=== PATIENT | male | born 1975 | race Caucasian/White ===

== ENCOUNTER 2023-07-07 13:42 | Inpatient (IN) | payer MEDICARE, SELFPAY ==
[2023-07-07 09:22] VITALS: BP 123/81
[2023-07-07 09:40] LABS: % Basophils 1.1 % (0-2); % Eosinophils 1.8 % (0-6); % Immature Granulocytes 2.3 % (0-0.5); % Lymphocytes 19.1 % (20.5-51.1); % Monocytes 10.9 % (1.7-9.3); % Neutrophils 64.8 % (42.2-75.2); Absolute Basophils 0.1 10^3/uL (0-0.2); Absolute Eosinophils 0.2 10^3/uL (0-0.7); Absolute Immature Granulocytes 0.2 10^3/uL (0-0.05); Absolute Lymphocytes 1.8 10^3/uL (1.2-3.4); Hematocrit 47.2 % (39.0-52.0); Hemoglobin 16.9 g/dL (13.0-18.0); Mean Corp Hgb Conc. 35.8 g/dL (33.0-37.0); Mean Corpuscular Hgb 29.8 pg (27.0-31.0); Mean Corpuscular Volume 83.2 fL (80.0-94.0); Mean Platelet Volume 9.7 fL (7.4-10.4); Nucleated Red Blood Cells % 0 % (-); Platelet Count 415 10^3/uL (130-400); Red Blood Cell Count 5.67 10^6/uL (4.70-6.10); Red Cell Dist. Width 13.9 % (11.5-14.5); White Blood Cell Count 9.3 10^3/uL (4.8-10.8)
[2023-07-07 10:00] LABS: ALT (SGPT) 23 U/L (0-50); AST (SGOT) 26 U/L (17-59); Albumin 4.2 g/dl (3.5-5.0); Alkaline Phosphatase 76 U/L (38-126); Blood Urea Nitrogen 6 mg/dl (9-20); Calcium 9.4 mg/dl (8.4-10.2); Carbon Dioxide 24 mmol/L (22-30); Chloride 87 mmol/L (98-107); Glucose 106 mg/dl (70-99); Potassium 5.2 mmol/L (3.5-5.1); Sodium 119 mmol/L (135-145); Total Bilirubin 0.7 mg/dl (0.2-1.3); Total Protein 6.7 g/dl (6.3-8.2); eGFR > 60.00
--- NOTE | 2023-07-07 10:27 | ED.GENMED ---
History of Present Illness
General
Chief Complaint: Abnormal Lab Value
Time Seen by Provider: 07/07/23 10:05
Travel History
Have you had any contact with someone who has COVID-19?: No
Do you have any symptoms of coronavirus? Fever > 100 degrees, chills, cough, shortness of breath, sore throat, loss of taste or smell, muscle aches, or headache?: No
History of Present Illness
History of Present Illness:
47-year-old male with a history of polycythemia, schizophrenia, hypothyroidism, and alcohol abuse now in remission presents to the emergency department due to abnormal outpatient labs. He denies any complaints, states he saw his primary care
physician for routine checkup and was noted to have a sodium level of 119. He does have prior history of mild hyponatremia that was felt to be most likely due to alcohol abuse. He does take multiple antipsychotics as well as spironolactone. In
regards to fluid intake he states 'I drink 1 L of soda a day and nothing else'. States that he no longer drinks alcohol. Denies any fevers or chills. Denies any dizziness or lightheadedness
Past History
Past History
ED Past Medical History: HTN, Hypercholesterolemia and Psychiatric (schizophrenia, alcohol abuse)
Social History
Tobacco: Smoker
Alcohol: Chronic alcoholic
Personal: Single
Living: other (detention)
Review of Systems
Review of Systems
Allergies reviewed?: Yes
All Other Systems: ROS reviewed and negative except as documented in HPI and ROS
Phy Exam
Physical Exam
Physical Exam:
GEN: Well appearing, NAD, WDWN
HEENT: Oral mucosa moist, no scleral icterus
Cardiac: Regular rate
Lung: No respiratory distress, no tachypnea
MSK: No gross deformity or injuries
Skin: Good color, no pallor or jaundice, no rashes
Neuro: AO x3, moves all extremities freely. Cranial nerves II through XII grossly intact
Psych: Calm, cooperative
Course
Orders/Labs/Results
Orders:
Orders
07/07/23 Breakfast
Cholesterol Lowering
At Your Request: Limited Participation
Does patient need a safe tray?: No
Fluid Restriction: 1200 mL/day (40 oz)
Cholesterol Lowering: Sodium, 2 Gram
07/07/23 09:35
Alcohol Urgent
Complete Blood Count/With Diff Urgent
Comprehensive Metabolic Panel Urgent
Cortisol, Random Urgent
Comment: CORTISOL ADDED ONBY FLOOR 1:30PM 07-07-23
Serum Osmolality Urgent
Comment: ADD ON
TSH Reflex To Free T4 Urgent
Comment: ADD ON
07/07/23 10:10
Add On- LAB Urgent
Tests Added?: serum osmolality, alcohol, TSH w reflex
07/07/23 10:42
Osmolality, Random Urine Urgent
Date Specimen was Collected: 07/07/23
Time Specimen was Collected: 10:34
Urinalysis Reflex To Culture Urgent
Date Specimen was Collected: 07/07/23
Time Specimen was Collected: 10:34
Urine Microscopic Reflex Cult Urgent
Urine Sodium Urgent
Date Specimen was Collected: 07/07/23
Time Specimen was Collected: 10:34
07/07/23 11:51
Nicotine [Nicoderm Transdermal] 14 mg TRANSDERM NOW STA
07/07/23 13:00
3% Sodium Chloride 250 ml [Sodium Chloride 3%] 150 ml IV ONCE
07/07/23 13:18
Admit/Transfer Patient As Directed
Co-Sign Provider:
Level of Care: Inpatient admission
Assign to:: Telemetry
Physician / Group: rohit
Diagnosis: hyponatremia
Reason for Telemetry: Other
Other Reason for Telemetry: hyponatremia
Date to Stop Telemetry: 07/09/23
Time to Stop Telemetry: 11:00
Reason for Hospitalization: hyponatremia
Expected length of stay greater than two midnights?: Yes
ELOS- Estimated Length of Stay in days: 3
I certify the patient meets the requirements for IP care: Yes
07/07/23 13:22
Code Status As Directed
Resuscitation Status: Full Code
07/07/23 13:33
Add On- LAB Urgent
Tests Added?: cortisol
07/07/23 14:37
Acetaminophen [Tylenol] 650 mg PO Q4HPRN PRN
07/07/23 14:37
NEPHROLOGY CONSULT Routine
Consulting Provider: Vishnu Zuluaga
Was physician already notified: Yes
Activity As Directed
Activity Level: As Tolerated
Vital Signs As Directed
Frequency: Per unit guidelines
DX Deep Vein Thrombosis Video Routine
07/07/23 14:58
Cortisol, Random Stat
07/07/23 18:00
Clopidogrel Bisulfate [Plavix] 75 mg PO QPM
Enoxaparin Sodium [Lovenox] 40 mg SC QPM
07/07/23 20:00
Carbamazepine [Tegretol] 200 mg PO BID
Divalproex Delayed Rel. 12 Hr [Depakote (12 Hr Release)] 500 mg PO BID
Lisinopril [Zestril] 20 mg PO BID
Metoprolol Xl [Toprol Xl] 25 mg PO BID
07/07/23 22:00
Atorvastatin [Lipitor] 80 mg PO HS
Risperidone [Risperdal] 3 mg PO HS
07/08/23 06:00
Basic Metabolic Panel IN AM
Complete Blood Count/No Diff IN AM
07/08/23 07:00
Levothyroxine [Synthroid] 25 mcg PO DAILY@0700
07/08/23 08:00
Amlodipine [Norvasc] 10 mg PO Daily
Aspirin Chewable [Low Strength Aspirin] 81 mg PO DAILY
Nicotine [Nicoderm Transdermal] 14 mg TRANSDERM DAILY
07/09/23 06:00
Basic Metabolic Panel IN AM
Complete Blood Count/No Diff IN AM
07/09/23 11:00
DC Protocol for Telemetry ONCE
07/10/23 06:00
Basic Metabolic Panel IN AM
Complete Blood Count/No Diff IN AM
07/11/23 06:00
Basic Metabolic Panel IN AM
Complete Blood Count/No Diff IN AM
07/12/23 06:00
Basic Metabolic Panel IN AM
Complete Blood Count/No Diff IN AM
Abnormal Lab Results
07/07/23 07/07/23
09:35 10:42
Plt Count 415 H 10^3/uL
(130-400)
Abs Immat Gran (auto) 0.2 H 10^3/uL
(0-0.05)
Absolute Monos (auto) 1.0 H 10^3/uL
(0.1-0.6)
Immature Gran % 2.3 H %
(0-0.5)
Lymphocytes % 19.1 L %
(20.5-51.1)
Monocytes % 10.9 H %
(1.7-9.3)
Sodium 119 L* mmol/L
(135-145)
Potassium 5.2 H mmol/L
(3.5-5.1)
Chloride 87 L mmol/L
(98-107)
BUN 6 L mg/dl
(9-20)
Glucose 106 H mg/dl
(70-99)
Serum Osmolality 253 L mOsm/kg
(275-300)
Urine Ketones 1+ A
(Negative)
Urine Urobilinogen 2+ A
(Neg - 1+)
Leukocyte Esterase Rfl Trace A
(Negative)
Urine Bacteria (Reflex) Few A
(Negative)
Urine Sodium 16 L mmol/L
(30-90)
07/07/23 09:35
07/07/23 09:35
Vital Signs
Initial and Last Documented VS:
Initial Vital Signs
Temp Pulse Resp BP Pulse Ox
98.2 F 67 16 123/81 100
07/07/23 09:22 07/07/23 09:22 07/07/23 09:22 07/07/23 09:22 07/07/23 09:22
Last Documented Vital Signs
Temp Pulse Resp BP Pulse Ox
98 F 62 18 159/86 100
07/07/23 14:51 07/07/23 14:51 07/07/23 14:51 07/07/23 14:51 07/07/23 14:51
MDM/Problems Addressed
MDM/Problems Addressed:
Hyponatremia was confirmed in the emergency department today. The labs were discussed with nephrology on-call who requested we start hypertonic saline at a rate of 20 cc/h for a total of 150 mL. Patient be admitted to the hospitalist service.
Hyponatremia is likely multifactorial in the setting of carbamazepine use/SIADH coupled with spironolactone
*Critical Care Note
Total Time (30-74mins, 75-104mins- exclusive of procedures): 30 minutes
comment:
Critical care time: 30 minutes
Critical care time was exclusive of: Separately billable procedures, treating other patients, and teaching time
Critical care was necessary to treat or prevent imminent or life-threatening deterioration of the following conditions: hyponatremia
Critical care time spent personally by me on the following activities:
[x] Review of old charts
[x] Obtaining history from patient or surrogate
[x] Ordering and review of the laboratory studiesx
[ ] Ordering and review of radiographic studies
[x] Ordering and performing treatments and interventions
[x] Patient patient's response to treatment
[x] Development of treatment plan with patient or surrogate
ED Attending Note
-
Portions of this chart may have been created with voice recognition software.� Occasional wrong word or��sound alike� substitutions may have occurred due to the inherent limitations of voice recognition software.
Discharge Plan
Departure
Patient Disposition: Admit
Date of Disposition: 07/07/23
Time of Disposition: 11:54
Presentation/result/management discussed w/ accepting MD/DO: Hospitalist
Discharge Problem:
Hyponatremia
Interventions
Interventions:
*Risk Screen - Suicide Last Done: 07/07/23 13:52
*General Assessment Last Done: 07/07/23 13:52
*Neglect/Abuse Screening Last Done: 07/07/23 13:52
ED- Fall Risk Assessment Last Done: 07/07/23 14:13
*ED COVID-19 Vaccine History Last Done: 07/07/23 13:52
*Nursing Disposition Last Done: 07/07/23 14:13
Discharge Date and Time
Discharge Date/Time: 07/07/23 14:30
[2023-07-07 10:35] LABS: Alcohol None Detected
[2023-07-07 11:01] LABS: Osmolality Serum 253 mOsm/kg (275-300)
[2023-07-07 11:02] LABS: TSH Reflex To Free T4 1.64 uIU/ml (0.47-4.68)
[2023-07-07 11:13] LABS: Urine Sodium 16 mmol/L (30-90)
[2023-07-07 11:20] LABS: Osmolality Urine 338 mOsm/kg (300-900)
[2023-07-07 11:32] LABS: Urine Albumin Trace (Neg - Trace); Urine Bilirubin Negative (Negative); Urine Character Clear (Clear); Urine Color Yellow; Urine Glucose Negative (Negative); Urine Ketone 1+ (Negative); Urine Leukocyte Trace (Negative); Urine Nitrite Negative (Negative); Urine Occult Blood Negative (Negative); Urine Urobilinogen 2+ (Neg - 1+)
[2023-07-07 11:52] LABS: Urine Bacteria Few (Negative); Urine Red Blood Cell 0-2 /HPF (0-2); Urine Squamous Cell 0-2 /LPF (Few); Urine White Cell 0-2 /HPF (0-5)
[2023-07-07] MEDS: NICODERM TRANSDERMAL 14 MG TRANSDERM (12:02)
--- NOTE | 2023-07-07 12:49 | HPS.HSE ---
Family Physician
-
Family Physician: Reinaldo Beyer
Chief Complaint
-
low sodium
History of Present Illness
47 year old with past medical history for polycythemia vera, schizophrenia, hypothyroidism, alcohol abuse, coronary artery disease status post 1 stent presented with low sodium. Patient had and had blood work done yesterday. He was asked to come
to the ER by nurse practitioner for low sodium. Patient drinks 1 L soda every day. Patient denies any headache, dizziness, syncopal episode. Patient denies any blurry vision, numbness, tingling. Patient denies any chest pain, short of breath.
Patient denies any abdominal pain, nausea, vomiting, diarrhea. Patient denies dysuria hematuria. Patient had a cardiac stent placed last week at [facility].
Sodium of 119. patient started on 3% saline. Admitting for further management
Medical History
Past Medical History
Past Medical History: Reports Other
Additional Past Medical History:
Hypothyroidism
Schizophrenia
Hyperlipidemia
Tobacco abuse
peripheral vascular disease
Alcohol abuse
Past Surgical History: Reports Other
Additional Past Surgical History:
Coronary artery disease
Social History
Tobacco: Smoker (1 pack a day)
Alcohol: Former
Drug: None
Personal: Single
Living: Assisted Living
Family History
Family History: Not pertinent
Allergies / Home Medications
Allergies reflects when Allergies were last updated in [facility].
Home Medications with original date entered in [facility]
Allergy/Medication List:
Allergies
Allergy/AdvReac Type Severity Reaction Status Date / Time
codeine Allergy stiff Verified 08/22/20 10:37
muscles
Home Medications
carbamazepine 200 mg tablet 200 mg PO BID Mental Health/Anxiety 08/22/20
levothyroxine 25 mcg tablet 25 mcg PO DAILY@0700 Thyroid 08/22/20
risperidone 3 mg tablet (Risperdal) 3 mg PO HS Mental Health/Anxiety 08/22/20
amlodipine 10 mg tablet (Norvasc) 10 mg PO Daily Blood Pressure 07/07/23
aspirin 81 mg chewable tablet 81 mg PO DAILY 07/07/23
atorvastatin 80 mg tablet 80 mg PO HS 07/07/23
clopidogrel 75 mg tablet 75 mg PO QPM 07/07/23
divalproex 500 mg tablet,delayed release 500 mg PO BID seizure and psych 07/07/23
lisinopril 20 mg tablet 20 mg PO BID 07/07/23
metoprolol succinate 25 mg tablet,extended release 24 hr 25 mg PO BID 07/07/23
spironolactone 25 mg tablet 25 mg PO DAILY 07/07/23
Review of Systems
-
Constitutional: Reports No Symptoms
EENT: Reports No Symptoms
Respiratory: Reports No Symptoms
Cardiac: Reports No Symptoms
Abdomen/GI: Reports No Symptoms
: Reports No Symptoms
Musculoskeletal: Reports No Symptoms
Skin: Reports No Symptoms
Neurological: Reports No Symptoms
Endocrine: Reports No Symptoms
Hematologic/Lymphatic: Reports No Symptoms
Psych: Reports No Symptoms
Physical Exam
Vital Signs
Vital Signs
Temp Pulse Resp BP Pulse Ox
98.2 F 67 16 123/81 100
07/07/23 09:22 07/07/23 09:22 07/07/23 09:22 07/07/23 09:22 07/07/23 09:22
Physical Exam
General: Well Developed, Well Nourished and No Apparent Distress
HEENT: NormoCephalic, Moist mucous membranes and Atraumatic
Respiratory: Clear
Cardiac: S1/S2 and Regular Rhythm; No Murmur or Rub
GI: Soft, Non Tender, Non Distended and Normal Bowel Sounds; No Organomegaly
Rectal: Deferred by Provider
Musculoskeletal: No Clubbing, No Cyanosis and No Edema
Skin: No Rash
Neuro: AO x 3 and Nonfocal/grossly intact
Psych: Calm
Laboratory Results
-
07/07/23 09:35
07/07/23 09:35
Laboratory Results
Total Bilirubin 0.7 mg/dl (0.2-1.3) 07/07/23 09:35
AST 26 U/L (17-59) 07/07/23 09:35
ALT 23 U/L (0-50) 07/07/23 09:35
Alkaline Phosphatase 76 U/L (38-126) 07/07/23 09:35
Data Reviewed
-
Lab Data: Labs Reviewed by me
Impression/Plan
-
asymptomatic hyponatremia/hyperkalemia likely from polydipsia/psych medication
-na 119, k 5.2,serum osm 253
3% normal saline continued
-BMP in am
-fluid restriction
-nephro following
# Essential hypertension
-Blood pressure stable in the ER
-Norvasc continued
-Lisinopril continued
-Metoprolol continued
-Hold spironolactone
# Coronary artery disease
-Status post cardiac stent
-Aspirin continued
-Plavix continued
# History of schizophrenia
-Carbamazepine continued
-Depakote continue
-Risperidone continued
# Hypothyroidism
-Levothyroxine continued
# DVT prophylaxis
-Lovenox subcu
CODE STATUS
- Full code
[2023-07-07 12:54] VITALS: BP 154/90
[2023-07-07] MEDS: SODIUM CHLORIDE 3% 150 IV (12:57)
--- NOTE | 2023-07-07 13:40 | W.CON.NEPH ---
Consultation
-
Date/Time Consultation Requested: July 07, 2023 11:00am
Date/Time Consultation Performed: July 07, 2023 1:00 pm
Requesting Provider: Shaista
Performing Provider: Jefferson
Reason for Consultation: Hyponatremia
Medical History
-
Chief Complaint: Hyponatremia
History of Present Illness:
The patient is a 47-year-old male with a past medical history of hyponatremia whom we had actually seen when he presented in 2020 for symptomatic hyponatremia and a serum sodium level of 101. Following that visit he was discharged on a fluid
restriction and Lasix. The patient tells me he has not been on Lasix or fluid restrict. The patient does have a significant history of schizophrenia and is currently maintained on carbamazepine and divalproex as he has had prior seizure activity
from alcohol withdrawal. He does have a history of alcohol abuse but states he has not had a drink in over 3 years. He does have a history of hypertension which has been controlled on the combination of his amlodipine metoprolol lisinopril and
Aldactone. He is chronically maintained on levothyroxine for his hyponatremia. The patient had been seen by our nephrology office on [address] Boudreaux for consultation for sodium of 128 which had been noted from June 23, 2023. He was to be
placed on a fluid restriction although he states he is not on fluid. Last evening I received a call from [place] with a serum sodium of 119 and I contacted the patient and told him to present to the emergency room where his euvolemic
hyponatremia and elevated risk of seizure. On presentation to the emergency room, he denies specific complaints and states that he feels at his baseline.
Past Medical History
Seizure disorder likely from alcohol withdrawal
Chronic tobacco
Former alcohol abuse
Hypertension
Schizophrenia
Anxiety
Hypothyroidism
Dyslipidemia
Polycythemia
Social History
Ex alcoholic
Continues to smoke
Lives in a [facility]
Family History
No chronic kidney disease
Allergies / Home Medications
Allergy/AdvReac Type Severity Reaction Status Date / Time
codeine Allergy stiff Verified 08/22/20 10:37
muscles
�Medication �Instructions �Recorded �Confirmed �Type
carbamazepine 200 mg tablet 200 mg PO BID Neurological 08/22/20 07/07/23 History
Condition
levothyroxine 25 mcg tablet 25 mcg PO DAILY@0700 Thyroid 08/22/20 07/07/23 History
risperidone 3 mg tablet (Risperdal) 3 mg PO HS Neurological Condition 08/22/20 07/07/23 History
amlodipine 10 mg tablet (Norvasc) 10 mg PO Daily Blood Pressure 07/07/23 07/07/23 History
aspirin 81 mg chewable tablet 81 mg PO DAILY Blood Clot 07/07/23 07/07/23 History
Prevention/Tx
atorvastatin 80 mg tablet 80 mg PO HS High Cholesterol 07/07/23 07/07/23 History
clopidogrel 75 mg tablet 75 mg PO QPM Blood Clot 07/07/23 07/07/23 History
Prevention/Tx
divalproex 500 mg tablet,delayed 500 mg PO BID seizure and psych 07/07/23 07/07/23 History
release
lisinopril 20 mg tablet 20 mg PO BID Blood Pressure 07/07/23 07/07/23 History
metoprolol succinate 25 mg 25 mg PO BID Heart Condition 07/07/23 07/07/23 History
tablet,extended release 24 hr
spironolactone 25 mg tablet 25 mg PO DAILY Heart Condition 07/07/23 07/07/23 History
Review of Systems
-
History Source: Patient
All other systems: Negative unless noted
Constitutional: Other (Decreased appetite)
EENT: No Symptoms
Respiratory: No Symptoms
Cardiac: No Symptoms
Abdomen/GI: No Symptoms and Anorexia
: No Symptoms
Musculoskeletal: No Symptoms
Skin: No Symptoms
Neurological: No Symptoms and Other
Endocrine: No Symptoms
Hematologic/Lymphatic: No Symptoms
Physical Exam
Vital Signs
Vital Signs
Temp Pulse Resp BP Pulse Ox
98.2 F 67 16 123/81 100
07/07/23 09:22 07/07/23 09:22 07/07/23 09:22 07/07/23 09:22 07/07/23 09:22
Lab Results
07/07/23 09:35
07/07/23 09:35
WBC 9.3 10^3/uL (4.8-10.8) 07/07/23 09:35
RBC 5.67 10^6/uL (4.70-6.10) 07/07/23 09:35
Hgb 16.9 g/dL (13.0-18.0) 07/07/23 09:35
Hct 47.2 % (39.0-52.0) 07/07/23 09:35
Plt Count 415 10^3/uL (130-400) H 07/07/23 09:35
Sodium 119 mmol/L (135-145) L* 07/07/23 09:35
Potassium 5.2 mmol/L (3.5-5.1) H 07/07/23 09:35
Chloride 87 mmol/L (98-107) L 07/07/23 09:35
Carbon Dioxide 24 mmol/L (22-30) 07/07/23 09:35
BUN 6 mg/dl (9-20) L 07/07/23 09:35
Creatinine 0.7 mg/dL (0.7-1.3) 07/07/23 09:35
eGFR > 60.00 07/07/23 09:35
Glucose 106 mg/dl (70-99) H 07/07/23 09:35
Calcium 9.4 mg/dl (8.4-10.2) 07/07/23 09:35
Albumin 4.2 g/dl (3.5-5.0) 07/07/23 09:35
Physical Exam
General: AOx3, No Distress and Nontoxic
HEENT: PERRL, EOMI, Anicteric, Conjunctivae Clear, Ear/Nose Intact, Hearing Normal, Oropharynx Clear/Moist, Dentition Intact, Neck Supple, Trachea Midline, No JVD and No Thyromegaly
Respiratory: Clear
Cardiac: S1/S2 and Regular Rate/Rhythm
Breast: Deferred by me
Abdomen: Soft, Nontender, Nondistended, Normal Bowel Sounds and No Hepatosplenomegaly
Rectal: Deferred by Provider
Genito-urinary: No Costovertebral Tender
Musculoskeletal: No Clubbing, No Cyanosis and No Edema
Skin: No Rash
Neuro: Nonfocal/Grossly Intact and Strength (5 out of 5 in both upper and lower extremities, no clonic activity)
Hematologic/Lymphatic: No Cervical Lymphadenopathy, No Submandibular Lymphadenopathy and No Supraclavicular Lymphadenopathy
Psych: Appropriate and Other (Profoundly flat affect)
Assessment/Plan
-
Impression:
Euvolemic hyponatremia acute on chronic (119)
History of schizophrenia
History of anxiety
History of alcohol abuse
Hypertension
Dyslipidemia
Hypothyroidism
History of withdrawal seizures
Plan:
Euvolemic Hyponatremia:
-Urine osmolality of 328 consistent with some component of excess ADH
-I suspect his hyponatremia is driven by the presence of his carbamazepine with underlying SIADH mechanism
-Patient will be placed on 1200 cc/day fluid restrict
-Patient is status post 250 cc 3% saline initiated this morning
-Recheck lytes this afternoon
-Thyroid function test except
-Patient will likely need fluid restriction and salt tablets administered at discharge
-Ideally carbamazepine could be titrated back
-Will also obtain chest x-ray given smoking history and history of hyponatremia
-Patient is at high clinical risk for seizure given profound hyponatremia and due to the fact that the patient has a seizure history
Data Reviewed
-
Radiology: Image Personally Visualized and interpreted (Chest x-ray to be obtained and personally reviewed)
Labs: Labs Reviewed by me (Reviewed urine osmolality and BMP)
Old Records: Reviewed
Critical Care Time (in minutes): Reviewed former hyponatremia consult from September 2020,06/23/23: Na 128
[2023-07-07 14:00] VITALS: BP 154/87
--- NOTE | 2023-07-07 14:00 | W.PN.UPDATE ---
Update Note
Progress Note Update
This is an addendum in reference to the history and physical obtained by Megan Wu on July 07, 2023.
Patient seen and examined independently--agree with plan as set forth
GENERAL: well developed, well nourished, male in no apparent distress
HEENT: NC/AT
HEART: regular rate and rhythm, +S1, +S2
LUNGS : clear to auscultation bilaterally
ABDOM: soft, nontender, nondistended, + bowel sounds
EXT: no cyanosis, clubbing, or edema
NEUROLOGIC: grossly intact
asymptomatic hyponatremia/hyperkalemia likely from polydipsia/psych medication--ADMIT to TELE--consult/apprec renal input--3% hypertonic saline--1200ml fluid restriction--hold aldactone--for completeness, check random cortisol, if low, will need
formal stim test
Essential hypertension-- cont Norvasc, lisinopril, metoprolol
Coronary artery disease--Status post cardiac stent--Aspirin continued--Plavix continued
History of schizophrenia--Carbamazepine continued--Depakote continue--Risperidone continued--may need psych eval for meds.....
Hypothyroidism--Levothyroxine continued--TSH WNL
DVT prophylaxis--Lovenox subcu
CODE STATUS- Full code
[2023-07-07 14:46] LABS: Cortisol, Random 24.8 ug/dl
[2023-07-07 14:51] VITALS: BP 159/86
[2023-07-07 15:16] LABS: Carbon Dioxide 25 mmol/L (22-30); Chloride 85 mmol/L (98-107); Potassium 5.1 mmol/L (3.5-5.1); Sodium 121 mmol/L (135-145)
[2023-07-07] MEDS: PLAVIX 75 MG PO (17:38)
[2023-07-07] MEDS: LOVENOX SC (17:38)
[2023-07-07 18:17] LABS: Cortisol, Random 17.4 ug/dl
[2023-07-07 19:00] VITALS: BP 158/80
[2023-07-07] MEDS: TEGRETOL 200 MG PO (21:15)
[2023-07-07] MEDS: TOPROL XL 25 MG PO (21:16)
[2023-07-07] MEDS: DEPAKOTE (12 HR RELEASE) 500 MG PO (21:16)
[2023-07-07] MEDS: ZESTRIL 20 MG PO (21:16)
[2023-07-07] MEDS: LIPITOR 80 MG PO (21:26)
[2023-07-07] MEDS: RISPERDAL 3 MG PO (21:27)
[2023-07-07 23:00] VITALS: BP 140/86
[2023-07-08 03:00] VITALS: BP 137/83
[2023-07-08] MEDS: SYNTHROID 25 MCG PO (06:11)
[2023-07-08 07:21] LABS: Hemoglobin 16.5 g/dL (13.0-18.0); Mean Corp Hgb Conc. 35.1 g/dL (33.0-37.0); Mean Corpuscular Hgb 29.4 pg (27.0-31.0); Mean Corpuscular Volume 83.8 fL (80.0-94.0); Mean Platelet Volume 9.6 fL (7.4-10.4); Platelet Count 412 10^3/uL (130-400); Red Blood Cell Count 5.61 10^6/uL (4.70-6.10); Red Cell Dist. Width 14.3 % (11.5-14.5)
[2023-07-08 07:34] VITALS: BP 140/74
[2023-07-08 07:49] LABS: Blood Urea Nitrogen 13 mg/dl (9-20); Calcium 9.1 mg/dl (8.4-10.2); Carbon Dioxide 23 mmol/L (22-30); Chloride 94 mmol/L (98-107); Estimated Creatinine Clearance 107 ml/min; Glucose 80 mg/dl (70-99); Potassium 5.3 mmol/L (3.5-5.1); Sodium 125 mmol/L (135-145); eGFR > 60.00
[2023-07-08] MEDS: NICODERM TRANSDERMAL 14 MG TRANSDERM (08:51)
[2023-07-08] MEDS: TOPROL XL 25 MG PO ×2 (08:52→20:05)
[2023-07-08] MEDS: DEPAKOTE (12 HR RELEASE) 500 MG PO ×2 (08:52→20:01)
[2023-07-08] MEDS: LOW STRENGTH ASPIRIN 81 MG PO (08:52)
[2023-07-08] MEDS: TEGRETOL 200 MG PO ×2 (08:52→20:03)
[2023-07-08] MEDS: NORVASC 10 MG PO (08:52)
[2023-07-08] MEDS: ZESTRIL 20 MG PO ×2 (08:53→20:05)
[2023-07-08 11:52] VITALS: BP 127/77
--- NOTE | 2023-07-08 12:46 | W.PN.NEPH.PH ---
Today's Communication / Plan
-
salt
Assessment/Plan
-
Impression:
Euvolemic hyponatremia acute on chronic (119)
History of schizophrenia
History of anxiety
History of alcohol abuse
Hypertension
Dyslipidemia
Hypothyroidism
History of withdrawal seizures
Plan:
-follow BMP
-add NaCl 1 gm BID
-continue FR for now
-
-
Date of Service: July 08, 2023
CC / HPI / ROS
-
Chief Complaint:
hyponatremia
History of Present Illness:
Na up to 125 with 3%
BP stable
says he does not drink more than 32 oz/day
Review of Systems:
no CP/SOB
Labs
-
Labs:
WBC 10.0 10^3/uL (4.8-10.8) 07/08/23 06:33
RBC 5.61 10^6/uL (4.70-6.10) 07/08/23 06:33
Hgb 16.5 g/dL (13.0-18.0) 07/08/23 06:33
Hct 47.0 % (39.0-52.0) 07/08/23 06:33
Plt Count 412 10^3/uL (130-400) H 07/08/23 06:33
Sodium 125 mmol/L (135-145) L 07/08/23 06:33
Potassium 5.3 mmol/L (3.5-5.1) H 07/08/23 06:33
Chloride 94 mmol/L (98-107) L 07/08/23 06:33
Carbon Dioxide 23 mmol/L (22-30) 07/08/23 06:33
BUN 13 mg/dl (9-20) 07/08/23 06:33
Creatinine 0.7 mg/dL (0.7-1.3) 07/08/23 06:33
eGFR > 60.00 07/08/23 06:33
Glucose 80 mg/dl (70-99) 07/08/23 06:33
Calcium 9.1 mg/dl (8.4-10.2) 07/08/23 06:33
Albumin 4.2 g/dl (3.5-5.0) 07/07/23 09:35
Physical Exam
-
Vital Signs:
Vital Signs
Temp Pulse Resp BP Pulse Ox
98 F 71 18 127/77 96
07/08/23 11:52 07/08/23 11:52 07/08/23 11:52 07/08/23 11:52 07/08/23 11:52
Cardiovascular:: Regular rate and rhythm
Respiratory:: Bilateral: Coarse
Lung Excursion:: Normal
Abdomen:: Nontender and Soft
Bowel Sounds:: Normal
Extremity Edema:: None: Bilateral:
[2023-07-08] MEDS: SODIUM CHLORIDE 1 GRAM PO ×2 (13:06→20:01)
--- NOTE | 2023-07-08 13:07 | W.PN.HOSP.TC ---
Today's Communication/Plan
-
hopeful d/c tomorrow
Assessment / Plan
Assessment / Plan
pt is a 47 year old male
asymptomatic hyponatremia/hyperkalemia likely from polydipsia/psych medication---apprec renal input--3% hypertonic saline--1200ml fluid restriction--hold aldactone--for completeness, random cortisol appropriate--salt tabs started by renal
Essential hypertension-- cont Norvasc, lisinopril, metoprolol
Coronary artery disease--Status post cardiac stent--Aspirin continued--Plavix continued
History of schizophrenia--Carbamazepine continued--Depakote continue--Risperidone continued--may need psych eval for meds.....
Hypothyroidism--Levothyroxine continued--TSH WNL
DVT prophylaxis--Lovenox subcu
CODE STATUS- Full code
Anticipated Discharge: Within 24 hours
Subjective/Interval History
-
Date of Service: July 08, 2023
pt without c/o
Objective Data
-
Labs:
Laboratory Results
07/08/23
06:33
WBC 10.0
Hgb 16.5
Hct 47.0
Plt Count 412 H
Sodium 125 L
Potassium 5.3 H
Chloride 94 L
Carbon Dioxide 23
BUN 13
Creatinine 0.7
Glucose 80
Calcium 9.1
Vital Signs:
max temp for 24 hours
07/07/23
14:51
Temp 98 F
Vital Signs
Temp Pulse Resp BP Pulse Ox
98 F 71 18 127/77 96
07/08/23 11:52 07/08/23 11:52 07/08/23 11:52 07/08/23 11:52 07/08/23 11:52
I&O
07/07/23 07/08/2324
06:59 06:59 06:59
Intake Total 420 / 420
Balance 420 / 420
Review of Systems
-
All other systems: Reviewed and negative
Physical Exam
-
General: Well Developed, Well Nourished and No Apparent Distress
HEENT: Normocephalic and Atraumatic
Respiratory: Clear to Auscultation; Negative Wheezes or Rhonchi
Cardiac: Regular Rhythm and S1/S2; Negative Murmur
GI: Soft, Nontender, Nondistended and Normal Bowel Sounds
Musculoskeletal: No Clubbing, No Cyanosis and No Edema
Neuro: Awake and Alert
Psych: Calm
--- NOTE | 2023-07-08 15:11 | CM ---
Met with patient at bedside; initial assessment completed
Chart reviewed: patient had cardiac stent procedure @ [facility] last week and has a Psych history
Pharmacy: [facility] @ [facility], [address] [place] [address], [facility]
Patient reported that he lives in a [facility]; has a room and shares bath and kitchen
PLOF: patient reported that he is independent with ambulation, steps, and ADLs; drives
Transport: plans to call [facility] for ride home
SNF/Rehab/Home Care utilization history: none reported
Plan: discharge to [facility] when medically stable
[2023-07-08 15:26] VITALS: BP 134/77
[2023-07-08] MEDS: LOVENOX 40 MG SC (17:22)
[2023-07-08] MEDS: PLAVIX 75 MG PO (17:23)
[2023-07-08 19:58] VITALS: BP 135/74
[2023-07-08] MEDS: RISPERDAL 3 MG PO (21:27)
[2023-07-08] MEDS: LIPITOR 80 MG PO (21:27)
[2023-07-08 23:10] VITALS: BP 146/74
[2023-07-09 03:26] VITALS: BP 120/69
[2023-07-09] MEDS: SYNTHROID 25 MCG PO (06:02)
[2023-07-09 07:20] VITALS: BP 134/80
[2023-07-09] MEDS: TEGRETOL 200 MG PO ×2 (07:58→19:56)
[2023-07-09] MEDS: TOPROL XL 25 MG PO ×2 (07:58→19:56)
[2023-07-09] MEDS: NORVASC 10 MG PO (07:58)
[2023-07-09] MEDS: LOW STRENGTH ASPIRIN 81 MG PO (07:58)
[2023-07-09] MEDS: DEPAKOTE (12 HR RELEASE) 500 MG PO ×2 (07:59→19:56)
[2023-07-09] MEDS: NICODERM TRANSDERMAL 14 MG TRANSDERM (07:59)
[2023-07-09] MEDS: ZESTRIL 20 MG PO (08:00)
[2023-07-09 08:21] LABS: Hematocrit 49.1 % (39.0-52.0); Hemoglobin 16.6 g/dL (13.0-18.0); Mean Corp Hgb Conc. 33.8 g/dL (33.0-37.0); Mean Corpuscular Hgb 29.4 pg (27.0-31.0); Mean Corpuscular Volume 86.9 fL (80.0-94.0); Platelet Count 437 10^3/uL (130-400); Red Blood Cell Count 5.65 10^6/uL (4.70-6.10); Red Cell Dist. Width 14.6 % (11.5-14.5); White Blood Cell Count 8.9 10^3/uL (4.8-10.8)
[2023-07-09 08:30] LABS: Blood Urea Nitrogen 18 mg/dl (9-20); Calcium 9.6 mg/dl (8.4-10.2); Carbon Dioxide 25 mmol/L (22-30); Chloride 93 mmol/L (98-107); Estimated Creatinine Clearance 83 ml/min; Glucose 75 mg/dl (70-99); Potassium 5.6 mmol/L (3.5-5.1); Sodium 129 mmol/L (135-145); eGFR > 60.00
[2023-07-09] MEDS: SODIUM CHLORIDE 1 GRAM PO ×2 (10:12→19:56)
--- NOTE | 2023-07-09 10:26 | W.PN.HOSP.TC ---
Addendum entered and electronically signed by Razia Noonan MD 07/09/23 11:24:
not cleared for d/c today
Original Note:
Today's Communication/Plan
-
renal to treat K
d/c if cleared by renal
Assessment / Plan
Assessment / Plan
pt is a 47 year old male
asymptomatic hyponatremia/hyperkalemia likely from polydipsia/psych medication---apprec renal input--s/p 3% hypertonic saline--1200ml fluid restriction--holding aldactone--random cortisol appropriate--salt tabs started by renal
Essential hypertension-- cont Norvasc, lisinopril, metoprolol
Coronary artery disease--Status post cardiac stent--Aspirin continued--Plavix continued
History of schizophrenia--Carbamazepine continued--Depakote continue--Risperidone continued--may need psych eval for meds.....
Hypothyroidism--Levothyroxine continued--TSH WNL
DVT prophylaxis--Lovenox subcu
CODE STATUS- Full code
Anticipated Discharge: Today
Subjective/Interval History
-
Date of Service: July 09, 2023
pt without c/o
Objective Data
-
Labs:
Laboratory Results
07/09/23
06:31
WBC 8.9
Hgb 16.6
Hct 49.1
Plt Count 437 H
Sodium 129 L
Potassium 5.6 H
Chloride 93 L
Carbon Dioxide 25
BUN 18
Creatinine 0.9
Glucose 75
Calcium 9.6
Vital Signs:
max temp for 24 hours
07/08/23
19:58
Temp 98.5 F
Vital Signs
Temp Pulse Resp BP Pulse Ox
97.9 F 62 16 134/80 96
07/09/23 07:20 07/09/23 07:58 07/09/23 07:20 07/09/23 07:58 07/09/23 07:20
I&O
07/08/23 07/09/23 07/10/23
06:59 06:59 06:59
Intake Total 420 / 420 1140 / 1140
Balance 420 / 420 1140 / 1140
Review of Systems
-
All other systems: Reviewed and negative
Physical Exam
-
General: Well Developed, Well Nourished and No Apparent Distress
HEENT: Normocephalic and Atraumatic
Respiratory: Clear to Auscultation; Negative Wheezes or Rhonchi
Cardiac: Regular Rhythm and S1/S2; Negative Murmur
GI: Soft, Nontender, Nondistended and Normal Bowel Sounds
Musculoskeletal: No Clubbing, No Cyanosis and No Edema
Neuro: Awake
--- NOTE | 2023-07-09 11:21 | W.PN.NEPH.PH ---
Today's Communication / Plan
-
treat K
Assessment/Plan
-
Impression:
Euvolemic hyponatremia acute on chronic (119)
History of schizophrenia
History of anxiety
History of alcohol abuse
Hypertension
Dyslipidemia
Hypothyroidism
History of withdrawal seizures
Plan:
-follow BMP
-NaCl 1 gm BID
-continue FR for now
-treat K medically
-stop lisinopril, use hydralazine
-
-
Date of Service: July 09, 2023
CC / HPI / ROS
-
Chief Complaint:
hyponatremia
History of Present Illness:
Na up to 129
BP stable
K up to 5.6
says he does not drink more than 32 oz/day
Review of Systems:
no CP/SOB
Labs
-
Labs:
WBC 8.9 10^3/uL (4.8-10.8) 07/09/23 06:31
RBC 5.65 10^6/uL (4.70-6.10) 07/09/23 06:31
Hgb 16.6 g/dL (13.0-18.0) 07/09/23 06:31
Hct 49.1 % (39.0-52.0) 07/09/23 06:31
Plt Count 437 10^3/uL (130-400) H 07/09/23 06:31
Sodium 129 mmol/L (135-145) L 07/09/23 06:31
Potassium 5.6 mmol/L (3.5-5.1) H 07/09/23 06:31
Chloride 93 mmol/L (98-107) L 07/09/23 06:31
Carbon Dioxide 25 mmol/L (22-30) 07/09/23 06:31
BUN 18 mg/dl (9-20) 07/09/23 06:31
Creatinine 0.9 mg/dL (0.7-1.3) 07/09/23 06:31
eGFR > 60.00 07/09/23 06:31
Glucose 75 mg/dl (70-99) 07/09/23 06:31
Calcium 9.6 mg/dl (8.4-10.2) 07/09/23 06:31
Albumin 4.2 g/dl (3.5-5.0) 07/07/23 09:35
Physical Exam
-
Vital Signs:
Vital Signs
Temp Pulse Resp BP Pulse Ox
97.9 F 62 16 134/80 96
07/09/23 07:20 07/09/23 07:58 07/09/23 07:20 07/09/23 07:58 07/09/23 07:20
Cardiovascular:: Regular rate and rhythm
Respiratory:: Bilateral: Coarse
Lung Excursion:: Normal
Abdomen:: Nontender and Soft
Bowel Sounds:: Normal
Extremity Edema:: None: Bilateral:
--- NOTE | 2023-07-09 11:24 | CM ---
Addendum entered by Kimberly Barba 07/09/23 11:28:
Per Irrigation Engineer, lab results abnormal; discharge cancelled
CM met with patient to let him know that he cannot return to [facility] today.
Original Note:
Plan: discharge to [facility] today via [facility] service; no DC needs; signed IMM from 07/06 on the chart
[2023-07-09 11:30] VITALS: BP 153/81
[2023-07-09] MEDS: LOKELMA 10 GRAM PO (12:51)
[2023-07-09 15:40] VITALS: BP 128/78
[2023-07-09] MEDS: PLAVIX 75 MG PO (18:10)
[2023-07-09] MEDS: LOVENOX 40 MG SC (18:10)
[2023-07-09 19:50] VITALS: BP 143/83
[2023-07-09] MEDS: RISPERDAL 3 MG PO (19:56)
[2023-07-09] MEDS: APRESOLINE 25 MG PO (19:56)
[2023-07-09] MEDS: LIPITOR 80 MG PO (19:56)
[2023-07-09 23:29] VITALS: BP 119/73
[2023-07-10] MEDS: SYNTHROID 25 MCG PO (06:07)
[2023-07-10 07:33] VITALS: BP 145/82
[2023-07-10 07:55] LABS: Hematocrit 47.6 % (39.0-52.0); Hemoglobin 16.1 g/dL (13.0-18.0); Mean Corp Hgb Conc. 33.8 g/dL (33.0-37.0); Mean Corpuscular Hgb 29.2 pg (27.0-31.0); Mean Corpuscular Volume 86.2 fL (80.0-94.0); Mean Platelet Volume 9.7 fL (7.4-10.4); Platelet Count 402 10^3/uL (130-400); Red Blood Cell Count 5.52 10^6/uL (4.70-6.10); Red Cell Dist. Width 14.4 % (11.5-14.5); White Blood Cell Count 9.2 10^3/uL (4.8-10.8)
[2023-07-10 08:27] LABS: Blood Urea Nitrogen 19 mg/dl (9-20); Calcium 9.2 mg/dl (8.4-10.2); Carbon Dioxide 22 mmol/L (22-30); Chloride 93 mmol/L (98-107); Estimated Creatinine Clearance 107 ml/min; Glucose 84 mg/dl (70-99); Potassium 5.6 mmol/L (3.5-5.1); Sodium 128 mmol/L (135-145); eGFR > 60.00
[2023-07-10] MEDS: SODIUM CHLORIDE 1 GRAM PO ×2 (08:45→20:12)
[2023-07-10] MEDS: LOW STRENGTH ASPIRIN 81 MG PO (08:45)
[2023-07-10] MEDS: APRESOLINE 25 MG PO ×2 (08:45→20:12)
[2023-07-10] MEDS: NORVASC 10 MG PO (08:45)
[2023-07-10] MEDS: NICODERM TRANSDERMAL 14 MG TRANSDERM (08:45)
[2023-07-10] MEDS: TEGRETOL 200 MG PO ×2 (08:45→20:12)
[2023-07-10] MEDS: DEPAKOTE (12 HR RELEASE) 500 MG PO ×2 (08:45→20:11)
[2023-07-10] MEDS: TOPROL XL 25 MG PO ×2 (08:45→20:11)
--- NOTE | 2023-07-10 10:28 | W.PN.HOSP.TC ---
Today's Communication/Plan
-
.
Assessment / Plan
Assessment / Plan
Physical Exam
General: AOx3, No Distress and Nontoxic
HEENT: PERRL, EOMI, Anicteric, Conjunctivae Clear,
Respiratory: Clear
Cardiac: S1/S2
Abdomen: Soft, Nontender, Nondistended,
Rectal: No rectal bleeding
Genito-urinary: No Costovertebral Tender
Musculoskeletal: No Clubbing, No Cyanosis and No Edema
Skin: No Rash
Neuro: Nonfocal/Grossly Intact and Strength, AAOX3.
Psych: Calm, no agitation.
pt is a 47 year old male
asymptomatic hyponatremia/ acute on chronic
likely from polydipsia/psych medication--
Na at 128, going up slowly
No confusion noted
s/p 3% hypertonic saline--1200ml fluid restriction--holding Aldactone--random cortisol appropriate--salt tabs
Appreciate nephrology help
# Hyperkalemia
Stopped Aldactone and Lisinopril
will give Lokelma
# Essential hypertension-- cont Norvasc, metoprolol
Add Hydralazine while holding Lisinopril and Aldactone
#Coronary artery disease--Status post cardiac stent--Aspirin continued--Plavix continued
#History of schizophrenia
History of anxiety
History of alcohol abuse
Carbamazepine continued--Depakote continue--Risperidone continued-
WIll have to c/w psych med to continue control his psych illness.
#Hypothyroidism--Levothyroxine continued--TSH WNL
#DVT prophylaxis--Lovenox subcu
# CODE STATUS- Full code
Total time spent to see the patient, examine the patient on the floor, review data and lab results, discuss treatment plan with patient, nursing staff around 55 minutes.
Anticipated Discharge: 24 - 48 hours
Subjective/Interval History
-
Date of Service: July 10, 2023
No chest pain
No sob
No abd pain
Objective Data
-
Labs:
Laboratory Results
07/10/23
07:20
WBC 9.2
Hgb 16.1
Hct 47.6
Plt Count 402 H
Sodium 128 L
Potassium 5.6 H
Chloride 93 L
Carbon Dioxide 22
BUN 19
Creatinine 0.7
Glucose 84
Calcium 9.2
Vital Signs:
Vital Signs
Temp Pulse Resp BP Pulse Ox
97.7 F 57 20 145/82 95
07/10/23 07:33 07/10/23 07:33 07/10/23 07:33 07/10/23 07:33 07/10/23 07:33
I&O
07/09/23 07/10/23 07/11/23
06:59 06:59 06:59
Intake Total 1140 / 1140 960 / 960
Balance 1140 / 1140 960 / 960
[2023-07-10] MEDS: LOKELMA 10 GRAM PO (10:43)
--- NOTE | 2023-07-10 14:53 | CM ---
CM reviewed chart and ADC 1-2 days
Call with [facility] residential plumber Ann Pierson [phone]
Pt resides in a [place] residential living home at [facility]- not long-term, staff do provide daily medications
Rx will need to be faxed to [place]- nurse to nurse report needed on dc
Sister is pt's POA if assistance is needed with planning
Discharge Disposition- return to [facility] at [facility], likely no needs
[2023-07-10 15:55] VITALS: BP 143/83
--- NOTE | 2023-07-10 16:26 | W.PN.NEPH.PH ---
Today's Communication / Plan
-
lasix 20mg IV x1
Assessment/Plan
-
Impression:
Euvolemic hyponatremia acute on chronic (119)
History of schizophrenia
History of anxiety
History of alcohol abuse
Hypertension
Dyslipidemia
Hypothyroidism
History of withdrawal seizures
Plan:
sodium relatively stable 128
hyperkalemia persists, ACEI onur, s/p Kiera
will give dose of lasix today
cont NaCl 1 gm BID
maintain FR
monitor BP on hydralzine
hold Aldactone at d/c too
-
-
Date of Service: July 10, 2023
CC / HPI / ROS
-
Chief Complaint:
hyponatremia
History of Present Illness:
Na down 128
BP stable
K up to 5.6, no change
says he does not drink more than 32 oz/day
Review of Systems:
no CP/SOB
Labs
-
Labs:
WBC 9.2 10^3/uL (4.8-10.8) 07/10/23 07:20
RBC 5.52 10^6/uL (4.70-6.10) 07/10/23 07:20
Hgb 16.1 g/dL (13.0-18.0) 07/10/23 07:20
Hct 47.6 % (39.0-52.0) 07/10/23 07:20
Plt Count 402 10^3/uL (130-400) H 07/10/23 07:20
Sodium 128 mmol/L (135-145) L 07/10/23 07:20
Potassium 5.6 mmol/L (3.5-5.1) H 07/10/23 07:20
Chloride 93 mmol/L (98-107) L 07/10/23 07:20
Carbon Dioxide 22 mmol/L (22-30) 07/10/23 07:20
BUN 19 mg/dl (9-20) 07/10/23 07:20
Creatinine 0.7 mg/dL (0.7-1.3) 07/10/23 07:20
eGFR > 60.00 07/10/23 07:20
Glucose 84 mg/dl (70-99) 07/10/23 07:20
Calcium 9.2 mg/dl (8.4-10.2) 07/10/23 07:20
Albumin 4.2 g/dl (3.5-5.0) 07/07/23 09:35
Physical Exam
-
Vital Signs:
Vital Signs
Temp Pulse Resp BP Pulse Ox
97.7 F 57 20 145/82 98
07/10/23 07:33 07/10/23 07:33 07/10/23 07:33 07/10/23 07:33 07/10/23 08:10
Cardiovascular:: Regular rate and rhythm
Respiratory:: Bilateral: CTA
Lung Excursion:: Normal
Abdomen:: Nontender and Soft
Extremity Edema:: None: Bilateral:
Hutchinson Catheter: No
[2023-07-10] MEDS: LASIX 20 MG IV (16:58)
[2023-07-10] MEDS: LOVENOX 40 MG SC (16:59)
[2023-07-10] MEDS: PLAVIX 75 MG PO (16:59)
[2023-07-10] MEDS: RISPERDAL 3 MG PO (20:14)
[2023-07-10] MEDS: LIPITOR 80 MG PO (20:14)
[2023-07-10 23:48] VITALS: BP 132/82
[2023-07-11] MEDS: SYNTHROID 25 MCG PO (06:05)
[2023-07-11 06:36] LABS: Blood Urea Nitrogen 22 mg/dl (9-20); Carbon Dioxide 22 mmol/L (22-30); Chloride 96 mmol/L (98-107); Estimated Creatinine Clearance 94 ml/min; Glucose 77 mg/dl (70-99); Potassium 4.9 mmol/L (3.5-5.1); Sodium 128 mmol/L (135-145); eGFR > 60.00
[2023-07-11 08:11] VITALS: BP 146/87
[2023-07-11] MEDS: TEGRETOL 200 MG PO (08:25)
[2023-07-11] MEDS: LOW STRENGTH ASPIRIN 81 MG PO (08:25)
[2023-07-11] MEDS: TOPROL XL 25 MG PO (08:25)
[2023-07-11] MEDS: SODIUM CHLORIDE 1 GRAM PO (08:25)
[2023-07-11] MEDS: APRESOLINE 25 MG PO (08:25)
[2023-07-11] MEDS: NICODERM TRANSDERMAL 14 MG TRANSDERM (08:26)
[2023-07-11] MEDS: NORVASC 10 MG PO (08:26)
[2023-07-11] MEDS: DEPAKOTE (12 HR RELEASE) 500 MG PO (08:26)
--- NOTE | 2023-07-11 10:25 | W.PN.HOSP.TC ---
Addendum entered and electronically signed by Hector Juárez MD 07/11/23 13:59:
Addendum
Patient wanted to go home.
Discussed with ironworker wire fence erector, okay to go home and to do blood work in 2 to 3 days
Charge instructions discussed with patient and his mother at the bedside
Discussed with counter caser
Total discharge time spent to see the patient, examine the patient on the floor, review data and lab results, discuss discharge plan with patient, nursing staff around 65 minutes.
Original Note:
Today's Communication/Plan
-
possible dc today or tomorrow
Assessment / Plan
Assessment / Plan
Physical Exam
General: AOx3, No Distress and Nontoxic
HEENT: PERRL, EOMI, Anicteric, Conjunctivae Clear,
Respiratory: Clear
Cardiac: S1/S2
Abdomen: Soft, Nontender, Nondistended,
Rectal: No rectal bleeding
Genito-urinary: No Costovertebral Tender
Musculoskeletal: No Clubbing, No Cyanosis and No Edema
Skin: No Rash
Neuro: Nonfocal/Grossly Intact and Strength, AAOX3.
Psych: Calm, no agitation.
pt is a 47 year old male
# asymptomatic hyponatremia/ acute on chronic
He seems back to baseline
likely from polydipsia/psych medication--
Na at 128, stable. I think we will have to take some degree of hyponatremia when it is not critically low.
No confusion noted
s/p 3% hypertonic saline--1200ml fluid restriction--holding Aldactone--random cortisol appropriate--salt tabs
Appreciate nephrology help
# Hyperkalemia, resolved.
Stopped the combination of Aldactone and Lisinopril. He might benefit from going back on lisinopril at one point with monitoring of basic metabolic panel including potassium level.
Given Lokelma
# Essential hypertension-- cont Norvasc, metoprolol
Substitute with hydralazine.
We stopped Lisinopril and Aldactone
#Coronary artery disease--Status post cardiac stent--Aspirin continued--Plavix continued
#History of schizophrenia
History of anxiety
History of alcohol abuse
Carbamazepine continued--Depakote continue--Risperidone continued-
WIll have to c/w psych med to continue control his psych illness.
#Hypothyroidism--Levothyroxine continued--TSH WNL
#DVT prophylaxis--Lovenox subcu
# CODE STATUS- Full code
Total time spent to see the patient, examine the patient on the floor, review data and lab results, discuss treatment plan with patient, sister, nursing staff around 57 minutes.
Anticipated Discharge: Within 24 hours
Subjective/Interval History
-
Date of Service: July 11, 2023
No chest pain
No sob
No headache
Objective Data
-
Labs:
Laboratory Results
07/11/23
05:21
Sodium 128 L
Potassium 4.9
Chloride 96 L
Carbon Dioxide 22
BUN 22 H
Creatinine 0.8
Glucose 77
Calcium 9.0
Vital Signs:
Vital Signs
Temp Pulse Resp BP Pulse Ox
97.8 F 60 18 146/87 98
07/11/23 08:11 07/11/23 08:25 07/11/23 08:11 07/11/23 08:25 07/11/23 08:11
I&O
07/10/23 07/11/23 07/12/23
06:59 06:59 06:59
Intake Total 960 / 960 1020 / 1020
Balance 960 / 960 1020 / 1020
[2023-07-11 10:56] VITALS: BP 132/73; O2SAT 96
[2023-07-11 10:59] VITALS: BP 132/73; PULSE 62; O2SAT 96
--- NOTE | 2023-07-11 13:42 | CM ---
Addendum entered by Sharmaine Victor 07/11/23 15:20:
Per [facility], pt with no skilled need
Pt and attending made aware by [facility] liaison
Call with Ann/CHEMO coordinator
Requested pt be assessed for case management and higher level services at per mother's request
Discharge Disposition-home, no needs
Original Note:
CM reviewed pt with Dr Juárez- ready for dc today
Pt will need [facility] per attending
Bedside meeting with pt and his mother
In agreement with plan for [facility]
Provider choices discussed and referral made to [facility] per their request
IMM verbally reviewed- copy provided
Transport resources provided to pt per attending request
Call with Ann/[facility] residential appliance repair technician with update
Requested LV also assist with setting up transport to outpt appts as needed
Discharge Disposition- home with [facility]- mother transport
--- NOTE | 2023-07-11 13:48 | W.DCSUMMARY ---
Discharge Summary
Discharge Data
Date of Admission: 07/07/23
Date of Discharge: 07/11/23
-
Pending Results: No
Hospital Course
47 years old male presented with abnormal blood work. Patient had an outpatient blood work that showed low sodium and was sent to the hospital. In the emergency room, he had sodium around 119. Nephrology was consulted. Urine osmolality of 328
consistent with some component of excess antidiuretic hormone. He was diagnosed with euvolemic hyponatremia which was driven by the presence of his antipsychotic/antiseizure medication with underlying syndrome of inappropriate antidiuretic hormone
mediated by his medications. Patient was placed on fluid restriction, he was given hypertonic saline. Chest radiography did not show abnormality. He was also found to have hyperkalemia. Patient was started recently on combination of Aldactone
and lisinopril. He was given Lokelma and furosemide. Potassium came down slowly to normal level. He was given hydralazine to control his blood pressure. His sodium started to go up slowly. His sodium stabilized around 128-129 which was his
baseline. He was maintained on sodium chloride tablet with the fluid restriction. Random cortisol level and thyroid-stimulating hormone level were normal. Patient remained hemodynamically stable. His mentation was back to normal and he did not
have confusion. Patient was evaluated by physical therapy and did not have skilled needs. Patient was discharged in a stable condition. Patient will follow-up with nephrology in the office and was given a prescription to do blood work in a few
days after discharge. Instructions were discussed with the patient and his mother at bedside. beef cattle farm manager was involved in discharge planning.
Discharge Plan
-
Patient Disposition: Home (Routine Discharge)
Discharge Diagnosis/Procedures: Asymptomatic hyponatremia/hyperkalemia, essential hypertension, coronary artery disease, history of schizophrenia, hypothyroidism
Condition: Good
Diet: As tolerated, Regular and Restrict fluids to 48 oz
Activity: As tolerated
Driving Restrictions: As prior to admission
Bathing Restrictions: None
Blood Work: mag [facility] Wednesday 07/12-, results to Dr. Zuluaga, nephrology
Referrals:
Reinaldo Beyer MD [Family Provider] - in less than 1 week
Vishnu Zuluaga MD [Active] - in two to three weeks
Prescriptions:
New
hydralazine 25 mg Tablet
25 mg PO BID Qty: 60 0RF
sodium chloride 1,000 mg Tablet,Soluble
1,000 mg PO BID Qty: 60 0RF
acetaminophen 325 mg Tablet
650 mg PO Q4HPRN PRN (Reason: mild pain/DONALD/temp> 100.4F) Qty: 0 0RF
Continued
risperidone [Risperdal] 3 MG tablet
3 mg PO HS
levothyroxine 25 MCG tablet
25 mcg PO DAILY@0700
carbamazepine 200 MG tablet
200 mg PO BID
atorvastatin 80 mg tablet
80 mg PO HS
clopidogrel 75 mg tablet
75 mg PO QPM
divalproex 500 mg tablet,delayed release (DR/EC)
500 mg PO BID
aspirin 81 mg Tablet,Chewable
81 mg PO DAILY
metoprolol succinate 25 mg tablet extended release 24 hr
25 mg PO BID
amlodipine [Norvasc] 10 MG tablet
10 mg PO Daily
Discontinued
lisinopril 20 mg tablet
20 mg PO BID
spironolactone 25 mg tablet
25 mg PO DAILY
Discharge Orders:
Discharge Patient (As Directed); Ordered 07/11/23
Ordered By: Hector Juárez
Discharge Date and Time
Print Language: UKRAINIAN
--- NOTE | 2023-07-11 14:04 | W.PN.NEPH.PH ---
Today's Communication / Plan
-
ok to d/c
Assessment/Plan
-
Impression:
Euvolemic hyponatremia acute on chronic (119)
History of schizophrenia
History of anxiety
History of alcohol abuse
Hypertension
Dyslipidemia
Hypothyroidism
History of withdrawal seizures
Plan:
sodium relatively stable 128
hyperkalemia improved post LOkelma and lasix
cont to hold ACEI and Aldactone
cont NaCl 1 gm BID
maintain FR
monitor BP on hydralzine
BMP Monday
f/u Dr Bermudez
d/w pt and mother at bedside
-
-
Date of Service: July 11, 2023
CC / HPI / ROS
-
Chief Complaint:
hyponatremia
History of Present Illness:
Na stable 128
BP stable
K normal at 4.9
says he does not drink more than 32 oz/day
Review of Systems:
no CP/SOB
Labs
-
Labs:
WBC 9.2 10^3/uL (4.8-10.8) 07/10/23 07:20
RBC 5.52 10^6/uL (4.70-6.10) 07/10/23 07:20
Hgb 16.1 g/dL (13.0-18.0) 07/10/23 07:20
Hct 47.6 % (39.0-52.0) 07/10/23 07:20
Plt Count 402 10^3/uL (130-400) H 07/10/23 07:20
Sodium 128 mmol/L (135-145) L 07/11/23 05:21
Potassium 4.9 mmol/L (3.5-5.1) 07/11/23 05:21
Chloride 96 mmol/L (98-107) L 07/11/23 05:21
Carbon Dioxide 22 mmol/L (22-30) 07/11/23 05:21
BUN 22 mg/dl (9-20) H 07/11/23 05:21
Creatinine 0.8 mg/dL (0.7-1.3) 07/11/23 05:21
eGFR > 60.00 07/11/23 05:21
Glucose 77 mg/dl (70-99) 07/11/23 05:21
Calcium 9.0 mg/dl (8.4-10.2) 07/11/23 05:21
Albumin 4.2 g/dl (3.5-5.0) 07/07/23 09:35
Physical Exam
-
Vital Signs:
Vital Signs
Temp Pulse Resp BP Pulse Ox
97.8 F 60 18 146/87 98
07/11/23 08:11 07/11/23 08:25 07/11/23 08:11 07/11/23 08:25 07/11/23 08:11
Cardiovascular:: Regular rate and rhythm
Respiratory:: Bilateral: CTA
Lung Excursion:: Normal
Abdomen:: Nontender and Soft
Extremity Edema:: None: Bilateral:
Hutchinson Catheter: No
--- NOTE | 2023-07-11 15:20 | VNURNOTE ---
Home Health Liaison met with patient and mother at 1500 to discuss [facility] further.
Patient does not have a skilled need for [facility]. E
Liaison explained this to patient and his mother who are in agreement to follow up with PCP including labwork needed.
CM updated.
faculty support coordinator Ann from [facility] was updated with above.
Dr Juárez updated with plan.
--- NOTE | 2023-07-13 09:41 | CM ---
TC from [facility], patient was current with them.
[facility] sent referral in error.
[facility] referral cancelled, Liaison updated.
Referral sent via [facility] to [facility] and d/c packet faxed.
Accepted by [facility].
== END 2023-07-11 15:28 | disposition home or self-care (01) | DRG 641 ==
LOC: 4 EAST ACU 13:42
PROVIDERS: Emergency Medicine; Physician Assistant; Registered Nurse; ADMITTING PHYSICIAN Internal Medicine; ATTENDING PHYSICIAN Internal Medicine; EMERGENCY PHYSICIAN Emergency Medicine; FAMILY PHYSICIAN Family Medicine; OTHER PHYSICIAN Specialist
DX: E87.1 Hypo-osmolality and hyponatremia (principal); E22.2 Syndrome of inappropriate secretion of antidiuretic hormone; F17.210 Nicotine dependence, cigarettes, uncomplicated; E87.5 Hyperkalemia; I10 Essential (primary) hypertension; I25.10 Atherosclerotic heart disease of native coronary artery without angina pectoris; E03.9 Hypothyroidism, unspecified; Z79.82 Long term (current) use of aspirin; F20.9 Schizophrenia, unspecified
CPT/HCPCS: 71046; 80048; 80051; 80053; 81003; 81015; 82077; 82533; 83930; 83935; 84300; 84443; 85025; 85027; 96360; 97161; 97165; 99291; 99406

== ENCOUNTER 2023-07-21 18:41 | Inpatient (IN) | payer MEDICARE, SELFPAY ==
[2023-07-21] VITALS (7 sets, daily range): BP systolic 149–167; BP diastolic 81–107; BMI 26.1; BMI 22.6
[2023-07-21 16:53] LABS: % Basophils 1.4 % (0-2); % Eosinophils 2.6 % (0-6); % Immature Granulocytes 1.5 % (0-0.5); % Lymphocytes 19.2 % (20.5-51.1); % Monocytes 11.5 % (1.7-9.3); % Neutrophils 63.8 % (42.2-75.2); Absolute Basophils 0.2 10^3/uL (0-0.2); Absolute Eosinophils 0.3 10^3/uL (0-0.7); Absolute Immature Granulocytes 0.2 10^3/uL (0-0.05); Absolute Lymphocytes 2.1 10^3/uL (1.2-3.4); Absolute Monocytes 1.2 10^3/uL (0.1-0.6); Absolute Neutrophils 6.8 10^3/uL (1.4-6.5); Hematocrit 42.6 % (39.0-52.0); Hemoglobin 15.3 g/dL (13.0-18.0); Mean Corp Hgb Conc. 35.9 g/dL (33.0-37.0); Mean Corpuscular Hgb 29.4 pg (27.0-31.0); Mean Corpuscular Volume 81.8 fL (80.0-94.0); Mean Platelet Volume 9.1 fL (7.4-10.4); Nucleated Red Blood Cells % 0 % (-); Platelet Count 401 10^3/uL (130-400); Red Blood Cell Count 5.21 10^6/uL (4.70-6.10); Red Cell Dist. Width 14.1 % (11.5-14.5); White Blood Cell Count 10.7 10^3/uL (4.8-10.8)
[2023-07-21 17:12] LABS: ALT (SGPT) 26 U/L (0-50); AST (SGOT) 25 U/L (17-59); Albumin 4.5 g/dl (3.5-5.0); Alkaline Phosphatase 70 U/L (38-126); Blood Urea Nitrogen < 2 mg/dl (9-20); Calcium 9.2 mg/dl (8.4-10.2); Carbon Dioxide 22 mmol/L (22-30); Chloride 83 mmol/L (98-107); Glucose 99 mg/dl (70-99); Potassium 4.8 mmol/L (3.5-5.1); Sodium 119 mmol/L (135-145); Total Bilirubin 0.4 mg/dl (0.2-1.3); Total Protein 6.8 g/dl (6.3-8.2); eGFR > 60.00
--- NOTE | 2023-07-21 17:52 | ED.GENMED ---
History of Present Illness
General
Chief Complaint: Abnormal Lab Value
Source: patient
Exam Limitations: none
Time Seen by Provider: 07/21/23 17:38
Travel History
Have you had any contact with someone who has COVID-19?: No
Do you have any symptoms of coronavirus? Fever > 100 degrees, chills, cough, shortness of breath, sore throat, loss of taste or smell, muscle aches, or headache?: No
History of Present Illness
History of Present Illness:
47-year-old male with a history of hyponatremia and schizophrenia that presents again with hyponatremia. Patient had repeat blood work yesterday. The patient was recently here and hospitalized for hyponatremia. The patient states this is the
third time it has happened to him. He is on antipsychotics. He denies any symptoms. He specifically denies palpitations or motor weakness. No numbness or tingling.
Past History
Past History
ED Past Medical History: HTN, Hypercholesterolemia, Psychiatric (schizophrenia, alcohol abuse) and Other (Hyponatremia)
Social History
Tobacco: Smoker
Alcohol: Chronic alcoholic
Personal: Single
Living: other (long-term)
Phy Exam
Physical Exam
Physical Exam:
CONSTITUTIONAL Patient alert and oriented to person, place and time. Well-appearing. Vital signs reviewed.
HEAD atraumatic, normocephalic.
EYES eyelids normal to inspection, Pupils equally round and reactive to light, Extraocular muscles intact, Conjunctiva normal, Sclera normal.
NECK normal range of motion, Trachea midline, no jugular venous distention.
RESPIRATORY CHEST No respiratory distress noted, Chest expansion equal, Bilateral breath sounds clear.
CARDIOVASCULAR regular rate and rhythm, Heart sounds normal.
ABDOMEN abdomen nontender, Bowel sounds normal. No distention.
BACK normal inspection, no obvious deformities
UPPER EXTREMITY range of motion normal, Motor strength normal, no cyanosis, no edema.
LOWER EXTREMITY range of motion normal, Motor strength normal, no cyanosis, no edema.
NEURO Speech normal, No focal motor deficits, Dariusz coma scale 15, Memory normal, Cranial Nerves intact to screening exam.
SKIN skin warm, dry, and normal in color.
Course
Orders/Labs/Results
Orders:
Orders
07/21/23 16:48
CMP [Comprehensive Metabolic Panel] Urgent
Complete Blood Count/With Diff Urgent
07/21/23 17:43
Urine Sodium Urgent
07/21/23 17:45
Urinalysis Reflex To Culture Urgent
07/21/23 17:46
Electrocardiogram (*1) Urgent
Reason for Study: QTc Monitoring
EKG- Treatment ONCE
07/21/23 18:29
Admit/Transfer Patient As Directed
Co-Sign Provider:
Level of Care: Inpatient admission
Assign to:: IMU- Intermediate Care
Physician / Group: Hospitalist
Diagnosis: Hyponatremia
Reason for Hospitalization: Hyponatremia
Expected length of stay greater than two midnights?: Yes
ELOS- Estimated Length of Stay in days: 3
I certify the patient meets the requirements for IP care: Yes
07/21/23 18:32
Code Status As Directed
Resuscitation Status: Full Code
07/22/23 06:00
Tegretol (Carbamazepine) IN AM
Abnormal Lab Results
07/21/23
16:48
Plt Count 401 H 10^3/uL
(130-400)
Abs Immat Gran (auto) 0.2 H 10^3/uL
(0-0.05)
Absolute Neuts (auto) 6.8 H 10^3/uL
(1.4-6.5)
Absolute Monos (auto) 1.2 H 10^3/uL
(0.1-0.6)
Immature Gran % 1.5 H %
(0-0.5)
Lymphocytes % 19.2 L %
(20.5-51.1)
Monocytes % 11.5 H %
(1.7-9.3)
Sodium 119 L* mmol/L
(135-145)
Chloride 83 L mmol/L
(98-107)
BUN < 2 L mg/dl
(9-20)
Creatinine 0.5 L mg/dL
(0.7-1.3)
07/21/23 16:48
07/21/23 16:48
Vital Signs
Initial and Last Documented VS:
Initial Vital Signs
Temp Pulse Resp BP Pulse Ox
97.8 F 67 18 160/85 99
07/21/23 16:41 07/21/23 16:41 07/21/23 16:41 07/21/23 16:41 07/21/23 16:41
Last Documented Vital Signs
Temp Pulse Resp BP Pulse Ox
97.8 F 67 18 160/85 99
07/21/23 16:41 07/21/23 16:41 07/21/23 16:41 07/21/23 16:41 07/21/23 16:41
MDM/Problems Addressed
MDM/Problems Addressed:
Hyponatremia
*Pulse Oximetry
Patient hypoxic: no
*EKG
Interpreted by ED Provider?: Yes
Interpretation: abnormal
Rate: normal
Rhythm: sinus
[place]: normal axis
QRS Pattern: poor R-wave progression
Ischemia: T-wave inversion
*Banana Expert Interpretation
Rate: normal
Interpretation: normal
Rhythm: sinus
*Critical Care Note
Total Time (30-74mins, 75-104mins- exclusive of procedures): 45 minutes
Data Reviewed
Review of Other/Old Records Reveals: Discharge Summary (July 2023 discharge summary reviewed)
Source: patient
Prescriptions/Medications Considered But Not Given:
Considered IV fluids but he has been diagnosed with euvolemic hyponatremia in the past. Treat with 3% saline
Patient Management
Discussion with other providers: Hospitalist
Escalation/DeEscalation of care consider admission/obs:
Treat with 3% saline. Admit
ED Attending Note
-
Portions of this chart may have been created with voice recognition software.� Occasional wrong word or��sound alike� substitutions may have occurred due to the inherent limitations of voice recognition software.
Discharge Plan
Departure
Patient Disposition: Admit
Date of Disposition: 07/21/23
Time of Disposition: 17:53
Admit to: IMU
Presentation/result/management discussed w/ accepting MD/DO: Hospitalist
Discharge Problem:
Severe hyponatremia
Interventions
Interventions:
*Risk Screen - Suicide Last Done: 07/21/23 18:07
*General Assessment Last Done: 07/21/23 18:07
*Neglect/Abuse Screening Last Done: 07/21/23 18:07
ED- Fall Risk Assessment Last Done: 07/21/23 18:10
*ED COVID-19 Vaccine History Last Done: 07/21/23 18:07
--- NOTE | 2023-07-21 18:00 | HPS.HSE ---
Family Physician
-
Family Physician:
Chief Complaint
-
Abnormal labs
History of Present Illness
47-year-old male with schizophrenia and hyponatremia had repeat lab work yesterday. He was hospitalized for hyponatremia. He was sent for abnormal labs. Patient does not have any symptoms. It is not clear whether he follows restriction.
Medical History
Past Medical History
Past Medical History: Reports Other
Additional Past Medical History:
Hypertension, hyperlipidemia, schizophrenia, history of alcohol abuse, polycythemia
Past Surgical History: Reports Other
Additional Past Surgical History:
History of bone marrow biopsy
Social History
Tobacco: Smoker
Alcohol: None
Drug: None
Living: Other (Lives in a senior living)
Family History
Family History: Not pertinent
Allergies / Home Medications
Allergies reflects when Allergies were last updated in [facility].
Home Medications with original date entered in [facility]
Allergy/Medication List:
Allergies
Allergy/AdvReac Type Severity Reaction Status Date / Time
codeine Allergy stiff Verified 08/22/20 10:37
muscles
Home Medications
carbamazepine 200 mg tablet 200 mg PO BID Neurological Condition 08/22/20
levothyroxine 25 mcg tablet 25 mcg PO DAILY@0700 Thyroid 08/22/20
risperidone 3 mg tablet (Risperdal) 3 mg PO HS Neurological Condition 08/22/20
amlodipine 10 mg tablet (Norvasc) 10 mg PO DAILY Blood Pressure 07/07/23
aspirin 81 mg chewable tablet 81 mg PO DAILY Blood Clot Prevention/Tx 07/07/23
atorvastatin 80 mg tablet 80 mg PO HS High Cholesterol 07/07/23
clopidogrel 75 mg tablet 75 mg PO QPM Blood Clot Prevention/Tx 07/07/23
divalproex 500 mg tablet,delayed release 500 mg PO BID seizure and psych 07/07/23
metoprolol succinate 25 mg tablet,extended release 24 hr 25 mg PO BID Heart Condition 07/07/23
acetaminophen 325 mg tablet 650 mg (2 x 325 mg) PO Q4HPRN PRN mild pain/DONALD/temp> 100.4F #0 tabs 07/09/23
hydralazine 25 mg tablet 25 mg PO BID #60 tabs 07/09/23
sodium chloride 1,000 mg soluble tablet 1,000 mg PO BID #60 tabs 07/09/23
lisinopril 20 mg tablet 20 mg PO BID 07/21/23
spironolactone 25 mg tablet 25 mg PO DAILY 07/21/23
Review of Systems
-
A 12 point ROS was completed and negative except as noted: Yes
Constitutional: Denies Weight Loss or Fatigue
Cardiac: Denies Chest Pain
Abdomen/GI: Denies Abdominal Pain
Physical Exam
Vital Signs
Vital Signs
Temp Pulse Resp BP Pulse Ox
97.8 F 67 18 160/85 99
07/21/23 16:41 07/21/23 16:41 07/21/23 16:41 07/21/23 16:41 07/21/23 16:41
Physical Exam
General: Comfortable and Conversant
Respiratory: Clear
Cardiac: S1/S2 and Regular Rhythm
GI: Soft and Normal Bowel Sounds
Neuro: AO x 3 and Nonfocal/grossly intact
Laboratory Results
-
07/21/23 16:48
07/21/23 16:48
Laboratory Results
Total Bilirubin 0.4 mg/dl (0.2-1.3) 07/21/23 16:48
AST 25 U/L (17-59) 07/21/23 16:48
ALT 26 U/L (0-50) 07/21/23 16:48
Alkaline Phosphatase 70 U/L (38-126) 07/21/23 16:48
Data Reviewed
-
Medical Tests (Nuc Med, Echo, EKG etc): Image Personally Visualized and interpreted (EKG-sinus rhythm ST-T changes in the anterolateral and inferior leads)
Impression/Plan
-
IMPRESSION/PLAN:
# Hyponatremia admit to stepdown
Recent admission here for same
3% saline
Follow serial BMPs
Patient is not symptomatic at present
Slow correction of sodium
Nephrology evaluation
Fluid restriction
Suspect patient is noncompliant with fluid restriction
Check serum and urine osmolality serum sodium
CXR and MRI brain in am
Psychiatric medicines may be contributing
Patient was on salt tablets as outpatient-continue that
Consider placing patient on Lasix at discharge
# History of coronary disease with history of stent-continue aspirin and Plavix, metoprolol, lisinopril along with statin
ST changes in the EKG
Check troponin
# Pbxgghtvrbcl-afsrgxifk-kfgngwojk
continue metoprolol, lisinopril, hydralazine, Norvasc, spironolactone
# Hyperlipidemia-continue statin
# Hypothyroidism-continue Synthroid recent TSH was normal
# Schizophrenia history of anxiety
Continue Depakote, risperidone, carbamazepine
# Polycythemia-patient had bone marrow biopsy-details unclear
# Thrombocytosis
# History of alcohol abuse-lives in a senior living now does not use any alcohol
# Active smoker-cessation counseling
# DVT prophylaxis-Lovenox
# Full code
Discussed with ER attending and staff
[2023-07-21] MEDS: SODIUM CHLORIDE 3% 250 IV (19:42)
[2023-07-21 19:55] LABS: Urine Albumin Negative (Neg - Trace); Urine Bilirubin Negative (Negative); Urine Character Clear (Clear); Urine Color Straw; Urine Glucose Negative (Negative); Urine Ketone Negative (Negative); Urine Leukocyte Negative (Negative); Urine Nitrite Negative (Negative); Urine Occult Blood Negative (Negative); Urine Specific Gravity 1.005 (<1.030); Urine Urobilinogen Negative (Neg - 1+)
[2023-07-21 20:06] LABS: Urine Sodium 23 mmol/L (30-90)
[2023-07-21 21:27] LABS: Blood Urea Nitrogen < 2 mg/dl (9-20); Calcium 9.1 mg/dl (8.4-10.2); Carbon Dioxide 24 mmol/L (22-30); Chloride 86 mmol/L (98-107); Estimated Creatinine Clearance 125 ml/min; Glucose 103 mg/dl (70-99); Potassium 4.2 mmol/L (3.5-5.1); Sodium 120 mmol/L (135-145); eGFR > 60.00
[2023-07-21 21:33] LABS: Troponin I 0.038 ng/ml
[2023-07-21] MEDS: APRESOLINE 25 MG PO (21:42)
[2023-07-21] MEDS: SODIUM CHLORIDE 1 GRAM PO (21:43)
[2023-07-21] MEDS: DEPAKOTE (12 HR RELEASE) 500 MG PO (21:43)
[2023-07-21] MEDS: TEGRETOL 200 MG PO (21:44)
[2023-07-21] MEDS: LIPITOR 80 MG PO (21:44)
[2023-07-21] MEDS: TOPROL XL 25 MG PO (21:44)
[2023-07-21] MEDS: RISPERDAL 3 MG PO (21:45)
[2023-07-21] MEDS: ZESTRIL 20 MG PO (21:47)
--- NOTE | 2023-07-21 21:54 | TRANSFER ---
Pt received from the ER at 1999. He walked fron the stretcher to the bed without difficulty. He arrived without complaints with 3% NSS infusing via L arm IV. Gave pt a boxed lunch, had good appetite. Monitor is sinus rhythm 60's. Call reyes in
reach.
[2023-07-21] MEDS: NICODERM TRANSDERMAL 14 MG TRANSDERM (22:41)
[2023-07-22] VITALS (14 sets, daily range): BP systolic 105–140; BP diastolic 59–92; BMI 22.9
[2023-07-22 02:54] LABS: Blood Urea Nitrogen 5 mg/dl (9-20); Calcium 8.4 mg/dl (8.4-10.2); Carbon Dioxide 19 mmol/L (22-30); Chloride 96 mmol/L (98-107); Estimated Creatinine Clearance 125 ml/min; Glucose 105 mg/dl (70-99); Potassium 4.6 mmol/L (3.5-5.1); Sodium 119 mmol/L (135-145); eGFR > 60.00
[2023-07-22 03:12] LABS: Troponin I 0.039 ng/ml
--- NOTE | 2023-07-22 04:09 | PTCARENOTE ---
Sodium level from 0208 reported as 119. Reported to IRON GUARDRAIL INSTALLER. Pt sleeping 3% sodium IV completed.
[2023-07-22 05:28] LABS: Hematocrit 42.3 % (39.0-52.0); Hemoglobin 14.8 g/dL (13.0-18.0); Mean Corpuscular Hgb 29.4 pg (27.0-31.0); Mean Corpuscular Volume 84.1 fL (80.0-94.0); Mean Platelet Volume 9.6 fL (7.4-10.4); Platelet Count 328 10^3/uL (130-400); Red Blood Cell Count 5.03 10^6/uL (4.70-6.10); Red Cell Dist. Width 14.1 % (11.5-14.5); White Blood Cell Count 11.1 10^3/uL (4.8-10.8)
[2023-07-22 05:51] LABS: Magnesium 2.1 mg/dl (1.6-2.3)
[2023-07-22 05:53] LABS: Blood Urea Nitrogen 5 mg/dl (9-20); Calcium 8.7 mg/dl (8.4-10.2); Carbon Dioxide 21 mmol/L (22-30); Chloride 92 mmol/L (98-107); Estimated Creatinine Clearance 125 ml/min; Glucose 74 mg/dl (70-99); Potassium 4.7 mmol/L (3.5-5.1); Sodium 122 mmol/L (135-145); Tegretol (Carbamazepine) 10.2 ug/ml (4-12); eGFR > 60.00
[2023-07-22] MEDS: SYNTHROID 25 MCG PO (06:19)
--- NOTE | 2023-07-22 07:46 | PTCARENOTE ---
At times through the night pt noted to have periods of apnea. O2 sat did not drop with apnea. Encouraged pt to lay on his side to help with his breathing and he did but it did not change these episodes. O2 sat has been 96-99% on room air. He has
sinus bradycardia to 45 beats per minute at times. BP stable.
[2023-07-22] MEDS: LOW STRENGTH ASPIRIN 81 MG PO (08:56)
[2023-07-22] MEDS: ZESTRIL 20 MG PO ×2 (08:56→19:41)
[2023-07-22] MEDS: ALDACTONE 25 MG PO (08:57)
[2023-07-22] MEDS: TOPROL XL 25 MG PO (08:57)
[2023-07-22] MEDS: SODIUM CHLORIDE 1 GRAM PO ×2 (08:57→19:42)
[2023-07-22] MEDS: APRESOLINE 25 MG PO ×2 (08:57→19:41)
[2023-07-22] MEDS: DEPAKOTE (12 HR RELEASE) 500 MG PO ×2 (08:58→19:42)
[2023-07-22] MEDS: TEGRETOL 200 MG PO ×2 (08:58→19:42)
[2023-07-22] MEDS: NORVASC 10 MG PO (08:58)
[2023-07-22] MEDS: NICODERM TRANSDERMAL 14 MG TRANSDERM (08:58)
[2023-07-22 09:07] LABS: Troponin I 0.031 ng/ml
--- NOTE | 2023-07-22 10:51 | W.PN.HOSP.TC ---
Today's Communication/Plan
-
see bold
Assessment / Plan
Assessment / Plan
Gen: NAD, Awake and alert
Eyes: EOMI, PERRLA, no scleral icterus.
Neck: supple.
CV: RRR, +S1/S2, no m/r/g.
Resp: CTAB, no rales, wheezes, or rhonchi.
Abd: +BS, soft, NT, ND
Skin: No rashes.
Neuro: CN 2-12 intact, non-focal.
Psych: slightly flat affect.
Hyponatremia:
-c/s renal
-suspect pt noncompliant with FR, cont FR 1200cc/day
-may need to stop aldactone
-s/p 3% NS without change in Na
-Psychiatric medicines may be contributing
-cont SUPERINTENDENT SANITATION NaCl tabs
CAD with h/o stent:
-ECG (read by me): NSR @ 60, nl axis/intervals, TWi V2-V4, I, aVL
-Trops noted, cont to trend
-recheck ECG now and in AM
-check echo 4/24AM
-cont ASA/Plavix/BB/statin
Other problems:
Essential Hypertension: continue metoprolol/lisinopril/hydralazine/Norvasc/spironolactone
Hyperlipidemia: continue statin
Hypothyroidism: continue Synthroid
Schizophrenia: with anxiety, cont Depakote/risperidone/carbamazepine
h/o Polycythemia with h/o bone marrow biopsy (details unclear)
h/o alcohol abuse
Tobacco abuse disorder: Encourage smoking cessation
FULL/Lovenox
Total time spent on today's encounter was 50 minutes which included time spent in counseling the patient/family regarding diagnosis and treatment plan as listed above, goals of care, and symptom management. Case was discussed with nursing staff,
specialists, and care coordinators/case management. All labs and imaging personally reviewed by me. Remainder the time spent in detailed review of previous records, lab data, imaging, and other medical provider documentation.
Anticipated Discharge: > 48 hours
Subjective/Interval History
-
Date of Service: July 22, 2023
Patient denies chest pain, shortness of breath. No acute complaints.
Objective Data
-
Labs:
Laboratory Results
07/22/23 07/22/23 07/22/23
02:08 04:57 08:27
WBC 11.1 H
Hgb 14.8
Hct 42.3
Plt Count 328
Sodium 119 L* 122 L Pending
Potassium 4.6 4.7 Pending
Chloride 96 L 92 L Pending
Carbon Dioxide 19 L 21 L Pending
BUN 5 L 5 L Pending
Creatinine 0.5 L 0.5 L Pending
Glucose 105 H 74 Pending
Calcium 8.4 8.7 Pending
Vital Signs:
Vital Signs
Temp Pulse Resp BP Pulse Ox
97.7 F 62 19 128/89 96
07/22/23 07:30 07/22/23 10:00 07/22/23 10:00 07/22/23 10:00 07/22/23 10:00
I&O
07/21/23 07/22/23 07/23/23
06:59 06:59 06:59
Intake Total 240 / 240
Balance 240 / 240
[2023-07-22 10:52] LABS: Blood Urea Nitrogen 5 mg/dl (9-20); Calcium 8.8 mg/dl (8.4-10.2); Carbon Dioxide 22 mmol/L (22-30); Chloride 91 mmol/L (98-107); Estimated Creatinine Clearance 125 ml/min; Glucose 78 mg/dl (70-99); Potassium 5.4 mmol/L (3.5-5.1); Sodium 122 mmol/L (135-145); eGFR > 60.00
[2023-07-22 11:05] LABS: Osmolality Urine 274 mOsm/kg (300-900)
--- NOTE | 2023-07-22 15:09 | W.CON.NEPH ---
Consultation
-
Date/Time Consultation Requested: 07/22/2023 10:56AM
Date/Time Consultation Performed: 07/22/2023 3:10PM
Requesting Provider: Jordi Holcomb
Performing Provider: Joleen Bermudez
Reason for Consultation: hyponatremia
Medical History
-
Chief Complaint: hyponatremia
History of Present Illness:
Mr. Mathew is a 47YOM with PMH of HTN, DLD, CAD (s/p stent), hypothyroidism, schizophrenia, polycythemia, h/o alcohol abuse, smoker who presents to the hospital after outpatient labs showed a Na of 119.
Patient has a long history of hyponatremia with frequent admissions over the past few months. I obtained outpatient labs to check Na after hospitalization at [facility] and it returned at 119 when I instructed patient to present to the ED. Patient
has been managed with NaCl tabs without improvement. Unfortunately, the patient has a tough time managing his fluid restriction. He loves to drink soda. The patient is also on a multitude of psychiatric medications which he does not want changed at
this time because htey are working well for him
Past Medical History
HTN, DLD, CAD (s/p stent), hypothyroidism, schizophrenia, polycythemia, h/o alcohol abuse, smoker
Past Surgical History: Other (bone marrow biopsy)
Social History
Tobacco: Smoker
Alcohol: Former
Drug: None
Living: Other (nursing home)
Family History
Family History: Not Pertinent
Allergies / Home Medications
Allergy/AdvReac Type Severity Reaction Status Date / Time
codeine Allergy stiff Verified 08/22/20 10:37
muscles
�Medication �Instructions �Recorded �Confirmed �Type
carbamazepine 200 mg tablet 200 mg PO BID Neurological 08/22/20 07/21/23 History
Condition
levothyroxine 25 mcg tablet 25 mcg PO DAILY@0700 Thyroid 08/22/20 07/21/23 History
risperidone 3 mg tablet (Risperdal) 3 mg PO HS Neurological Condition 08/22/20 07/21/23 History
amlodipine 10 mg tablet (Norvasc) 10 mg PO DAILY Blood Pressure 07/07/23 07/21/23 History
aspirin 81 mg chewable tablet 81 mg PO DAILY Blood Clot 07/07/23 07/21/23 History
Prevention/Tx
atorvastatin 80 mg tablet 80 mg PO HS High Cholesterol 07/07/23 07/21/23 History
clopidogrel 75 mg tablet 75 mg PO QPM Blood Clot 07/07/23 07/21/23 History
Prevention/Tx
divalproex 500 mg tablet,delayed 500 mg PO BID seizure and psych 07/07/23 07/21/23 History
release
metoprolol succinate 25 mg 25 mg PO BID Heart Condition 07/07/23 07/21/23 History
tablet,extended release 24 hr
acetaminophen 325 mg tablet 650 mg (2 x 325 mg) PO Q4HPRN PRN 07/09/23 07/21/23 Rx
mild pain/DONALD/temp> 100.4F #0 tabs
hydralazine 25 mg tablet 25 mg PO BID #60 tabs 07/09/23 07/21/23 Rx
sodium chloride 1,000 mg soluble 1,000 mg PO BID #60 tabs 07/09/23 07/21/23 Rx
tablet
lisinopril 20 mg tablet 20 mg PO BID Heart 07/21/23 07/21/23 History
Disease/Condition
spironolactone 25 mg tablet 25 mg PO DAILY 07/21/23 07/21/23 History
Review of Systems
-
History Source: Patient
All other systems: Negative unless noted
Physical Exam
Vital Signs
Vital Signs
Temp Pulse Resp BP Pulse Ox
98.2 F 62 19 128/89 96
07/22/23 11:20 07/22/23 10:00 07/22/23 10:00 07/22/23 10:00 07/22/23 10:00
Lab Results
WBC 11.1 10^3/uL (4.8-10.8) H 07/22/23 04:57
RBC 5.03 10^6/uL (4.70-6.10) 07/22/23 04:57
Hgb 14.8 g/dL (13.0-18.0) 07/22/23 04:57
Hct 42.3 % (39.0-52.0) 07/22/23 04:57
Plt Count 328 10^3/uL (130-400) 07/22/23 04:57
Sodium 122 mmol/L (135-145) L 07/22/23 08:27
Potassium 5.4 mmol/L (3.5-5.1) H 07/22/23 08:27
Chloride 91 mmol/L (98-107) L 07/22/23 08:27
Carbon Dioxide 22 mmol/L (22-30) 07/22/23 08:27
BUN 5 mg/dl (9-20) L 07/22/23 08:27
Creatinine 0.6 mg/dL (0.7-1.3) L 07/22/23 08:27
eGFR > 60.00 07/22/23 08:27
Glucose 78 mg/dl (70-99) 07/22/23 08:27
Calcium 8.8 mg/dl (8.4-10.2) 07/22/23 08:27
Albumin 4.5 g/dl (3.5-5.0) 07/21/23 16:48
Physical Exam
General: AOx3
HEENT: PERRL, EOMI, Anicteric, Conjunctivae Clear, Ear/Nose Intact and Hearing Normal
Respiratory: Clear
Cardiac: S1/S2, Regular Rate/Rhythm and No Edema
Breast: N/A
Abdomen: Soft, Nontender, Nondistended, Normal Bowel Sounds and No Hepatosplenomegaly
Rectal: Deferred by Provider
Genito-urinary: Clear Urine
Musculoskeletal: No Clubbing, No Cyanosis and No Edema
Skin: No Rash
Neuro: Nonfocal/Grossly Intact
Hematologic/Lymphatic: No Cervical Lymphadenopathy
Psych: Mood/afflect pleasant and Appropriate
Assessment/Plan
-
Assessment:
Hyponatremia to 119
CAD s/p stent
HTN (on metop, lisinopril, hydralazine, norvasc, spironolactone)
DLD
Hypothyroidism (last TSH wnl)
Schizophrenia
alcohol abuse (no longer using)
active smoker
Plan:
- Na from 119 --> 122 with 3% saline
- repeat BMP now.
- If Na 123 or less. reinitiate 3% saline at 30cc/hr
- If Na 124 or higher, let the patientn autocorrect
- BMP q6h, Uosm tomorrow AM
- urine studies consistent with ?low flow state vs. pre-renal but hard to discern as patient did recieve 3% prior to results
- if Na >125 by tomorrow AM, plan for lasix + salt tabs + FR
- consider echocardiogram
Data Reviewed
-
Radiology: Image Personally Visualized and interpreted (wnl)
Labs: Labs Reviewed by me, Discussed with Physician and Discussed with Patient
Old Records: Reviewed
[2023-07-22 15:57] LABS: Blood Urea Nitrogen 9 mg/dl (9-20); Calcium 8.7 mg/dl (8.4-10.2); Carbon Dioxide 21 mmol/L (22-30); Chloride 95 mmol/L (98-107); Estimated Creatinine Clearance 125 ml/min; Glucose 99 mg/dl (70-99); Potassium 4.6 mmol/L (3.5-5.1); Sodium 123 mmol/L (135-145); eGFR > 60.00
[2023-07-22] MEDS: PLAVIX 75 MG PO (17:53)
[2023-07-22] MEDS: LOVENOX 40 MG SC (17:53)
[2023-07-22] MEDS: TOPROL XL PO (19:41)
[2023-07-22] MEDS: RISPERDAL 3 MG PO (19:42)
[2023-07-22] MEDS: LIPITOR 80 MG PO (19:42)
[2023-07-22 21:03] LABS: Blood Urea Nitrogen 14 mg/dl (9-20); Calcium 8.8 mg/dl (8.4-10.2); Carbon Dioxide 21 mmol/L (22-30); Chloride 95 mmol/L (98-107); Estimated Creatinine Clearance 125 ml/min; Glucose 95 mg/dl (70-99); Potassium 5.1 mmol/L (3.5-5.1); Sodium 122 mmol/L (135-145); eGFR > 60.00
--- NOTE | 2023-07-22 22:36 | W.PN.UPDATE ---
Update Note
Progress Note Update
Patient's Na down to 122, 3% NaCl ordered per nephrology recommendation.
--- NOTE | 2023-07-22 22:37 | PTCARENOTE ---
Patients current na 122. Per nephrology note patient is to receive 3% if 123 or lower. on call provider made aware and placed order.
[2023-07-22] MEDS: SODIUM CHLORIDE 3% 250 IV (22:50)
[2023-07-23] VITALS (12 sets, daily range): BP systolic 83–148; BP diastolic 55–86
[2023-07-23 03:51] LABS: Hematocrit 41.6 % (39.0-52.0); Hemoglobin 14.5 g/dL (13.0-18.0); Mean Corp Hgb Conc. 34.9 g/dL (33.0-37.0); Mean Corpuscular Hgb 29.1 pg (27.0-31.0); Mean Corpuscular Volume 83.4 fL (80.0-94.0); Mean Platelet Volume 9.4 fL (7.4-10.4); Platelet Count 337 10^3/uL (130-400); Red Blood Cell Count 4.99 10^6/uL (4.70-6.10); Red Cell Dist. Width 14.7 % (11.5-14.5); White Blood Cell Count 9.5 10^3/uL (4.8-10.8)
[2023-07-23 04:15] LABS: Blood Urea Nitrogen 12 mg/dl (9-20); Calcium 8.8 mg/dl (8.4-10.2); Carbon Dioxide 20 mmol/L (22-30); Chloride 99 mmol/L (98-107); Estimated Creatinine Clearance 125 ml/min; Glucose 81 mg/dl (70-99); Potassium 5.2 mmol/L (3.5-5.1); Sodium 126 mmol/L (135-145); eGFR > 60.00
[2023-07-23 04:17] LABS: Troponin I 0.031 ng/ml
[2023-07-23] MEDS: SYNTHROID 25 MCG PO (05:00)
[2023-07-23 06:18] LABS: Osmolality Urine 546 mOsm/kg (300-900)
--- NOTE | 2023-07-23 06:27 | PTCARENOTE ---
Patient with no urine output overnight. Bladder scanned for 400 and encouraged to use urinal without success. Straight cathed for 400 straw colored urine.
[2023-07-23] MEDS: TOPROL XL 25 MG PO ×2 (07:35→20:51)
[2023-07-23] MEDS: APRESOLINE 25 MG PO ×2 (07:35→20:50)
[2023-07-23] MEDS: DEPAKOTE (12 HR RELEASE) 500 MG PO ×2 (07:36→20:51)
[2023-07-23] MEDS: LOW STRENGTH ASPIRIN 81 MG PO (07:36)
[2023-07-23] MEDS: NORVASC 10 MG PO (07:36)
[2023-07-23] MEDS: ALDACTONE 25 MG PO (07:36)
[2023-07-23] MEDS: TEGRETOL 200 MG PO ×2 (07:36→20:52)
[2023-07-23] MEDS: ZESTRIL 20 MG PO ×2 (07:36→20:51)
[2023-07-23] MEDS: SODIUM CHLORIDE 1 GRAM PO ×2 (07:36→20:50)
[2023-07-23] MEDS: NICODERM TRANSDERMAL 14 MG TRANSDERM (07:36)
--- NOTE | 2023-07-23 10:05 | W.PN.HOSP.TC ---
Today's Communication/Plan
-
Transfer to telemetry
Blood pressures was running slightly on the low side. Will defer to nephrology whether one of the antihypertensives needs to be cut back with addition of Lasix now.
Assessment / Plan
Assessment / Plan
CVS: S1-S2 normal
Chest: CTA B/L
Abdomen: Soft, NT / Bowel sounds present
Extremities: No edema, normal pulses
WAIT STAFF: Non focal exam
#Hyponatremia:
-SIADH related
-suspect pt noncompliant with FR, cont FR 1200cc/day
-Psychiatric medicines may be contributing
-cont BACK SHOE CUTTER NaCl tabs and lasix
#CAD with h/o stent:
-Trops noted, Non PR trop elevation
-check echo 07/24/23AM
-cont ASA/Plavix/BB/statin
#Essential Hypertension: Multidrug resistant metoprolol/lisinopril/hydralazine/Norvasc/spironolactone
Blood pressure is slightly on the low side
May need to cut back on one of the medicines with addition of Lasix now.
#Hyperlipidemia: continue statin
#Hypothyroidism: continue Synthroid
#Schizophrenia: with anxiety, cont Depakote/risperidone/carbamazepine
#h/o Polycythemia with h/o bone marrow biopsy (details unclear)
#h/o alcohol abuse
#Tobacco abuse disorder: Encourage smoking cessation
#FULL
#Lovenox
Anticipated Discharge: Within 24 hours
Subjective/Interval History
-
Date of Service: July 23, 2023
Objective Data
-
Labs:
Laboratory Results
07/23/23
03:28
WBC 9.5
Hgb 14.5
Hct 41.6
Plt Count 337
Sodium 126 L
Potassium 5.2 H
Chloride 99
Carbon Dioxide 20 L
BUN 12
Creatinine 0.6 L
Glucose 81
Calcium 8.8
Vital Signs:
Vital Signs
Temp Pulse Resp BP Pulse Ox
97.8 F 49 14 146/77 95
07/23/23 07:30 07/23/23 06:00 07/23/23 06:00 07/23/23 06:00 07/23/23 04:04
I&O
07/22/23 07/23/23 07/24/23
06:59 06:59 06:59
Intake Total 240 / 240 360 / 360
Output Total 1300 / 1300
Balance 240 / 240 -940 / -940
[2023-07-23] MEDS: LASIX 40 MG PO (10:07)
--- NOTE | 2023-07-23 13:45 | W.PN.NEPH.PH ---
Today's Communication / Plan
-
- lasix
Assessment/Plan
-
Assessment:
Hyponatremia to 119
CAD s/p stent
HTN (on metop, lisinopril, hydralazine, norvasc, spironolactone)
DLD
Hypothyroidism (last TSH wnl)
Schizophrenia
alcohol abuse (no longer using)
active smoker
Plan:
- Na from 119 --> 122 --> 126
- initiated on salt tabs + lasix 40mg daily + FR
- UOsm consistent with SIADH
- continue to trend BMPs
- consider echocardiogram
-
-
Date of Service: July 23, 2023
CC / HPI / ROS
-
Chief Complaint:
hyponatremia
History of Present Illness:
Na improved from 119 --> 126
encouraged fluid restrcition
Review of Systems:
patient feeling okay this AM
Labs
-
Labs:
WBC 9.5 10^3/uL (4.8-10.8) 07/23/23 03:28
RBC 4.99 10^6/uL (4.70-6.10) 07/23/23 03:28
Hgb 14.5 g/dL (13.0-18.0) 07/23/23 03:28
Hct 41.6 % (39.0-52.0) 07/23/23 03:28
Plt Count 337 10^3/uL (130-400) 07/23/23 03:28
Sodium 126 mmol/L (135-145) L 07/23/23 03:28
Potassium 5.2 mmol/L (3.5-5.1) H 07/23/23 03:28
Chloride 99 mmol/L (98-107) 07/23/23 03:28
Carbon Dioxide 20 mmol/L (22-30) L 07/23/23 03:28
BUN 12 mg/dl (9-20) 07/23/23 03:28
Creatinine 0.6 mg/dL (0.7-1.3) L 07/23/23 03:28
eGFR > 60.00 07/23/23 03:28
Glucose 81 mg/dl (70-99) 07/23/23 03:28
Calcium 8.8 mg/dl (8.4-10.2) 07/23/23 03:28
Albumin 4.5 g/dl (3.5-5.0) 07/21/23 16:48
Physical Exam
-
Vital Signs:
Vital Signs
Temp Pulse Resp BP Pulse Ox
97.8 F 59 18 127/71 94
07/23/23 07:30 07/23/23 12:00 07/23/23 12:00 07/23/23 12:00 07/23/23 12:00
Cardiovascular:: Regular rate and rhythm
Respiratory:: Bilateral: CTA
Lung Excursion:: Normal
Abdomen:: Nontender and Soft
Bowel Sounds:: Normal
Extremity Edema:: None: Bilateral:
Hutchinson Catheter: No
--- NOTE | 2023-07-23 15:30 | PTCARENOTE ---
Received patient as transfer from IMU into room 2136. Patient AAOx3, VSS, x1 assist in room. Report from IMU nurse Velia given to this RN, patient transferred via wheelchair with belongings. Patient oriented to room and call amy, states no
concerns at this time.
[2023-07-23] MEDS: PLAVIX 75 MG PO (17:12)
[2023-07-23] MEDS: LOVENOX 40 MG SC (17:12)
[2023-07-23] MEDS: LIPITOR 80 MG PO (21:57)
[2023-07-23] MEDS: RISPERDAL 3 MG PO (21:58)
[2023-07-24 03:32] VITALS: BP 110/68
[2023-07-24 05:38] LABS: Blood Urea Nitrogen 16 mg/dl (9-20); Calcium 8.9 mg/dl (8.4-10.2); Carbon Dioxide 20 mmol/L (22-30); Chloride 98 mmol/L (98-107); Estimated Creatinine Clearance 125 ml/min; Glucose 84 mg/dl (70-99); Potassium 4.7 mmol/L (3.5-5.1); Sodium 126 mmol/L (135-145); eGFR > 60.00
[2023-07-24] MEDS: SYNTHROID 25 MCG PO (05:58)
[2023-07-24 07:00] VITALS: BP 121/79
--- NOTE | 2023-07-24 07:50 | W.PN.HOSP.TC ---
Today's Communication/Plan
-
see bold
Assessment / Plan
Assessment / Plan
Gen: NAD, Awake and alert
Eyes: EOMI, PERRLA, no scleral icterus.
Neck: supple.
CV: RRR, +S1/S2, no m/r/g.
Resp: CTAB, no rales, wheezes, or rhonchi.
Abd: +BS, soft, NT, ND
Skin: No rashes.
Neuro: CN 2-12 intact, non-focal.
Psych: slightly flat affect.
Hyponatremia:
-suspect pt had been noncompliant with FR, cont FR 1200cc/day
-renal following
-s/p 3% NS x 2, Na improving
-Psychiatric medicines may be contributing
-cont FEEDER TENDER NaCl tabs
CAD with h/o stent:
-ECG (read by me): NSR @ 60, nl axis/intervals, TWi V2-V4, I, aVL. Repeat ECG without significant change.
-Trops noted, improved on trend
-check echo 24AM
-cont ASA/Plavix/BB/statin
-appreciate cards. Case discussed with Dr. Odell. Will obtain records from OSH.
Other problems:
Essential Hypertension: continue metoprolol/lisinopril/hydralazine/Norvasc/spironolactone
Hyperlipidemia: continue statin
Hypothyroidism: continue Synthroid
Schizophrenia: with anxiety, cont Depakote/risperidone/carbamazepine
h/o Polycythemia with h/o bone marrow biopsy (details unclear)
h/o alcohol abuse
Tobacco abuse disorder: Encourage smoking cessation
FULL/Lovenox
Anticipated Discharge: 24 - 48 hours
Subjective/Interval History
-
Date of Service: July 24, 2023
Denies CP/SOB.
Objective Data
-
Labs:
Laboratory Results
07/24/23
04:19
Sodium 126 L
Potassium 4.7
Chloride 98
Carbon Dioxide 20 L
BUN 16
Creatinine 0.6 L
Glucose 84
Calcium 8.9
Vital Signs:
Vital Signs
Temp Pulse Resp BP Pulse Ox
97.7 F 50 18 110/68 95
07/24/23 03:32 07/24/23 03:32 07/24/23 03:32 07/24/23 03:32 07/24/23 03:32
I&O
07/23/23 07/24/23 07/25/23
06:59 06:59 06:59
Intake Total 360 / 360 840 / 840
Output Total 1300 / 1300
Balance -940 / -940 840 / 840
[2023-07-24] MEDS: SODIUM CHLORIDE 1 GRAM PO ×2 (08:36→21:22)
[2023-07-24] MEDS: TEGRETOL 200 MG PO ×2 (08:36→21:15)
[2023-07-24] MEDS: LOW STRENGTH ASPIRIN 81 MG PO (08:36)
[2023-07-24] MEDS: LASIX 40 MG PO (08:37)
[2023-07-24] MEDS: ALDACTONE 25 MG PO (08:37)
[2023-07-24] MEDS: NORVASC 10 MG PO (08:37)
[2023-07-24] MEDS: TOPROL XL 25 MG PO ×2 (08:37→21:16)
[2023-07-24] MEDS: APRESOLINE 25 MG PO ×2 (08:37→21:15)
[2023-07-24] MEDS: NICODERM TRANSDERMAL 14 MG TRANSDERM (08:37)
[2023-07-24] MEDS: ZESTRIL 20 MG PO ×2 (08:37→21:17)
[2023-07-24] MEDS: DEPAKOTE (12 HR RELEASE) 500 MG PO ×2 (08:39→21:15)
--- NOTE | 2023-07-24 08:41 | CON.CAR ---
Addendum entered and electronically signed by Garcia Odell MD 07/24/23 09:57:
I saw and examined the patient.
The DIRECTOR EXPORT's note was reviewed and I agree with the note.
47-year-old male with a history of coronary artery disease, coronary artery stenting approximately 1 month ago, hyponatremia, schizophrenia, smoking and hypothyroidism who was admitted with severe hyponatremia sodium as low as 119. Patient was
noted to have an abnormal ECG which showed evidence of prior anterior CO of unclear duration with Q waves anteriorly and biphasic T waves in the precordium. ECG was significantly different than prior ECG at [place] in 2020. However in further
discussion with the patient he had been hospitalized about a month ago at [facility] and reportedly was told that he had had a heart attack he underwent cardiac catheterization and coronary stenting. Further details unclear. In further discussion
with him he does not recall having chest discomfort or feeling sick or thinking he had heartburn or GI issues. Exact timing of CO not clear. Patient currently without chest discomfort. He has been able to go up a flight of stairs at home without
a problem but has not been doing any more vigorous activity. Currently chest pain-free in the hospital.Mild to moderate aortic regurgitation.
-Continue treatment of hypotension natremia as directed by primary team and nephrology. Sodium now up to 126
-Continue dual antiplatelet therapy in this patient who had recent coronary stenting.
-Will obtain previous records from [facility] including prior ECG and prior catheterization. If ECG and records are consistent with the above history and patient remains asymptomatic then I would recommend just continuing current medical therapy and
having the patient follow-up with his primary lapel baster at [facility] after discharge.
-Await records
Original Note:
Consultation
Consultation Request
Date/Time Consultation Requested: 07/24/23 1238
Date/Time Consultation Performed: 07/24/23 8958
Requesting Provider: Dr. Holcomb
Performing Provider: Maisha MENG for Dr. Odell
Reason for Consultation: abnormal EKG
Medical History
-
Chief Complaint: hyponatremia
History of Present Illness:
47 y/o male with hyponatremia, hypertension, dyslipidemia, CAD with stenting, schizophrenia, hypothyroidism, current smoker, and former ETOH who was recently hospitalized here with hyponatremia is here for recurrent significant hyponatremia (119).
We are consulted since he is noted to have an abnormal EKG. Troponin was up to 0.039. Patient reports he was recently in [facility] (last month) for hyponatremia and was told he had an CO and had cath and stenting- details unknown and records
requested. He denies any CP or SOB and appears calm and comfortable at the time of my assessment.
Past Medical History
Past Medical History: CAD, HTN, Hypercholesterolemia, Hypothyroidism, Psychiatric (schizophrenia) and Other (hyponatremia)
Social History
Tobacco: Smoker (1 PPD)
Alcohol: Former (1/2 bottle liquor, but quit month ago per patient)
Family History
Family History: Reviewed & Not Pertinent (no early CAD per patient)
Allergies / Home Medications
Allergy/AdvReac Type Severity Reaction Status Date / Time
codeine Allergy stiff Verified 08/22/20 10:37
muscles
�Medication �Instructions �Recorded �Confirmed �Type
carbamazepine 200 mg tablet 200 mg PO BID Neurological 08/22/20 07/21/23 History
Condition
levothyroxine 25 mcg tablet 25 mcg PO DAILY@0700 Thyroid 08/22/20 07/21/23 History
risperidone 3 mg tablet (Risperdal) 3 mg PO HS Neurological Condition 08/22/20 07/21/23 History
amlodipine 10 mg tablet (Norvasc) 10 mg PO DAILY Blood Pressure 07/07/23 07/21/23 History
aspirin 81 mg chewable tablet 81 mg PO DAILY Blood Clot 07/07/23 07/21/23 History
Prevention/Tx
atorvastatin 80 mg tablet 80 mg PO HS High Cholesterol 07/07/23 07/21/23 History
clopidogrel 75 mg tablet 75 mg PO QPM Blood Clot 07/07/23 07/21/23 History
Prevention/Tx
divalproex 500 mg tablet,delayed 500 mg PO BID seizure and psych 07/07/23 07/21/23 History
release
metoprolol succinate 25 mg 25 mg PO BID Heart Condition 07/07/23 07/21/23 History
tablet,extended release 24 hr
acetaminophen 325 mg tablet 650 mg (2 x 325 mg) PO Q4HPRN PRN 07/09/23 07/21/23 Rx
mild pain/DONALD/temp> 100.4F #0 tabs
hydralazine 25 mg tablet 25 mg PO BID #60 tabs 07/09/23 07/21/23 Rx
sodium chloride 1,000 mg soluble 1,000 mg PO BID #60 tabs 07/09/23 07/21/23 Rx
tablet
lisinopril 20 mg tablet 20 mg PO BID Heart 07/21/23 07/21/23 History
Disease/Condition
spironolactone 25 mg tablet 25 mg PO DAILY 07/21/23 07/21/23 History
Review of Systems
-
History Source: Patient
All other systems: Negative unless noted (patient denies any symptoms and is feeling fine)
Physical Exam
Vital Signs
Temp Pulse Resp BP Pulse Ox
98 F 59 15 121/79 97
07/24/23 07:00 07/24/23 07:00 07/24/23 07:00 07/24/23 07:00 07/24/23 07:00
Lab Results
07/23/23 03:28
07/24/23 04:19
Troponin I 0.031 ng/ml 07/23/23 03:28
Physical Exam
General: Well Developed, Well Nourished and No Apparent Distress
HEENT: Normocephalic and Anicteric
Respiratory: Clear and Non Labored Respirations
Cardiac: Regular Rhythm
Skin: Warm and Dry
Neuro: Awake and Alert
Psych: Calm
Impression / Plan
-
Hyponatremia: severe
-improving overall
-management per internal medicine/nephrology
Abnormal EKG:
-in setting of recent CO and stenting ([place] last month per patient- records requested)
-no CP or SOB
-trops mildly elevated up to 0.038 (in setting of recent CO as noted)
-check echo this AM - pending
CAD with history of recent stenting:
-on ASA, plavix, statin, and BB- continue
-records requested
Schizophrenia:
-on medical therapy
Smoker:
-recommend cessation
HTN:
-multidrug HTN
-monitor
Data Reviewed
-
EKG: Tracing Personally Visualized and interpreted (SB at 49 BPM with anterior and lateral t wave inversions)
Radiology: Report Reviewed by me (CXR: Hypoaerated lungs without consolidation.)
Medical Tests (Nuc Med, Echo etc): Other (pending this AM)
Labs: Labs Reviewed by me
Old Records: Requested
[2023-07-24 11:00] VITALS: BP 130/76
--- NOTE | 2023-07-24 11:08 | W.PN.NEPH.PH ---
Today's Communication / Plan
-
Tolvaptan
Assessment/Plan
-
Assessment:
Hyponatremia to 119
CAD s/p stent
HTN (on metop, lisinopril, hydralazine, norvasc, spironolactone)
DLD
Hypothyroidism (last TSH wnl)
Schizophrenia
alcohol abuse (no longer using)
active smoker
Plan:
- Na from 119 --> 122 --> 126
- initiated on salt tabs + lasix 40mg daily + FR
- UOsm consistent with SIADH
- continue to trend BMPs
-Will order 7.5 mg of tolvaptan for SIADH
-
-
Date of Service: July 24, 2023
CC / HPI / ROS
-
Chief Complaint:
hyponatremia
History of Present Illness:
Na improved from 119 --> 126
encouraged fluid restrcition
Review of Systems:
patient feeling okay this AM
Labs
-
Labs:
WBC 9.5 10^3/uL (4.8-10.8) 07/23/23 03:28
RBC 4.99 10^6/uL (4.70-6.10) 07/23/23 03:28
Hgb 14.5 g/dL (13.0-18.0) 07/23/23 03:28
Hct 41.6 % (39.0-52.0) 07/23/23 03:28
Plt Count 337 10^3/uL (130-400) 07/23/23 03:28
Sodium 126 mmol/L (135-145) L 07/24/23 04:19
Potassium 4.7 mmol/L (3.5-5.1) 07/24/23 04:19
Chloride 98 mmol/L (98-107) 07/24/23 04:19
Carbon Dioxide 20 mmol/L (22-30) L 07/24/23 04:19
BUN 16 mg/dl (9-20) 07/24/23 04:19
Creatinine 0.6 mg/dL (0.7-1.3) L 07/24/23 04:19
eGFR > 60.00 07/24/23 04:19
Glucose 84 mg/dl (70-99) 07/24/23 04:19
Calcium 8.9 mg/dl (8.4-10.2) 07/24/23 04:19
Albumin 4.5 g/dl (3.5-5.0) 07/21/23 16:48
Physical Exam
-
Vital Signs:
Vital Signs
Temp Pulse Resp BP Pulse Ox
98 F 59 15 121/79 97
07/24/23 07:00 07/24/23 08:37 07/24/23 07:00 07/24/23 08:37 07/24/23 07:00
Cardiovascular:: Regular rate and rhythm
Respiratory:: Bilateral: CTA
Lung Excursion:: Normal
Abdomen:: Nontender and Soft
Bowel Sounds:: Normal
Extremity Edema:: None: Bilateral:
Hutchinson Catheter: No
[2023-07-24] MEDS: SAMSCA 7.5 MG PO (11:33)
--- NOTE | 2023-07-24 12:19 | CM ---
Addendum entered by Chitra Fisher RN 07/24/23 13:10:
IMM signed and placed on the chart.
Addendum entered by Chitra Fisher RN 07/24/23 12:43:
Discussed further with the patient and liaison Lisbet with [facility]. PT was recently extended for the the patient. Patient agreeable to [facility].
Fax report to: [phone]
Per patient, he will take a Lyft home at discharge.
Original Note:
Reviewed the chart notes and spoke with the patient at the bedside. The patient resides in a [facility] longterm with others. The patient has a private bedroom, but shares the bathroom and kitchen. The patient reports no DME or SNF, but
has recently had [facility] and does not feel he needs to continue with VN services at discharge. CM continues to be available to patient/family and is monitoring medical plan for needs at discharge.
Plan: Discharge to home when medically stable. No additional needs identified at this time.
[2023-07-24 15:00] VITALS: BP 126/63
[2023-07-24] MEDS: LOVENOX 40 MG SC (16:54)
[2023-07-24] MEDS: PLAVIX 75 MG PO (16:55)
[2023-07-24 19:34] VITALS: BP 134/72
[2023-07-24] MEDS: RISPERDAL 3 MG PO (21:16)
[2023-07-24] MEDS: LIPITOR 80 MG PO (21:21)
[2023-07-24 23:38] VITALS: BP 113/70
[2023-07-25 03:35] VITALS: BP 107/69
[2023-07-25] MEDS: SYNTHROID 25 MCG PO (04:10)
[2023-07-25 06:49] LABS: Carbon Dioxide 24 mmol/L (22-30); Chloride 95 mmol/L (98-107); Potassium 5.2 mmol/L (3.5-5.1); Sodium 129 mmol/L (135-145)
[2023-07-25 07:00] VITALS: BP 111/69
[2023-07-25] MEDS: SODIUM CHLORIDE 1 GRAM PO ×2 (08:32→21:10)
[2023-07-25] MEDS: TEGRETOL 200 MG PO ×2 (08:33→21:11)
[2023-07-25] MEDS: APRESOLINE 25 MG PO ×2 (08:33→21:10)
[2023-07-25] MEDS: LASIX 40 MG PO (08:33)
[2023-07-25] MEDS: ZESTRIL 20 MG PO ×2 (08:33→21:12)
[2023-07-25] MEDS: LOW STRENGTH ASPIRIN 81 MG PO (08:33)
[2023-07-25] MEDS: NICODERM TRANSDERMAL 14 MG TRANSDERM (08:33)
[2023-07-25] MEDS: ALDACTONE 25 MG PO (08:33)
[2023-07-25] MEDS: DEPAKOTE (12 HR RELEASE) 500 MG PO ×2 (08:33→21:10)
[2023-07-25] MEDS: NORVASC 10 MG PO (08:33)
[2023-07-25] MEDS: TOPROL XL PO ×2 (08:34→21:12)
[2023-07-25] MEDS: TOPROL XL 25 MG PO (09:06)
--- NOTE | 2023-07-25 09:08 | W.PN.CD ---
Today's Communication / Plan
-
Cardiology will sign off
He should continue DAPT for 1 yr from stent/NC and then likely go to single agent. But if he continues to smoke could and given young age could consider nursing home DAPT
Continue meds for combination HTN and LV dysfunction (HERIBERTO-I, BB, Aldactone)
He should see his credit portfolio advisor at [facility] Cardiology and enroll in cardiac rehab
Impression / Plan
-
Abnormal EKG
- Combination of recent anterior NC and perhaps LVH
- Consistent with evolutionary changes from his NC/LAD stent 06/2023 at [place] => prior EKGs reviewed
CAD/ recent NC and recent LAD stent => he denies current or prior CP/chest sx!!
- Records from [facility] reviewed => Some EKGs there most c/w anterior STEMI, acute LVEF 35-40%
- Cath with 100 mLAD and 100 dLAD, signif diag disease, mild CAD in other vessels (not more than 40%). Had PCI with stent to mLAD (mid Jun 2023 at [place]/)H
- Continue DAPT
- Continue HERIBERTO-I/BB/Aldactone
- Echo here with improvement in LVEF to 50-55%, valves OK
Hyponatremia
Schizophrenia
Smoker, I told him to quit
HTN
Mixed hyperlipidemia, on high intensity statin
Physical Exam
Vital Signs/Labs
Vital Signs
Temp Pulse Resp BP Pulse Ox
98 F 51 15 111/69 95
07/25/23 07:00 07/25/23 08:33 07/25/23 07:00 07/25/23 08:33 07/25/23 07:00
07/23/23 03:28
07/25/23 05:35
Magnesium 2.1 mg/dl (1.6-2.3) 07/22/23 04:57
LAB Results
07/22/23 07/22/23 07/23/23
13:22 19:15 03:28
Troponin I 0.030 Cancelled 0.031
Physical Exam
Constitutional: No acute distress
EENT: Anicteric
Cardiovascular: Rhythm & rate is regular and Pedal edema is absent
Respiratory: Respiratory effort normal and Lungs clear to auscul.
GI: Soft and Distention absent
Neuro/Psych: Alert
Data Reviewed
-
Date of Service: July 25, 2023
Total Time Spent with Patient (in minutes): 55 min spent with extensive record review, seeing pt, writing note
[2023-07-25 11:01] VITALS: BP 104/64
--- NOTE | 2023-07-25 12:01 | W.PN.NEPH.PH ---
Today's Communication / Plan
-
Tolvaptan 7.5 mg
Assessment/Plan
-
Assessment:
Hyponatremia to 119
CAD s/p stent
HTN (on metop, lisinopril, hydralazine, norvasc, spironolactone)
DLD
Hypothyroidism (last TSH wnl)
Schizophrenia
alcohol abuse (no longer using)
active smoker
Plan:
- Na from 119 --> 122 --> 126_>129 after tolvaptan on 07/23
-Repeat 7.5 mg tolvaptan today
-Maintain on salt tabs + lasix 40mg daily + FR
- UOsm consistent with SIADH (likely aggravated by carbamazepine)
-Patient could possibly be discharged today as we have maximized outpatient hyponatremia manage
-He would need repeat BMP later this week and will follow-up with Dr. Boudreaux of our practice
-
-
Date of Service: July 25, 2023
CC / HPI / ROS
-
Chief Complaint:
hyponatremia
History of Present Illness:
Na improved from 119 --> 126 to 129 after tolvaptan
encouraged fluid restriction
Review of Systems:
patient feeling okay this AM
Labs
-
Labs:
WBC 9.5 10^3/uL (4.8-10.8) 07/23/23 03:28
RBC 4.99 10^6/uL (4.70-6.10) 07/23/23 03:28
Hgb 14.5 g/dL (13.0-18.0) 07/23/23 03:28
Hct 41.6 % (39.0-52.0) 07/23/23 03:28
Plt Count 337 10^3/uL (130-400) 07/23/23 03:28
Sodium 129 mmol/L (135-145) L 07/25/23 05:35
Potassium 5.2 mmol/L (3.5-5.1) H 07/25/23 05:35
Chloride 95 mmol/L (98-107) L 07/25/23 05:35
Carbon Dioxide 24 mmol/L (22-30) 07/25/23 05:35
BUN 16 mg/dl (9-20) 07/24/23 04:19
Creatinine 0.6 mg/dL (0.7-1.3) L 07/24/23 04:19
eGFR > 60.00 07/24/23 04:19
Glucose 84 mg/dl (70-99) 07/24/23 04:19
Calcium 8.9 mg/dl (8.4-10.2) 07/24/23 04:19
Albumin 4.5 g/dl (3.5-5.0) 07/21/23 16:48
Physical Exam
-
Vital Signs:
Vital Signs
Temp Pulse Resp BP Pulse Ox
98.2 F 63 18 104/64 95
07/25/23 11:01 07/25/23 11:01 07/25/23 11:01 07/25/23 11:01 07/25/23 11:01
Cardiovascular:: Regular rate and rhythm
Respiratory:: Bilateral: CTA
Lung Excursion:: Normal
Abdomen:: Nontender and Soft
Bowel Sounds:: Normal
Extremity Edema:: None: Bilateral:
Hutchinson Catheter: No
[2023-07-25] MEDS: SAMSCA 7.5 MG PO (12:23)
--- NOTE | 2023-07-25 13:18 | W.PN.HOSP.TC ---
Today's Communication/Plan
-
follow AM Na
Assessment / Plan
Assessment / Plan
Gen: NAD, Awake and alert
Eyes: EOMI, PERRLA, no scleral icterus.
Neck: supple.
CV: remains RRR, +S1/S2, no m/r/g.
Resp: remains CTAB, no rales, wheezes, or rhonchi.
Abd: remains +BS, soft, NT, ND
Skin: No rashes.
Neuro: CN 2-12 intact, non-focal.
Psych: slightly flat affect.
Echo: Estimated ejection fraction 50 to 55%. Mild anterior hypokinesis suspected. No significant valve abnormalities. No prior study available for comparison.
Hyponatremia:
-suspect pt had been noncompliant with FR, cont FR 1200cc/day
-renal following
-s/p 3% NS x 2, Na improving
-cont Lasix
-Samsca 7.5mg today
-Psychiatric medicines may be contributing
-cont BUSINESS INFORMATION MANAGER NaCl tabs
CAD with h/o stent:
-ECG (read by me): NSR @ 60, nl axis/intervals, TWi V2-V4, I, aVL. Repeat ECG without significant change.
-Trops noted, improved on trend
-echo above
-cont ASA/Plavix/BB/statin
-cards saw in c/s, recommended follow up at [facility]
Other problems:
Essential Hypertension: continue metoprolol/lisinopril/hydralazine/Norvasc/spironolactone
Hyperlipidemia: continue statin
Hypothyroidism: continue Synthroid
Schizophrenia: with anxiety, cont Depakote/risperidone/carbamazepine
h/o Polycythemia with h/o bone marrow biopsy (details unclear)
h/o alcohol abuse
Tobacco abuse disorder: Encourage smoking cessation
Pt's mother updated at bedside.
FULL/Lovenox
Anticipated Discharge: Within 24 hours
Subjective/Interval History
-
Date of Service: July 25, 2023
No new complaints.
Objective Data
-
Labs:
Laboratory Results
07/25/23
05:35
Sodium 129 L
Potassium 5.2 H
Chloride 95 L
Carbon Dioxide 24
Vital Signs:
Vital Signs
Temp Pulse Resp BP Pulse Ox
98.2 F 63 18 104/64 95
07/25/23 11:01 07/25/23 11:01 07/25/23 11:01 07/25/23 11:01 07/25/23 11:01
I&O
07/24/23 07/25/23 07/26/23
06:59 06:59 06:59
Intake Total 840 / 840 1100 / 1100
Output Total 490 / 490
Balance 840 / 840 1100 / 1100 -490 / -490
--- NOTE | 2023-07-25 14:07 | CM ---
Reviewed the chart notes and spoke with the patient while he was ambulating in the hallway. Patient expects to discharge to home with [facility]. Per patient, he will take a Lyft home at discharge. CM continues to be available to patient/family
and is monitoring medical plan for needs at discharge.
[facility] fax: [phone]
[2023-07-25] MEDS: LOKELMA 10 GRAM PO (14:23)
[2023-07-25 15:00] VITALS: BP 102/47
[2023-07-25] MEDS: PLAVIX 75 MG PO (16:59)
[2023-07-25] MEDS: LOVENOX 40 MG SC (16:59)
[2023-07-25 19:05] VITALS: BP 131/73
[2023-07-25] MEDS: LIPITOR 80 MG PO (21:08)
[2023-07-25] MEDS: RISPERDAL 3 MG PO (21:10)
[2023-07-25 22:34] VITALS: BP 113/64
[2023-07-26 03:05] VITALS: BP 107/64
--- NOTE | 2023-07-26 04:50 | DOWNTIME ---
There was a [employer] Client Health Information Manager Downtime on 07/26/2023 from 0100 to 07/26/2023 at 0439. Downtime documentation of patient's care, including medication administrations, has been reconciled in the electronic record per guidelines. Refer to the
patient's paper chart under the miscellaneous tab to see printed paper medication records and downtime forms.
[2023-07-26] MEDS: SYNTHROID 25 MCG PO (05:59)
--- NOTE | 2023-07-26 06:52 | W.PN.HOSP.TC ---
Addendum entered and electronically signed by Jodri Holcomb MD 07/26/23 11:21:
Total time spent on d/c = 31 min. This included today's physical exam, progress note, review of laboratory and diagnostic data, preparation of discharge documents and prescriptions, and discussions about the pt's hospital course and discharge plan
with the patient and other medical aides teacher involved in the patient's care.
Original Note:
Today's Communication/Plan
-
discharge depends on today's Na
Assessment / Plan
Assessment / Plan
Gen: NAD, Awake and alert
Eyes: EOMI, PERRLA, no scleral icterus.
Neck: supple.
CV: remains RRR, +S1/S2, no m/r/g.
Resp: remains CTAB, no rales, wheezes, or rhonchi.
Abd: remains +BS, soft, NT, ND
Skin: No rashes.
Neuro: CN 2-12 intact, non-focal.
Psych: slightly flat affect.
Echo: Estimated ejection fraction 50 to 55%. Mild anterior hypokinesis suspected. No significant valve abnormalities. No prior study available for comparison.
Hyponatremia:
-suspect pt had been noncompliant with FR, cont FR 1200cc/day
-Psychiatric medicines may be contributing
-renal following
-s/p 3% NS x 2 and Samsca
-cont Lasix
-cont SYSTEMATIC THEOLOGY PROFESSOR NaCl tabs
CAD with h/o stent:
-ECG (read by me): NSR @ 60, nl axis/intervals, TWi V2-V4, I, aVL. Repeat ECG without significant change.
-Trops noted, improved on trend
-echo above
-cont ASA/Plavix/BB/statin
-cards saw in c/s, recommended follow up at [facility]
Other problems:
Essential Hypertension: continue metoprolol/lisinopril/hydralazine/Norvasc/spironolactone
Hyperlipidemia: continue statin
Hypothyroidism: continue Synthroid
Schizophrenia: with anxiety, cont Depakote/risperidone/carbamazepine
h/o Polycythemia with h/o bone marrow biopsy (details unclear)
h/o alcohol abuse
Tobacco abuse disorder: Encourage smoking cessation
FULL/Lovenox
Anticipated Discharge: Today
Subjective/Interval History
-
Date of Service: July 26, 2023
Objective Data
-
Labs:
Laboratory Results
07/26/23
06:00
Sodium Pending
Potassium Pending
Chloride Pending
Carbon Dioxide Pending
BUN Pending
Creatinine Pending
Glucose Pending
Calcium Pending
Vital Signs:
Vital Signs
Temp Pulse Resp BP Pulse Ox
97.9 F 49 14 107/64 95
07/26/23 03:05 07/26/23 03:05 07/26/23 03:05 07/26/23 03:05 07/26/23 03:05
I&O
07/24/23 07/25/23 07/26/23
06:59 06:59 06:59
Intake Total 840 / 840 1100 / 1100 1140 / 1140
Output Total 1530 / 1530
Balance 840 / 840 1100 / 1100 -390 / -390
[2023-07-26 07:35] VITALS: BP 126/73
[2023-07-26] MEDS: SODIUM CHLORIDE 1 GRAM PO (08:40)
[2023-07-26] MEDS: LASIX 40 MG PO (08:40)
[2023-07-26] MEDS: NICODERM TRANSDERMAL 14 MG TRANSDERM (08:40)
[2023-07-26] MEDS: NORVASC 10 MG PO (08:41)
[2023-07-26] MEDS: DEPAKOTE (12 HR RELEASE) 500 MG PO (08:41)
[2023-07-26] MEDS: APRESOLINE 25 MG PO (08:41)
[2023-07-26] MEDS: ZESTRIL 20 MG PO (08:41)
[2023-07-26] MEDS: TEGRETOL 200 MG PO (08:41)
[2023-07-26] MEDS: LOW STRENGTH ASPIRIN 81 MG PO (08:41)
[2023-07-26] MEDS: ALDACTONE 25 MG PO (08:41)
[2023-07-26] MEDS: TOPROL XL 25 MG PO (08:42)
[2023-07-26 09:18] LABS: Blood Urea Nitrogen 24 mg/dl (9-20); Calcium 9.4 mg/dl (8.4-10.2); Carbon Dioxide 23 mmol/L (22-30); Chloride 96 mmol/L (98-107); Estimated Creatinine Clearance 125 ml/min; Glucose 90 mg/dl (70-99); Potassium 4.9 mmol/L (3.5-5.1); Sodium 131 mmol/L (135-145); eGFR > 60.00
--- NOTE | 2023-07-26 10:18 | CM ---
Reviewed the chart notes and spoke with the patient at the bedside. IMM signed and placed on chart. Patient anticipates being discharged to home with [facility] services. Patient will take Lyft home. CM continues to be available to patient/family
and is monitoring medical plan for needs at discharge.
Plan: Discharge to home when medically stable with [facility] services.
[facility] fax: [phone]
--- NOTE | 2023-07-26 10:45 | W.DCSUMMARY ---
Discharge Summary
Discharge Data
Date of Admission: 07/21/23
Date of Discharge: 07/26/23
-
Pending Results: No
Hospital Course
Primary diagnoses:
Hyponatremia
Secondary diagnoses:
Coronary artery disease with history of stent
Essential Hypertension
Hyperlipidemia
Hypothyroidism
Schizophrenia
h/o Polycythemia with h/o bone marrow biopsy (details unclear)
h/o alcohol abuse
Tobacco abuse disorder
Consultants:
Nephrology
Cardiology
Imaging:
Echo: Estimated ejection fraction 50 to 55%. Mild anterior hypokinesis suspected. No significant valve abnormalities. No prior study available for comparison.
47-year-old male who presented with chief complaint of hyponatremia (abnormal labs) as outlined in the H&P done on admission. Hospital course by problem list:
Hyponatremia: Patient's sodium on admission was 119. At time of discharge his sodium is 131. It is likely he was noncompliant with fluid restriction. His psychiatric medications may have been contributing. He was seen in consultation by
nephrology. He received 3% normal saline x 2 and Samsca. He was placed on Lasix. His sodium chloride tablets were continued. Fluid restriction was reiterated to the patient multiple times.
CAD with h/o stent: ECG from admission showed NSR @ 60, nl axis/intervals, TWi V2-V4, I, aVL. Repeat ECG without significant change.Troponin peaked at 0.039 and trended down (nonischemic myocardial injury). The patient was seen in consultation by
cardiology. Echocardiogram above. The final recommendations from cardiology were to follow-up at [facility].
Discharge Plan
-
Patient Disposition: Home (Routine Discharge)
Discharge Diagnosis/Procedures: Hyponatremia
Condition: Good
Diet: Low Cholesterol and Other diet
Additional Diets: Heart healthy, fluid restrict to 1200 cc/day
Activity: As tolerated
Driving Restrictions: Not until seen by your Dr
Blood Work: BMP in 1 week, prescription from PCP
Referrals:
Reinaldo Beyer MD [Family Provider] - in less than 1 week
Prescriptions:
New
nicotine 14 mg/24 hr Patch 24 Hour
14 mg transdermal DAILY Qty: 0 0RF
furosemide 40 mg Tablet
40 mg PO DAILY Qty: 30 0RF
Continued
risperidone [Risperdal] 3 MG tablet
3 mg PO HS
levothyroxine 25 MCG tablet
25 mcg PO DAILY@0700
carbamazepine 200 MG tablet
200 mg PO BID
atorvastatin 80 mg tablet
80 mg PO HS
clopidogrel 75 mg tablet
75 mg PO QPM
divalproex 500 mg tablet,delayed release (DR/EC)
500 mg PO BID
aspirin 81 mg Tablet,Chewable
81 mg PO DAILY
metoprolol succinate 25 mg tablet extended release 24 hr
25 mg PO BID
amlodipine [Norvasc] 10 MG tablet
10 mg PO DAILY
hydralazine 25 mg Tablet
25 mg PO BID Qty: 60 0RF
sodium chloride 1,000 mg Tablet,Soluble
1,000 mg PO BID Qty: 60 0RF
acetaminophen 325 mg Tablet
650 mg PO Q4HPRN PRN (Reason: mild pain/DONALD/temp> 100.4F) Qty: 0 0RF
lisinopril 20 mg tablet
20 mg PO BID
spironolactone 25 mg tablet
25 mg PO DAILY
Discharge Orders:
Discharge Patient (As Directed); Ordered 07/26/23
Ordered By: Jordi Holcomb
Discharge Date and Time
Print Language: ITALIAN
--- NOTE | 2023-07-26 12:08 | W.PN.NEPH.PH ---
Today's Communication / Plan
-
- likely d/c later today
Assessment/Plan
-
Assessment:
Hyponatremia to 119
CAD s/p stent
HTN (on metop, lisinopril, hydralazine, norvasc, spironolactone)
DLD
Hypothyroidism (last TSH wnl)
Schizophrenia
alcohol abuse (no longer using)
active smoker
Plan:
- Na from 119 --> 131 after samsca x2
- Maintain on salt tabs + lasix 40mg daily + FR.
- i reiterated the importance of fluid restriction and patient said that he would try to adhere better
- UOsm consistent with SIADH (likely aggravated by carbamazepine)
- Patient okay for discharge
- BMP on Monday next week and I will arrange follow up in office
-
-
Date of Service: July 26, 2023
CC / HPI / ROS
-
Chief Complaint:
hyponatremia
History of Present Illness:
Na improved to 131 after tolvaptan x2
encouraged fluid restriction
Review of Systems:
patient feeling okay this AM
Labs
-
Labs:
WBC 9.5 10^3/uL (4.8-10.8) 07/23/23 03:28
RBC 4.99 10^6/uL (4.70-6.10) 07/23/23 03:28
Hgb 14.5 g/dL (13.0-18.0) 07/23/23 03:28
Hct 41.6 % (39.0-52.0) 07/23/23 03:28
Plt Count 337 10^3/uL (130-400) 07/23/23 03:28
Sodium 131 mmol/L (135-145) L 07/26/23 08:15
Potassium 4.9 mmol/L (3.5-5.1) 07/26/23 08:15
Chloride 96 mmol/L (98-107) L 07/26/23 08:15
Carbon Dioxide 23 mmol/L (22-30) 07/26/23 08:15
BUN 24 mg/dl (9-20) H 07/26/23 08:15
Creatinine 0.6 mg/dL (0.7-1.3) L 07/26/23 08:15
eGFR > 60.00 07/26/23 08:15
Glucose 90 mg/dl (70-99) 07/26/23 08:15
Calcium 9.4 mg/dl (8.4-10.2) 07/26/23 08:15
Albumin 4.5 g/dl (3.5-5.0) 07/21/23 16:48
Physical Exam
-
Vital Signs:
Vital Signs
Temp Pulse Resp BP Pulse Ox
97.9 F 61 14 126/73 95
07/26/23 07:35 07/26/23 08:42 07/26/23 07:35 07/26/23 08:41 07/26/23 10:16
Cardiovascular:: Regular rate and rhythm
Respiratory:: Bilateral: CTA
Lung Excursion:: Normal
Abdomen:: Nontender and Soft
Bowel Sounds:: Normal
Extremity Edema:: None: Bilateral:
Hutchinson Catheter: No
[2023-07-26 12:16] VITALS: BP 109/67
== END 2023-07-26 12:31 | disposition home health service (06) | DRG 645 ==
LOC: 2 NORTH 18:41
PROVIDERS: Nurse Practitioner Gerontology; Specialist; ADMITTING PHYSICIAN Hospitalist; ATTENDING PHYSICIAN Internal Medicine; CONSULT PHYSICIAN Internal Medicine Cardiovascular Disease; EMERGENCY PHYSICIAN Emergency Medicine; FAMILY PHYSICIAN Family Medicine; OTHER PHYSICIAN Student in an Organized Health Care Education/Training Program
DX: E22.2 Syndrome of inappropriate secretion of antidiuretic hormone (principal); I10 Essential (primary) hypertension; F20.9 Schizophrenia, unspecified; E03.9 Hypothyroidism, unspecified; D75.839 Thrombocytosis, unspecified; D75.1 Secondary polycythemia; F17.210 Nicotine dependence, cigarettes, uncomplicated; F41.9 Anxiety disorder, unspecified; Z95.5 Presence of coronary angioplasty implant and graft; Z91.119 Patient's noncompliance with dietary regimen due to unspecified reason; T50.905A Adverse effect of unspecified drugs, medicaments and biological substances, initial encounter
CPT/HCPCS: 70551; 71046; 80048; 80051; 80053; 80156; 81003; 83735; 83935; 84300; 84484; 85025; 85027; 87070; 93005; 93306; 96360; 99291; 99406

== ENCOUNTER 2023-08-08 13:43 | Inpatient (IN) | payer MEDICARE, SELFPAY ==
[2023-08-08] VITALS (16 sets, daily range): BP systolic 102–148; BP diastolic 63–96; BMI 22.2
[2023-08-08 10:19] LABS: % Basophils 1.3 % (0-2); % Eosinophils 3.4 % (0-6); % Immature Granulocytes 1.2 % (0-0.5); % Lymphocytes 27.9 % (20.5-51.1); % Monocytes 10.8 % (1.7-9.3); % Neutrophils 55.4 % (42.2-75.2); Absolute Basophils 0.1 10^3/uL (0-0.2); Absolute Eosinophils 0.3 10^3/uL (0-0.7); Absolute Immature Granulocytes 0.1 10^3/uL (0-0.05); Absolute Lymphocytes 2.1 10^3/uL (1.2-3.4); Absolute Monocytes 0.8 10^3/uL (0.1-0.6); Absolute Neutrophils 4.2 10^3/uL (1.4-6.5); Hematocrit 42.9 % (39.0-52.0); Hemoglobin 15.6 g/dL (13.0-18.0); Mean Corp Hgb Conc. 36.4 g/dL (33.0-37.0); Mean Corpuscular Hgb 29.5 pg (27.0-31.0); Mean Corpuscular Volume 81.1 fL (80.0-94.0); Mean Platelet Volume 9.1 fL (7.4-10.4); Nucleated Red Blood Cells % 0 % (-); Platelet Count 414 10^3/uL (130-400); Red Blood Cell Count 5.29 10^6/uL (4.70-6.10); Red Cell Dist. Width 13.8 % (11.5-14.5); White Blood Cell Count 7.7 10^3/uL (4.8-10.8)
--- NOTE | 2023-08-08 10:39 | ED.GENMED ---
History of Present Illness
<Marie Castillo PA-C - Last Filed: 08/08/23 12:34>
General
Chief Complaint: Abnormal Lab Value
Source: patient
Exam Limitations: none
Time Seen by Provider: 08/08/23 10:21
Nursing documentation reviewed up to this point in time: agreed with
Travel History
Have you had any contact with someone who has COVID-19?: No
Do you have any symptoms of coronavirus? Fever > 100 degrees, chills, cough, shortness of breath, sore throat, loss of taste or smell, muscle aches, or headache?: No
History of Present Illness
History of Present Illness:
Patient is a 47-year-old male with history of hyponatremia, hypertension, schizophrenia, alcohol abuse now in remission presents to the emergency department again for hyponatremia found on outpatient labs. Patient had outpatient labs drawn which
resulted today showing a sodium of 115. It was recommended that he come to the emergency department for further evaluation/management. Patient is asymptomatic at this time. He denies any chest pain, shortness of breath, heart palpitations. He
denies any headache, dizziness, weakness, syncope, motor difficulties, loss of balance. Patient states that he drinks about 5 cups of water per day and 2 cups of coffee. He does report adherence to his fluid restriction but unsure how accurate
this is.
Patient denies any alcohol drinking. States that it has been many years since his last drink.
Of note�patient was admitted from 07/20-07/25 at for hyponatremia and discharged with a Na of 131 and instructions for salt tabs, lasix, fluid restriction.
Past History
<Marie Castillo PA-C - Last Filed: 08/08/23 12:34>
Past History
ED Past Medical History: HTN, Hypercholesterolemia, Psychiatric (schizophrenia, alcohol abuse) and Other (Hyponatremia)
Social History
Tobacco: Smoker
Alcohol: Chronic alcoholic
Personal: Single
Living: other (fdc)
Phy Exam
<Marie Castillo PA-C - Last Filed: 08/08/23 12:34>
Physical Exam
Physical Exam:
General: In no apparent distress, nontoxic appearing
Vitals: Vital signs stable, afebrile
HEENT: Atraumatic, normocephalic; pupils equal round and reactive to light bilaterally, extraocular muscle intact, protecting airway
Neck: appears supple, no JVD
CV: Regular rate and rhythm, heart sounds normal, no evidence of cyanosis
Resp: No evidence of respiratory distress, lungs clear bilaterally
Abd: Soft, nontender, non-distended
Extremities: No deformities, no evidence of cyanosis or edema
Neuro: alert and oriented x 3; grossly intact
Psych: Normal affect
Skin: Intact, no rashes
Course
<Marie Castillo PA-C - Last Filed: 08/08/23 12:34>
Orders/Labs/Results
Orders:
Orders
08/08/23
Electrocardiogram (*1) Stat
Comment: ALREADY DONE
08/08/23 10:12
Complete Blood Count/With Diff Urgent
Comprehensive Metabolic Panel Urgent
08/08/23 10:50
Urinalysis Reflex To Culture Urgent
Urine Sodium Urgent
08/08/23 11:02
Serum Osmolality Urgent
3% Sodium Chloride 500 ml [Sodium Chloride 3%] 500 ml IV ONCE
08/08/23 12:00
3% Sodium Chloride 250 ml [Sodium Chloride 3%] 250 ml IV ONCE
08/08/23 12:04
Urine Osmolality Random [Osmolality, Random Urine] Stat
Urine Sodium Stat
Abnormal Lab Results
08/08/23
10:12
Plt Count 414 H 10^3/uL
(130-400)
Abs Immat Gran (auto) 0.1 H 10^3/uL
(0-0.05)
Absolute Monos (auto) 0.8 H 10^3/uL
(0.1-0.6)
Immature Gran % 1.2 H %
(0-0.5)
Monocytes % 10.8 H %
(1.7-9.3)
Sodium 110 L* mmol/L
(135-145)
Chloride 78 L mmol/L
(98-107)
BUN 2 L mg/dl
(9-20)
Glucose 109 H mg/dl
(70-99)
08/08/23 10:12
08/08/23 10:12
Vital Signs
Initial and Last Documented VS:
Initial Vital Signs
Temp Pulse Resp BP Pulse Ox
97.8 F 69 20 128/67 100
08/08/23 10:05 08/08/23 10:05 08/08/23 10:05 08/08/23 10:05 08/08/23 10:05
Last Documented Vital Signs
Temp Pulse Resp BP Pulse Ox
97.8 F 69 20 128/67 98
08/08/23 10:05 08/08/23 10:05 08/08/23 10:05 08/08/23 10:05 08/08/23 10:33
<Jesica Rodriguez MD - Last Filed: 08/08/23 11:30>
Orders/Labs/Results
Orders:
Orders
08/08/23
Electrocardiogram (*1) Stat
Comment: ALREADY DONE
08/08/23 10:12
Complete Blood Count/With Diff Urgent
Comprehensive Metabolic Panel Urgent
08/08/23 10:50
Urinalysis Reflex To Culture Urgent
Urine Sodium Urgent
08/08/23 11:02
Serum Osmolality Urgent
3% Sodium Chloride 500 ml [Sodium Chloride 3%] 500 ml IV ONCE
08/08/23 12:00
3% Sodium Chloride 250 ml [Sodium Chloride 3%] 250 ml IV ONCE
08/08/23 12:04
Urine Osmolality Random [Osmolality, Random Urine] Stat
Urine Sodium Stat
Abnormal Lab Results
08/08/23
10:12
Plt Count 414 H 10^3/uL
(130-400)
Abs Immat Gran (auto) 0.1 H 10^3/uL
(0-0.05)
Absolute Monos (auto) 0.8 H 10^3/uL
(0.1-0.6)
Immature Gran % 1.2 H %
(0-0.5)
Monocytes % 10.8 H %
(1.7-9.3)
Sodium 110 L* mmol/L
(135-145)
Chloride 78 L mmol/L
(98-107)
BUN 2 L mg/dl
(9-20)
Glucose 109 H mg/dl
(70-99)
08/08/23 10:12
08/08/23 10:12
Vital Signs
Initial and Last Documented VS:
Initial Vital Signs
Temp Pulse Resp BP Pulse Ox
97.8 F 69 20 128/67 100
08/08/23 10:05 08/08/23 10:05 08/08/23 10:05 08/08/23 10:05 08/08/23 10:05
Last Documented Vital Signs
Temp Pulse Resp BP Pulse Ox
97.8 F 69 20 128/67 98
08/08/23 10:05 08/08/23 10:05 08/08/23 10:05 08/08/23 10:05 08/08/23 10:33
<Marie Castillo PA-C - Last Filed: 08/08/23 12:34>
MDM/Problems Addressed
Differential Diagnosis Includes:
Not limited to: Hyponatremia, SIADH, medication reaction
MDM/Problems Addressed:
Patient is a 47-year-old male with history of chronic hyponatremia, schizophrenia, hypertension, alcohol abuse presenting for hyponatremia found on outpatient labs. Patient asymptomatic at this time. History of multiple admissions for hyponatremia
thought to be due to SIADH/medication induced. Vitals are stable, he is nontoxic-appearing sodium found to be 110 on arrival to emergency department. Will check serum osmolality, urine, urine sodium. Will start 3% saline. Suspect patient may be
drinking too much water and not adhering to fluid restriction. Admit to hospitalist for further management.
Chronic conditions affecting care:
Chronic hyponatremia, schizophrenia, hypertension, history alcohol abuse
Acute Exacerbation and/or Progression of Chronic Illness:
Hyponatremia
<Marie Castillo PA-C - Last Filed: 08/08/23 12:34>
*Pulse Oximetry
Patient hypoxic: no
*EKG
Interpreted by ED Provider?: Yes
EKG Intrepretation Date: 08/08/23
Interpretation: normal
Comparison EKG: no changes
Heart Rate: 64
Rate: normal
Rhythm: sinus
Ischemia: non-specific ST changes
*[employer] Repairer Interpretation
Rate: normal
Interpretation: normal
Heart Rate: 67
Rhythm: sinus
*Critical Care Note
Total Time (30-74mins, 75-104mins- exclusive of procedures): Not Applicable
<Marie Castillo PA-C - Last Filed: 08/08/23 12:34>
Patient Management
Discussion with other providers: Hospitalist
Escalation/DeEscalation of care consider admission/obs:
Severe hyponatremia, admit for further management
ED Attending Note
<Marie Castillo PA-C - Last Filed: 08/08/23 12:34>
-
Portions of this chart may have been created with voice recognition software.� Occasional wrong word or��sound alike� substitutions may have occurred due to the inherent limitations of voice recognition software.
<Jesica Rodriguez MD - Last Filed: 08/08/23 11:30>
ED Attending Note
Patient seen and examined by attending physician: Yes
I performed the substantive portion of visit, reviewed & personally made and approve the management plan that is documented in note by myself or KIM.: Yes
ED Attending Note:
Patient appears well and nontoxic. He denies all complaints. He is alert and oriented x 3. There is no tremor or any sign of weakness. Given his sodium was 115 yesterday, I am suspicious for him drinking excessive amounts of water.
Discharge Plan
Departure
Patient Disposition: Admit
Date of Disposition: 08/08/23
Time of Disposition: 11:07
Presentation/result/management discussed w/ accepting MD/DO: Hospitalist
Discharge Problem:
Hyponatremia
Prescriptions:
No Action
risperidone [Risperdal] 3 MG tablet
3 mg PO HS
levothyroxine 25 MCG tablet
25 mcg PO DAILY
carbamazepine 200 MG tablet
200 mg PO BID
atorvastatin 80 mg tablet
80 mg PO HS
clopidogrel 75 mg tablet
75 mg PO HS
divalproex 500 mg tablet,delayed release (DR/EC)
500 mg PO BID
aspirin 81 mg Tablet,Chewable
81 mg PO DAILY
metoprolol succinate 25 mg tablet extended release 24 hr
25 mg PO BID
amlodipine [Norvasc] 10 MG tablet
10 mg PO DAILY
lisinopril 20 mg tablet
20 mg PO BID
spironolactone 25 mg tablet
25 mg PO DAILY
melatonin 5 mg Tablet
5 mg PO HS PRN (Reason: sleep)
acetaminophen 325 mg tablet
650 mg PO Q4HPRN PRN (Reason: mild pain)
furosemide 40 mg tablet
40 mg PO DAILY
hydralazine 25 mg tablet
25 mg PO BID
sodium chloride 1,000 mg tablet,soluble
1,000 mg PO BID
Referrals:
Reinaldo Beyer MD [Family Provider] -
Interventions
Interventions:
*Risk Screen - Suicide Last Done: 08/08/23 10:37
*General Assessment Last Done: 08/08/23 10:34
ED- Fall Risk Assessment Last Done: 08/08/23 10:36
*ED COVID-19 Vaccine History Last Done: 08/08/23 10:37
Discharge Date and Time
Print Language: MALAWIAN
[2023-08-08 10:46] LABS: ALT (SGPT) 27 U/L (0-50); AST (SGOT) 25 U/L (17-59); Albumin 4.5 g/dl (3.5-5.0); Alkaline Phosphatase 73 U/L (38-126); Blood Urea Nitrogen 2 mg/dl (9-20); Calcium 8.9 mg/dl (8.4-10.2); Carbon Dioxide 25 mmol/L (22-30); Chloride 78 mmol/L (98-107); Glucose 109 mg/dl (70-99); Potassium 4.7 mmol/L (3.5-5.1); Sodium 110 mmol/L (135-145); Total Bilirubin 0.6 mg/dl (0.2-1.3); Total Protein 6.8 g/dl (6.3-8.2); eGFR > 60.00
[2023-08-08] MEDS: SODIUM CHLORIDE 3% 250 IV (11:46)
--- NOTE | 2023-08-08 12:59 | W.CON.NEPH ---
Consultation
-
Date/Time Consultation Requested: 08/08/23 1250
Date/Time Consultation Performed: 08/08/23 1315
Requesting Provider: Sen Phillip
Performing Provider: Jessica Jeffries
Reason for Consultation: Hyponatremia
Medical History
-
Chief Complaint: Abnormal sodium out pt labs
History of Present Illness:
47-year-old male with history of chronic hyponatremia on FR, salt tab and lasix, hypertension on BB, hydralazine, lisinopril, spironolactone, schizophrenia on Resperdal, carbamazepine,h/o alcohol abuse now in remission [facility] found on outpatient labs, sent by PCP. What it appears Pt has difficulty to follow fluid restriction, fills 4-5pitchers daily yet he reports only drinking 5glasses of water.. Patient is asymptomatic at this
time. He denies any chest pain, shortness of breath, heart palpitations. He denies any headache, vision chnage, n/v. no diarrhea. No dizziness. He is unable to urinate in ER with retention 1300cc.
Patient denies any alcohol drinking. States that it has been many years since his last drink.
Of note�patient was admitted from 07/20-07/25 at for hyponatremia 119 and discharged with a Na of 131 and instructions for salt tabs, lasix, fluid restriction, saw f/u Dr Bermudez on 08/01 and recommended to review his psych meds with prescribing doc.
Labs returned now shows sodium of 110.
Past Medical History
HTN, DLD, CAD (s/p stent), hypothyroidism, schizophrenia, polycythemia, h/o alcohol abuse, smoker
Past Surgical History: Other (BM biopsy)
Social History
Tobacco: Smoker (1ppd)
Alcohol: Former
Drug: None
Living: Other (halfway)
Family History
Family History: Not Pertinent
Allergies / Home Medications
Allergy/AdvReac Type Severity Reaction Status Date / Time
codeine Allergy stiff Verified 08/08/23 10:05
muscles
�Medication �Instructions �Recorded �Confirmed �Type
carbamazepine 200 mg tablet 200 mg PO BID Neurological 08/22/20 08/08/23 History
Condition
levothyroxine 25 mcg tablet 25 mcg PO DAILY Thyroid 08/22/20 08/08/23 History
risperidone 3 mg tablet (Risperdal) 3 mg PO HS Neurological Condition 08/22/20 08/08/23 History
amlodipine 10 mg tablet (Norvasc) 10 mg PO DAILY Blood Pressure 07/07/23 08/08/23 History
aspirin 81 mg chewable tablet 81 mg PO DAILY Blood Clot 07/07/23 08/08/23 History
Prevention/Tx
atorvastatin 80 mg tablet 80 mg PO HS High Cholesterol 07/07/23 08/08/23 History
clopidogrel 75 mg tablet 75 mg PO HS Blood Clot 07/07/23 08/08/23 History
Prevention/Tx
divalproex 500 mg tablet,delayed 500 mg PO BID seizure and psych 07/07/23 08/08/23 History
release
metoprolol succinate 25 mg 25 mg PO BID Heart Condition 07/07/23 08/08/23 History
tablet,extended release 24 hr
lisinopril 20 mg tablet 20 mg PO BID Heart 07/21/23 08/08/23 History
Disease/Condition
spironolactone 25 mg tablet 25 mg PO DAILY Blood Pressure 07/21/23 08/08/23 History
acetaminophen 325 mg tablet 650 mg PO Q4HPRN PRN mild pain 08/08/23 08/08/23 History
furosemide 40 mg tablet 40 mg PO DAILY Fluid 08/08/23 08/08/23 History
Retention/Swelling
hydralazine 25 mg tablet 25 mg PO BID Blood Pressure 08/08/23 08/08/23 History
melatonin 5 mg tablet 5 mg PO HS PRN sleep 08/08/23 08/08/23 History
sodium chloride 1,000 mg soluble 1,000 mg PO BID Kidney Disease 04/30/24 04/30/24 History
tablet
Review of Systems
-
All complete 12 point ROS have been inquired and found negative other than stated in HPI
Physical Exam
Vital Signs
Vital Signs
Temp Pulse Resp BP Pulse Ox
97.8 F 63 14 116/96 97
08/08/23 10:05 08/08/23 12:30 08/08/23 12:30 08/08/23 12:01 08/08/23 12:30
Lab Results
WBC 7.7 10^3/uL (4.8-10.8) 08/08/23 10:12
RBC 5.29 10^6/uL (4.70-6.10) 08/08/23 10:12
Hgb 15.6 g/dL (13.0-18.0) 08/08/23 10:12
Hct 42.9 % (39.0-52.0) 08/08/23 10:12
Plt Count 414 10^3/uL (130-400) H 08/08/23 10:12
Sodium 110 mmol/L (135-145) L* 08/08/23 10:12
Potassium 4.7 mmol/L (3.5-5.1) 08/08/23 10:12
Chloride 78 mmol/L (98-107) L 08/08/23 10:12
Carbon Dioxide 25 mmol/L (22-30) 08/08/23 10:12
BUN 2 mg/dl (9-20) L 08/08/23 10:12
Creatinine 0.7 mg/dL (0.7-1.3) 08/08/23 10:12
eGFR > 60.00 08/08/23 10:12
Glucose 109 mg/dl (70-99) H 08/08/23 10:12
Calcium 8.9 mg/dl (8.4-10.2) 08/08/23 10:12
Albumin 4.5 g/dl (3.5-5.0) 08/08/23 10:12
Physical Exam
General: Awake, Alert, Oriented, AOx3, No Distress and Nontoxic
HEENT: EOMI and Anicteric
Respiratory: Clear
Cardiac: S1/S2 and Regular Rate/Rhythm
Abdomen: Soft, Nontender and Nondistended
Musculoskeletal: No Cyanosis and No Edema
Skin: No Rash
Neuro: Nonfocal/Grossly Intact
Psych: Mood/afflect pleasant and Appropriate
Data Reviewed
-
Radiology: Report Reviewed by me and Discussed with Patient
Labs: Labs Reviewed by me
Assessment/Plan
-
IMP:
Acute on chronic Hyponatremia 110
h/o CAD s/p stent
HTN (on metop, lisinopril, hydralazine, norvasc, spironolactone)
DLD
Hypothyroidism (last TSH wnl)
Schizophrenia
alcohol abuse (in remission)
active smoker
Plan:
A/w hyponatremia found in out pt labs, 115, repeat in ER at 110
acute on chronic -highly suspect from polydipsia
known SIADH from carbamazepine?, check TSH, old CXR was neg
check U osmo stat, need accurate UOP monitoring
mike being placed for retention
was started 3% saline in ER, q2h sodium checks
he is at risk of rapid correction if U osmo is low
suggest ICU monitoring till sodium stabilized
goal of correction strictly 6-8meq/day, tonight 115, by tomorrow am 117
maintain FR 48 ounces/day for now
hold lasix and salt tab in acute stage
BP are stable, cont home meds
d/w pt and primary
CC time spent 40min
--- NOTE | 2023-08-08 13:25 | EDRN ---
Patient notified that urine specimen is needed urgently, patient had tried multiple times unsuccessfully to provide sample, patient does not appear distended and offered no complaints.
Patient bladder scanned for >1330ml of urine after patient had not been able to provide urine sample. Dr. Parr notified and order received for mike placement. 14fr mike placed in ER- initial output is 1400ml of yellow urine.
--- NOTE | 2023-08-08 13:43 | HPS.HSE ---
Family Physician
-
Family Physician: Reinaldo Beyer
Chief Complaint
-
Abnormal laboratory blood work.
History of Present Illness
Patient is 47 years old male with schizophrenia, CAD, multiple admissions with hyponatremia who presents to the emergency room with findings of abnormal blood work. Particularly patient sodium was reported as low as 115 on outpatient blood work.
Upon presentation emergency room patient repeat BMP with sodium as low as 110. Patient presented to be neurologically stable with no complaints other than mild tremor on exam. He stated to be compliant with preadmission medication including oral
sodium tablets. Patient is on multiple psychiatric medications including Tegretol, Depakote, Risperdal.
Medical History
Past Medical History
Past Medical History: Reports CAD, HTN, Hypothyroidism and Psychiatric (Schizophrenia)
Past Surgical History: Reports None
Social History
Tobacco: Smoker
Alcohol: Former (Quit 2 years ago)
Drug: None
Personal: Single
Living: Other ([facility])
Employment: Not Employed
Family History
Family History: Not pertinent
Allergies / Home Medications
Allergies reflects when Allergies were last updated in [facility].
Home Medications with original date entered in [facility]
Allergy/Medication List:
Allergies
Allergy/AdvReac Type Severity Reaction Status Date / Time
codeine Allergy stiff Verified 08/08/23 10:05
muscles
Home Medications
carbamazepine 200 mg tablet 200 mg PO BID Neurological Condition 08/22/20
levothyroxine 25 mcg tablet 25 mcg PO DAILY Thyroid 08/22/20
risperidone 3 mg tablet (Risperdal) 3 mg PO HS Neurological Condition 08/22/20
amlodipine 10 mg tablet (Norvasc) 10 mg PO DAILY Blood Pressure 07/07/23
aspirin 81 mg chewable tablet 81 mg PO DAILY Blood Clot Prevention/Tx 07/07/23
atorvastatin 80 mg tablet 80 mg PO HS High Cholesterol 07/07/23
clopidogrel 75 mg tablet 75 mg PO HS Blood Clot Prevention/Tx 07/07/23
divalproex 500 mg tablet,delayed release 500 mg PO BID seizure and psych 07/07/23
metoprolol succinate 25 mg tablet,extended release 24 hr 25 mg PO BID Heart Condition 07/07/23
lisinopril 20 mg tablet 20 mg PO BID Heart Disease/Condition 07/21/23
spironolactone 25 mg tablet 25 mg PO DAILY Blood Pressure 07/21/23
acetaminophen 325 mg tablet 650 mg PO Q4HPRN PRN mild pain 08/08/23
furosemide 40 mg tablet 40 mg PO DAILY Fluid Retention/Swelling 08/08/23
hydralazine 25 mg tablet 25 mg PO BID Blood Pressure 08/08/23
melatonin 5 mg tablet 5 mg PO HS PRN sleep 08/08/23
sodium chloride 1,000 mg soluble tablet 1,000 mg PO BID Kidney Disease 08/08/23
Review of Systems
-
A 12 point ROS was completed and negative except as noted: Yes
Physical Exam
Vital Signs
Vital Signs
Temp Pulse Resp BP Pulse Ox
97.8 F 63 14 116/96 97
08/08/23 10:05 08/08/23 12:30 08/08/23 12:30 08/08/23 12:01 08/08/23 12:30
Physical Exam
General: Well Developed, Well Nourished and No Apparent Distress
HEENT: NormoCephalic, Moist mucous membranes and Atraumatic
Respiratory: Clear
Cardiac: S1/S2 and Regular Rhythm; No Murmur or Rub
GI: Soft, Non Tender, Non Distended and Normal Bowel Sounds; No Organomegaly
Rectal: Deferred by Provider
Musculoskeletal: No Clubbing, No Cyanosis and No Edema
Skin: No Rash
Neuro: Awake, Alert, Oriented, AO x 3, Nonfocal/grossly intact and Tremors (Mild upper extremity tremor)
Laboratory Results
-
08/08/23 10:12
08/08/23 10:12
Laboratory Results
Total Bilirubin 0.6 mg/dl (0.2-1.3) 08/08/23 10:12
AST 25 U/L (17-59) 08/08/23 10:12
ALT 27 U/L (0-50) 08/08/23 10:12
Alkaline Phosphatase 73 U/L (38-126) 08/08/23 10:12
Data Reviewed
-
Lab Data: Labs Reviewed by me
Impression/Plan
-
IMPRESSION:
Recurrent severe hyponatremia sodium level 110.
PLAN:
CAD status post stent
Essential hypertension
Dyslipidemia
Hypothyroidism on replacement
Schizophrenia.
Former alcohol use disorder sober over 2 years.
Active smoker.
Plan:
Severe hyponatremia sodium 110 upon presentation
Admit to ICU
Fortunately patient is not symptomatic other than mild tremor that could be related to his psychiatric medication regimen.
States to be compliant with oral diuretic and SoluTab as outpatient.
If reliable, denies excessive water intake, although with reasonable risk factors given his psychiatric condition.
Most recent admission with hyponatremia was consistent with high ADH state.
Check urine osmolarity and urine sodium BHUMIKA.
Patient was not able to urinate while in ED with the bladder scan 1300 mL
Order for Hutchinson catheter to be placed to collect urine studies.
Initiated on hypertonic solution while in ED need to monitor closely in ICU settings given reasonable risk for overcorrection in case of water intoxication.
BMP every 2 hours.
Refresh TSH.
Nephrology consultation
CAD with stent.
Continue preadmission DAPT and statin.
Continue beta-santana
Essential hypertension
Continue preadmission metoprolol, lisinopril, hydralazine
Hold furosemide and spironolactone pending further workup for hyponatremia
Schizophrenia
Psychiatric status stable upon presentation
Continue Percocet and carbamazepine. Check levels
Continue Risperdal
May need psychiatric input on adjustment of psychiatric regimen given recurrent admissions with hyponatremia
Former alcohol use disorder states to be sober over 2 years
Tobacco use disorder. Counseled on quitting. May need nicotine patch.
Full code
DVT prophylaxis heparin.
[2023-08-08 14:08] LABS: Urine Albumin Negative (Neg - Trace); Urine Bilirubin Negative (Negative); Urine Character Clear (Clear); Urine Glucose Negative (Negative); Urine Ketone Negative (Negative); Urine Leukocyte Negative (Negative); Urine Nitrite Negative (Negative); Urine Occult Blood Negative (Negative); Urine Urobilinogen Negative (Neg - 1+)
[2023-08-08 14:09] LABS: Urine Color Straw
[2023-08-08 14:15] LABS: Osmolality Serum 116 mOsm/kg (275-300)
[2023-08-08 14:22] LABS: Urine Sodium 28 mmol/L (30-90)
--- NOTE | 2023-08-08 15:39 | PTCARENOTE ---
pt [id number]. flat affect. forgetful. states no pain. asking for a nicotine patch. md made aware. 3% saline running as ordered. mike cath in place for retention. bed alarm on pt asked pt to call if he needs to get up.
[2023-08-08 15:43] LABS: INR 1.18; PT 14.8 Sec (11.4-14.6)
[2023-08-08 15:47] LABS: Magnesium 1.7 mg/dl (1.6-2.3)
--- NOTE | 2023-08-08 15:50 | CON.INTV ---
Consultation
Consultation Request
Date/Time Consultation Requested: 08/08/2023
Date/Time Consultation Performed: 08/08/2023
Requesting Provider: Dr. Parr
Performing Provider: Dr. Sudheer Stewart
Reason for Consultation: Severe hyponatremia
Medical History
-
History of Present Illness:
47-year-old man with history of schizophrenia, coronary artery disease, known history of hyponatremia with multiple admissions, presented to the emergency room after he was found to have sodium of 110 on laboratory workup.
Patient denies any acute complaints. Denies nausea, vomiting, lethargy, blurry vision.
In the outpatient setting patient is on multiple psychoactive medications including Tegretol, Depakote and Risperdal.
He reports compliant with regimen.
Denies any leg edema.
Denies shortness of breath.
Denies diarrhea.
Patient denies excessive fluid ingestion.
Past Medical History
Past Medical History: Other (See assessment and plan section)
Social History
Tobacco: Smoker
Alcohol: Former (Quit 2 years ago)
Drug: None
Personal: Single
Living: Other (correction)
Employment: Not Employed
Family History
Family History: Reviewed & Not Pertinent
Allergies / Home Medications
Allergies
Allergy/AdvReac Type Severity Reaction Status Date / Time
codeine Allergy stiff Verified 08/08/23 10:05
muscles
Home Medications
�Medication �Instructions �Recorded �Confirmed �Last Taken �Type
carbamazepine 200 mg tablet 200 mg PO BID Neurological 08/22/20 08/08/23 08/08/23 History
Condition
levothyroxine 25 mcg tablet 25 mcg PO DAILY Thyroid 08/22/20 08/08/23 08/08/23 History
risperidone 3 mg tablet (Risperdal) 3 mg PO HS Neurological Condition 08/22/20 08/08/23 08/07/23 History
amlodipine 10 mg tablet (Norvasc) 10 mg PO DAILY Blood Pressure 07/07/23 08/08/23 08/08/23 History
aspirin 81 mg chewable tablet 81 mg PO DAILY Blood Clot 07/07/23 08/08/23 08/08/23 History
Prevention/Tx
atorvastatin 80 mg tablet 80 mg PO HS High Cholesterol 07/07/23 08/08/23 08/07/23 History
clopidogrel 75 mg tablet 75 mg PO HS Blood Clot 07/07/23 08/08/23 08/07/23 History
Prevention/Tx
divalproex 500 mg tablet,delayed 500 mg PO BID seizure and psych 07/07/23 08/08/23 08/08/23 History
release
metoprolol succinate 25 mg 25 mg PO BID Heart Condition 07/07/23 08/08/23 08/08/23 History
tablet,extended release 24 hr
lisinopril 20 mg tablet 20 mg PO BID Heart 07/21/23 08/08/23 08/08/23 History
Disease/Condition
spironolactone 25 mg tablet 25 mg PO DAILY Blood Pressure 07/21/23 08/08/23 08/08/23 History
acetaminophen 325 mg tablet 650 mg PO Q4HPRN PRN mild pain 08/08/23 08/08/23 Unknown History
furosemide 40 mg tablet 40 mg PO DAILY Fluid 08/08/23 08/08/23 08/08/23 History
Retention/Swelling
hydralazine 25 mg tablet 25 mg PO BID Blood Pressure 08/08/23 08/08/23 08/08/23 History
melatonin 5 mg tablet 5 mg PO HS PRN sleep 08/08/23 08/08/23 Unknown History
sodium chloride 1,000 mg soluble 1,000 mg PO BID Kidney Disease 08/08/23 08/08/23 08/08/23 History
tablet
Review of Systems
-
History Source: Patient
All other systems: Negative unless noted
Vitals / Labs / Diagnostic Testing
Vital Signs
Temp Pulse Resp BP Pulse Ox
97.8 F 63 19 131/74 94
08/08/23 10:05 08/08/23 14:00 08/08/23 14:00 08/08/23 14:00 08/08/23 14:00
Lab Data
08/08/23 10:12
Laboratory Results
08/08/23
15:11
PT 14.8 H
INR 1.18
APTT 41.0 H
Diagnostic Testing:
Physical Exam
-
HEENT: Normocephalic
Cardiovascular: S1/S2
Respiratory: Clear and Non-Labored Respirations
GI: Soft
Neurology: Awake, Alert, Oriented, AO x 3 and No Motor Deficits
Skin: Warm
General: Respiratory Distress (n)
Assessment
-
Severe hyponatremia sodium 110
Differential diagnoses include psychogenic polydipsia/SIADH.
Conditions present prior admission:
Coronary artery disease with history of a stent
Hypertension
Hyperlipidemia
Hypothyroidism
Schizophrenia
Former alcohol use
Active smoker
Assessment and plan:
Severe hyponatremia but patient seems to be relatively asymptomatic.
Records reviewed, recently discharged from the hospital was consistent with a ADH. Possibly related to psychiatric medications.
Nephrology has been consulted urgently
Urine electrolytes and osmolality will be checked
Hutchinson catheter has been placed as the patient was unable to void.
Hypertonic solution has been started: Careful correction per protocol, frequent BMPs every 2 hours
First 24 hours up to 115.
Correction up in 6-8 meq acute events in the first 24 hours.
Will wait for nephrology input
-
Frequent neurological checks.
-
Fluid restriction for now.
-
Hypertension: Controlled.
Diuretics will be on hold for now
Okay to continue antihypertensive
Hold diuretics
-
Schizophrenia: Seems to be compensated.
Medication levels will be checked
May need psychiatry evaluation at some point.
-
Tabbaco abuse, nicotine patch.
-
DVT prophylaxis with subcu heparin.
-
[2023-08-08 15:52] LABS: Tegretol (Carbamazepine) 8.7 ug/ml (4-12)
[2023-08-08 15:56] LABS: Blood Urea Nitrogen 3 mg/dl (9-20); Calcium 8.6 mg/dl (8.4-10.2); Carbon Dioxide 19 mmol/L (22-30); Chloride 85 mmol/L (98-107); Estimated Creatinine Clearance 124 ml/min; Glucose 108 mg/dl (70-99); Potassium 4.6 mmol/L (3.5-5.1); Sodium 115 mmol/L (135-145); eGFR > 60.00
[2023-08-08] MEDS: NICODERM TRANSDERMAL 21 MG TRANSDERM (16:11)
[2023-08-08 17:31] LABS: Osmolality Urine 116 mOsm/kg (300-900)
[2023-08-08 17:49] LABS: Blood Urea Nitrogen 3 mg/dl (9-20); Calcium 8.6 mg/dl (8.4-10.2); Carbon Dioxide 20 mmol/L (22-30); Chloride 85 mmol/L (98-107); Estimated Creatinine Clearance 124 ml/min; Glucose 145 mg/dl (70-99); Potassium 4.2 mmol/L (3.5-5.1); Sodium 116 mmol/L (135-145); eGFR > 60.00
[2023-08-08] MEDS: D5W 1000 IV (18:16)
[2023-08-08] MEDS: DDAVP 50.5 MCG IV (19:06)
[2023-08-08] MEDS: TOPROL XL 25 MG PO (19:12)
[2023-08-08] MEDS: APRESOLINE 25 MG PO (19:12)
[2023-08-08] MEDS: ZESTRIL 20 MG PO (19:12)
[2023-08-08] MEDS: HEPARIN 5000 UNITS SC (19:13)
[2023-08-08] MEDS: TEGRETOL 200 MG PO (19:13)
[2023-08-08] MEDS: DEPAKOTE (12 HR RELEASE) 500 MG PO (19:13)
--- NOTE | 2023-08-08 20:06 | PTCARENOTE ---
rec`d pt at 1900 AAOx3. flat affect. forgetful at times, but pleasant. SR to SB on monitor. q2h BMPs continued. left FA 22 running w/ D5W going at 100/hr. clear lung sounds, RA satting at 95%. mike in place for acute retention. draining yellow
urine. bruising on lower abdomen. call reyes in reach. safe environment maintained.
[2023-08-08 21:02] LABS: Blood Urea Nitrogen 6 mg/dl (9-20); Calcium 7.9 mg/dl (8.4-10.2); Carbon Dioxide 20 mmol/L (22-30); Chloride 89 mmol/L (98-107); Estimated Creatinine Clearance 124 ml/min; Glucose 141 mg/dl (70-99); Potassium 3.8 mmol/L (3.5-5.1); Sodium 116 mmol/L (135-145); eGFR > 60.00
[2023-08-08] MEDS: PLAVIX 75 MG PO (21:34)
[2023-08-08] MEDS: RISPERDAL 3 MG PO (21:34)
[2023-08-08] MEDS: LIPITOR 80 MG PO (21:34)
[2023-08-09] VITALS (27 sets, daily range): BP systolic 95–150; BP diastolic 63–89; PULSE 70; O2SAT 95; BMI 23.3
[2023-08-09 01:31] LABS: Blood Urea Nitrogen 7 mg/dl (9-20); Calcium 7.7 mg/dl (8.4-10.2); Carbon Dioxide 19 mmol/L (22-30); Chloride 89 mmol/L (98-107); Estimated Creatinine Clearance 124 ml/min; Glucose 122 mg/dl (70-99); Potassium 3.9 mmol/L (3.5-5.1); Sodium 115 mmol/L (135-145); eGFR > 60.00
[2023-08-09 03:38] LABS: % Basophils 0.8 % (0-2); % Eosinophils 2.7 % (0-6); % Immature Granulocytes 1.1 % (0-0.5); % Lymphocytes 25.8 % (20.5-51.1); % Monocytes 9.3 % (1.7-9.3); % Neutrophils 60.3 % (42.2-75.2); Absolute Basophils 0.1 10^3/uL (0-0.2); Absolute Eosinophils 0.3 10^3/uL (0-0.7); Absolute Immature Granulocytes 0.1 10^3/uL (0-0.05); Absolute Lymphocytes 2.5 10^3/uL (1.2-3.4); Absolute Monocytes 0.9 10^3/uL (0.1-0.6); Absolute Neutrophils 5.8 10^3/uL (1.4-6.5); Hematocrit 37.8 % (39.0-52.0); Hemoglobin 13.5 g/dL (13.0-18.0); Mean Corp Hgb Conc. 35.7 g/dL (33.0-37.0); Mean Corpuscular Hgb 29.3 pg (27.0-31.0); Mean Corpuscular Volume 82.2 fL (80.0-94.0); Mean Platelet Volume 9.3 fL (7.4-10.4); Nucleated Red Blood Cells % 0 % (-); Platelet Count 318 10^3/uL (130-400); Red Cell Dist. Width 13.8 % (11.5-14.5); White Blood Cell Count 9.6 10^3/uL (4.8-10.8)
--- NOTE | 2023-08-09 03:42 | PTCARENOTE ---
pt reassessed. no changes in pt assessment.
[2023-08-09] MEDS: D5W 1000 IV (04:13)
[2023-08-09 04:14] LABS: Blood Urea Nitrogen 7 mg/dl (9-20); Calcium 7.4 mg/dl (8.4-10.2); Carbon Dioxide 22 mmol/L (22-30); Chloride 89 mmol/L (98-107); Estimated Creatinine Clearance 124 ml/min; Glucose 118 mg/dl (70-99); Potassium 3.9 mmol/L (3.5-5.1); Sodium 114 mmol/L (135-145); eGFR > 60.00
[2023-08-09] MEDS: SYNTHROID 25 MCG PO (05:23)
[2023-08-09] MEDS: ZESTRIL 20 MG PO ×2 (08:00→19:36)
[2023-08-09] MEDS: LOW STRENGTH ASPIRIN 81 MG PO (08:00)
[2023-08-09] MEDS: DEPAKOTE (12 HR RELEASE) 500 MG PO ×2 (08:00→19:36)
[2023-08-09] MEDS: TEGRETOL 200 MG PO (08:00)
[2023-08-09] MEDS: HEPARIN 5000 UNITS SC (08:01)
[2023-08-09] MEDS: NORVASC 10 MG PO (08:01)
[2023-08-09] MEDS: NICODERM TRANSDERMAL 21 MG TRANSDERM (08:01)
[2023-08-09] MEDS: APRESOLINE 25 MG PO ×2 (08:03→19:37)
--- NOTE | 2023-08-09 08:11 | W.PN.NEPH.PH ---
Today's Communication / Plan
-
q3hr bmp
no more desmopressin and hypotonic ivfs off now
maintain fluid restriction
Assessment/Plan
-
IMP:
Acute on chronic Hyponatremia 110
h/o CAD s/p stent
HTN (on metop, lisinopril, hydralazine, norvasc, spironolactone)
DLD
Hypothyroidism (last TSH wnl)
Schizophrenia
alcohol abuse (in remission)
active smoker
Plan:
A/w hyponatremia found in out pt labs, 115, repeat in ER at 110, now 114 , pending 6AM result
acute on chronic -highly suspect from polydipsia
known SIADH from carbamazepine?, check TSH, old CXR was neg
checked U osmo 116 consistent with polydipsia
mike being placed for retention uop ~700cc
was started 3% saline in ER, q2h sodium checks
he is at risk of rapid correction if U osmo is low
suggest ICU monitoring till sodium stabilized
maintain FR 48 ounces/day for now
hold lasix and salt tab in acute stage
BP are stable, cont home meds
d/w pt and primary
CC time spent 32min
-
-
Date of Service: August 09, 2023
CC / HPI / ROS
-
Chief Complaint:
Hyponatremia
History of Present Illness:
Serum sodium down to 114 earlier this
Hemodynamically stable
Review of Systems:
Mental status stable
Nonoliguric via Mike
No fever
Labs
-
Labs:
WBC 9.6 10^3/uL (4.8-10.8) 08/09/23 03:31
RBC 4.60 10^6/uL (4.70-6.10) L 08/09/23 03:31
Hgb 13.5 g/dL (13.0-18.0) 08/09/23 03:31
Hct 37.8 % (39.0-52.0) L 08/09/23 03:31
Plt Count 318 10^3/uL (130-400) D 08/09/23 03:31
eGFR > 60.00 08/09/23 03:31
Albumin 4.5 g/dl (3.5-5.0) 08/08/23 10:12
Physical Exam
-
Vital Signs:
Vital Signs
Temp Pulse Resp BP Pulse Ox
98.5 F 54 14 121/79 95
08/09/23 07:36 08/09/23 06:30 08/09/23 06:30 08/09/23 06:00 08/09/23 06:30
Cardiovascular:: Regular rate and rhythm
Respiratory:: Bilateral: CTA
Lung Excursion:: Normal
Abdomen:: Nontender and Soft
Bowel Sounds:: Normal
Extremity Edema:: None: Bilateral:
Mike Catheter: Yes
--- NOTE | 2023-08-09 08:36 | W.PN.INTV ---
Today's Communication / Plan
Recommendations
Serum sodium correction goal today not more than 117 mEq by midnight.
BMP Q 3 hours
Frequent neurologic checks
Monitor and correct electrolytes.
Assessment
-
Severe hyponatremia sodium 110
Differential diagnoses include psychogenic polydipsia/SIADH.
Conditions present prior admission:
Coronary artery disease with history of a stent
Hypertension
Controlled
Hyperlipidemia
Hypothyroidism
Schizophrenia
Compensated
Former alcohol use
Active smoker
Assessment and plan:
Presentation with a symptomatic severe hyponatremia with sodium 110.
- Given low urine osmolality and low urine sodium level, this is likely psychogenic polydipsia VS SIADH from poor adherence to fluid restriction and salt tabs outpatient. Other likely etiology include but not limited to psych medication side
effects.
- Records reviewed, recently discharged from the hospital was consistent with a ADH.
- Patient was treated 3% normal saline x 2 in the ED with overcorrection of sodium level to 116. Subsequently received 2 mcg of desmopressin with repeat sodium level now at 112.
- Careful Na correction, 6-8 meq/day per protocol, frequent BMPs every 3 hours. Goal sodium level of not more than 117 by midnight.
- Fluid restriction, 48 ounces/day per nephrology.
- Nephrology has been consulted and following.
- Monitor serum/urine electrolytes and osmolality.
- Hold Lasix and salt tabs
- Maintain Hutchinson catheter as the patient unable to void.
- Frequent neurological checks.
Hypertension:
- Controlled.
- Hold diuretics.
- Okay to continue home antihypertensives.
Hypothyroidism:
- TSH within normal limits
Schizophrenia:
- Seems to be compensated.
- Monitor Pain and Valproic Acid Levels within Normal Limits.
- Consider psych evaluation upon discharge.
Active Tabbaco abuse
- Nicotine patch.
- Smoking cessation advised.
DVT prophylaxis: Lovenox
Subjective Dataa
Subjective Data
Date of Service:
Date of Service: August 09, 2023
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
Subjective:
There was no significant events overnight. Patient seen today in bed answering questions appropriately. Alert oriented x 3 with flat affect and no focal neurologic deficits.
Review of Systems
General: Fever (Negative), Chills (Negative) and Pain (Negative)
HEENT: Thrush (Negative)
Cardiopulmonary: Dyspnea (Negative), Cough (Negative), Chest Pain (Negative) and Edema (Negative)
GI: Abdominal Pain (Negative), Nausea (Negative) and Vomiting (Negative)
Neuro: Headache (Negative), Dizziness (Negative) and Weakness (Negative)
Genitourinary: Hutchinson
Objective Data
Data Reviewed
Vital Signs / I&O / Oxygen:
Vital Signs
Temp Pulse Resp BP Pulse Ox
98.5 F 54 14 121/79 95
08/09/23 07:36 08/09/23 06:30 08/09/23 06:30 08/09/23 06:00 08/09/23 06:30
Intake and Output
08/08/23 08/09/23 08/10/23
06:59 06:59 06:59
Intake Total 1180 / 1180
Output Total 775 / 775
Balance 405 / 405
SaO2 95
Physical Exam
General: Comfortable
HEENT: Normocephalic
Cardiovascular: S1-S2, Regular Rhythm and Murmur (Negative)
Respiratory: Clear and Non-Labored Respirations
GI: Soft, Non Distended, Non Tender and Normal Bowel Sounds
Neurology: Awake, Alert and Oriented
Skin: Warm and Dry
Labs/Micro/Reports
Lab Data
08/09/23 03:31
Laboratory Results
08/08/23
15:11
PT 14.8 H
INR 1.18
APTT 41.0 H
--- NOTE | 2023-08-09 09:21 | PTCARENOTE ---
Pt received in bed @ 0700. AAOx3. Flat affect. Schizophrenia diagnosis. Pt with slight observed tremors. Sinus sherice/Sinus rhythm on air sampling and monitoring. HR 50s - 70s. Peripheral pulses palpable. No edema observed. SaO2 95% on room air. Lungs clear to
auscultation. Pt without documented BM since admission. Bowel sounds (+). Hutchinson catheter draining margarita urine. D5W @ 50ml/hr discontinued by Nephrology.
[2023-08-09 09:35] LABS: Blood Urea Nitrogen 7 mg/dl (9-20); Calcium 8.7 mg/dl (8.4-10.2); Carbon Dioxide 24 mmol/L (22-30); Chloride 82 mmol/L (98-107); Estimated Creatinine Clearance 125 ml/min; Glucose 95 mg/dl (70-99); Potassium 4.6 mmol/L (3.5-5.1); Sodium 112 mmol/L (135-145); eGFR > 60.00
[2023-08-09] MEDS: TOPROL XL 25 MG PO ×2 (10:01→19:36)
--- NOTE | 2023-08-09 11:31 | PTCARENOTE ---
Pt reassessed. No changes observed. Sodium resulted 112. Dr. Campbell, Code And Test Clerk, notified. Q3H BMP's. Physical therapy in to work with patient.
--- NOTE | 2023-08-09 12:14 | W.PN.HOSP.TC ---
Today's Communication/Plan
-
Continue free water restriction
Monitor sodium level closely
Assessment / Plan
Assessment / Plan
IMPRESSION:
Recurrent severe acute on chronic hyponatremia sodium level 110.
Acute intervention with PVR over 600
PLAN:
CAD status post stent
Essential hypertension
Dyslipidemia
Hypothyroidism on replacement
Schizophrenia.
Former alcohol use disorder sober over 2 years.
Active smoker.
Plan:
Severe hyponatremia sodium 110 upon presentation
Admit to ICU
Fortunately patient is not symptomatic other than mild tremor that could be related to his psychiatric medication regimen.
States to be compliant with oral diuretic and SoluTab as outpatient.
If reliable, denies excessive water intake, although with reasonable risk factors given his psychiatric condition.
Most recent admission with hyponatremia was consistent with high ADH state.
Urine osmolarity is low, consistent with water intoxication.
Possibly component of SIADH secondary to psychiatric medications including carbamazepine.
TSH within normal limits
Initiated on 3% in ED.
Status post single dose of DDAVP on 08/07
Monitor neurologic status and sodium closely in ICU settings.
Free water restriction with 48 ounces
Discussed with nephrology
Acute urine retention
Hutchinson catheter placed in ED on 08/07
Plan is for voiding trial once sodium level stabilized.
CAD with stent.
Continue preadmission DAPT and statin.
Continue beta-santana
Essential hypertension
Continue preadmission metoprolol, lisinopril, hydralazine
Hold furosemide and spironolactone pending further workup for hyponatremia
Schizophrenia
Psychiatric status stable upon presentation
Continue Percocet and carbamazepine. Check levels
Continue Risperdal
Psychiatric input on adjustment of psychiatric regimen given recurrent admissions with hyponatremia
Former alcohol use disorder states to be sober over 2 years
Tobacco use disorder. Counseled on quitting. May need nicotine patch.
Full code
DVT prophylaxis heparin.
Anticipated Discharge: > 48 hours
Subjective/Interval History
-
Date of Service: August 09, 2023
Objective Data
-
Labs:
Laboratory Results
08/09/23 08/09/23 08/09/23
00:38 03:31 08:23
WBC 9.6
Hgb 13.5
Hct 37.8 L
Plt Count 318 D
Sodium 115 L* 114 L* 112 L*
Potassium 3.9 3.9 4.6
Chloride 89 L 89 L 82 L
Carbon Dioxide 19 L 22 24
BUN 7 L 7 L 7 L
Creatinine 0.5 L 0.5 L 0.6 L
Glucose 122 H 118 H 95
Calcium 7.7 L 7.4 L 8.7
08/09/23 08/09/23 08/09/23
11:13 14:00 17:00
WBC
Hgb
Hct
Plt Count
Sodium Pending Pending Pending
Potassium Pending Pending Pending
Chloride Pending Pending Pending
Carbon Dioxide Pending Pending Pending
BUN Pending Pending Pending
Creatinine Pending Pending Pending
Glucose Pending Pending Pending
Calcium Pending Pending Pending
08/09/23 08/09/23
20:00 23:00
WBC
Hgb
Hct
Plt Count
Sodium Pending Pending
Potassium Pending Pending
Chloride Pending Pending
Carbon Dioxide Pending Pending
BUN Pending Pending
Creatinine Pending Pending
Glucose Pending Pending
Calcium Pending Pending
Vital Signs:
Vital Signs
Temp Pulse Resp BP Pulse Ox
98.9 F 70 18 150/89 95
08/09/23 11:11 08/09/23 09:45 08/09/23 09:45 08/09/23 09:00 08/09/23 10:04
I&O
08/08/23 08/09/23 08/10/23
06:59 06:59 06:59
Intake Total 1180 / 1245 65
Output Total 775 / 775
Balance 405 / 470
Physical Exam
-
General: Well Developed and No Apparent Distress
HEENT: Normocephalic, Atraumatic and Moist Mucous Membranes
Respiratory: Clear to Auscultation
Cardiac: Regular Rhythm and S1/S2; Negative Murmur, Rub or Gallop
GI: Soft, Nontender, Nondistended and Normal Bowel Sounds; Negative Organomegaly
Rectal: Deferred by Provider
Musculoskeletal: No Clubbing, No Cyanosis and No Edema
Skin: Negative Rash
Neuro: Awake, Alert, Oriented, AO x 3 and Nonfocal/Grossly Intact
[2023-08-09 12:47] LABS: Blood Urea Nitrogen 8 mg/dl (9-20); Calcium 8.8 mg/dl (8.4-10.2); Carbon Dioxide 24 mmol/L (22-30); Chloride 82 mmol/L (98-107); Estimated Creatinine Clearance 125 ml/min; Glucose 104 mg/dl (70-99); Potassium 4.4 mmol/L (3.5-5.1); eGFR > 60.00
[2023-08-09 12:49] LABS: Sodium 112 mmol/L (135-145)
--- NOTE | 2023-08-09 13:10 | CM ---
CM following re: discharge planning.
Discussed in rounds, reviewed pt' chart, met with pt and pt's mother at bedside, spoke to pt's sister Shannon [phone] and spoke to [facility] Blended shoe caser Briana [phone].
Pt is a 47 year old male, admitted with primary dx of Hyponatremia.
Pt reports he lives in [place] [facility] managed [facility], has 2 supportive siblings and a mother who cannot take care of the pt at home. Pt is independent with functional ability, does not use any mobile devices. Pt is known to [facility] for
medication management.
Pt's sister Shannon brought to me her concerns regarding pt need higher level of care and [facility] cannot provide it and pt's sister suggested whether or not pt can go to a SNF for a short term rehab.
PT and OT evaluations noted - pt is independent with functional ability, home PT vs no needs recommended. Pt's sister is aware, expressed her understanding. CM discussed with pt's sister resources that can be explored by [facility] team
including PHP program to manage medication, increased ICM involvement, closer coordinations between psychiatrist and pt's PCP.
CM spoke to pt's blended shoe caser Briana [phone] and she brought to me her frustrating feelings regarding pt needs higher level of care and [facility] is not equipped for that. ANDRE Warren has been notified that pt is independent
with functional ability, does not qualified for SNF/prison level of care and CM suggested to looking for ant possible resources to provide necessary supervision for the pt at [facility]. PHP program suggested to manage pt's
medications especially psychotropic including changing/adjusting pt's medications to limit a side effect. Developing more structured environment also suggested that can be done within [facility]. CM suggested to blended ANDRE Warren to
develop a care plan to address specific pt's needs. CM suggested that [facility] will continue services for pt at home including medication management and coordination with [facility] team.
CM will suggest to psychiatrist to recommend PHP program at [facility] for adjusting and management medications.
PCP: Reinaldo Beyer
Pharmacy: [facility] @ [facility], [address] [place] [address], [place], [facility]
D/C plan: return back to his living arrangements [facility] boarding home with Baudilio PATEL and coordination with [facility] team regarding medications management vs PHP at [facility].
CM will follow with discharge plan updates as hospitalization progresses
--- NOTE | 2023-08-09 13:56 | W.PN.UPDATE ---
Update Note
Progress Note Update
patient seen chart reviewed. spoke with nursing and cm. mother at bedside. i also spoke to his cm tenzin woodard. the patient is a 47 year old male w dx of schizophrenia who has been rx at [facility] and lives at [facility] [place] halfway. his mother
and he report that he has been doing pretty well but he has been dogged by hyponatremia. both say he does not consume more than the recommended amount of fluids/h20. ms woodard has reported her concern that perhaps his psych meds have contributed
to the hyponatremia but mr lamar has been very reluctant to make any changes as both he and mom feel this med regimen has been very successful. mr lamar has not been exactly cooperative about following up with bloodwork in a timely fashion. he was
referred to after bloodwork revealed a serum sodium in the low teens which has not changed signficantly since admit. it is now 112. he is in no psychic distress. he was seated very calmly at bedside when i arrived and was cooperative and
pleasant if not w a s/w constricted affect during out visit. he denies issues w sleep appetite. he can enjoy self. energy level nl for him. no c/o psychotic sx. current meds risperdal 3 mg q hs depakote 500 bid and tegretol 200 mg bid. levels
are 81 and 8+ respectively
past psych [facility]x [facility] many years [facility] when first became ill no hospitalizations according to pat and mom in many years. lives a [facility] and is followed by ms woodard at [facility]
family hx there is a fh of psychiatric illness
substance abuse cigs. otherwise none
social mom and two sisters are supportive resides at [facility]
mse alert ox3 cooperative and pleasant affect constricted mood neutral no si no hi no overt psychosis low aver intellect? insight judgment fair
dx schizophrenia by hx
plan tegretol depakote and risperdal all have case reports of hyponatremia associated. ms woodard had instructed him to dc tegretol which i agree with. will cut back to one tab q day for five days then dc. monitor sodium. i would guess if this
does not work consider taper of depakote. if he is truly schizophrenic the risperdal alone could suffice. sometimes florid psychotic sx dissipate with age and one is left w residua of schizophrenia. will peruse the [facility] record for other
important info later today. will follow
[2023-08-09] MEDS: LASIX 20 MG IV (14:09)
[2023-08-09 14:51] LABS: Blood Urea Nitrogen 10 mg/dl (9-20); Calcium 8.9 mg/dl (8.4-10.2); Carbon Dioxide 22 mmol/L (22-30); Chloride 83 mmol/L (98-107); Estimated Creatinine Clearance 125 ml/min; Glucose 105 mg/dl (70-99); Potassium 4.5 mmol/L (3.5-5.1); Sodium 114 mmol/L (135-145); eGFR > 60.00
[2023-08-09] MEDS: SODIUM CHLORIDE 3% 250 IV (16:00)
--- NOTE | 2023-08-09 17:02 | PTCARENOTE ---
Pt reassessed. No changes observed. Serial BMP's continue. Lasix 20mg IV administered. Voiding yellow into Hutchisnon catheter. New order for 3% Sodium Chloride infusing @ 20ml/hr.
[2023-08-09 18:12] LABS: Blood Urea Nitrogen 11 mg/dl (9-20); Calcium 8.8 mg/dl (8.4-10.2); Carbon Dioxide 22 mmol/L (22-30); Chloride 85 mmol/L (98-107); Estimated Creatinine Clearance 125 ml/min; Glucose 104 mg/dl (70-99); Potassium 4.5 mmol/L (3.5-5.1); Sodium 115 mmol/L (135-145); eGFR > 60.00
[2023-08-09] MEDS: LOVENOX 40 MG SC (19:08)
--- NOTE | 2023-08-09 20:01 | PTCARENOTE ---
Received patient in bed, AAOx3, following commands, denying pain, flat affect. Normal sinus/sinus sherice, 50s-70s. BP stable 120s/80s. No edema, weak pedal pulses bilaterally, normal radial pulses bilaterally. 95% on room air, lung sounds diminished
throughout. Patient ambulated to bathroom with no assist and tolerated well, had BM. Regular diet, patient requesting denture cream, provided. Hutchinson in place draining yellow urine. Skin intact, bruising on lower abdomen. PIVs WNL, patent, 3% saline
gtt ongoing. Patient able to make needs known, call reyes within reach.
[2023-08-09 20:52] LABS: Blood Urea Nitrogen 13 mg/dl (9-20); Calcium 8.7 mg/dl (8.4-10.2); Carbon Dioxide 22 mmol/L (22-30); Chloride 87 mmol/L (98-107); Estimated Creatinine Clearance 125 ml/min; Glucose 107 mg/dl (70-99); Potassium 4.5 mmol/L (3.5-5.1); Sodium 116 mmol/L (135-145); eGFR > 60.00
[2023-08-09] MEDS: RISPERDAL 3 MG PO (21:50)
[2023-08-09] MEDS: PLAVIX 75 MG PO (21:50)
[2023-08-09] MEDS: LIPITOR 80 MG PO (21:50)
[2023-08-09 23:50] LABS: Blood Urea Nitrogen 12 mg/dl (9-20); Calcium 8.8 mg/dl (8.4-10.2); Carbon Dioxide 22 mmol/L (22-30); Chloride 89 mmol/L (98-107); Estimated Creatinine Clearance 125 ml/min; Glucose 91 mg/dl (70-99); Potassium 4.8 mmol/L (3.5-5.1); Sodium 116 mmol/L (135-145); eGFR > 60.00
[2023-08-10] VITALS (14 sets, daily range): BP systolic 76–123; BP diastolic 51–78; BMI 22.4
--- NOTE | 2023-08-10 | PTCARENOTE ---
Patient assessment unchanged from previous, call reyes within reach.
--- NOTE | 2023-08-10 04:02 | PTCARENOTE ---
Addendum entered by Kim Mckeon RN 08/10/23 04:05:
Sodium 119, 3% saline bag finished, AGRONOMY SPECIALIST aware. No new orders.
Original Note:
Patient assessment unchanged from previous, labs sent.
[2023-08-10 04:03] LABS: Blood Urea Nitrogen 11 mg/dl (9-20); Calcium 8.7 mg/dl (8.4-10.2); Carbon Dioxide 20 mmol/L (22-30); Chloride 93 mmol/L (98-107); Estimated Creatinine Clearance 125 ml/min; Glucose 88 mg/dl (70-99); Potassium 4.7 mmol/L (3.5-5.1); Sodium 119 mmol/L (135-145); eGFR > 60.00
[2023-08-10] MEDS: SYNTHROID 25 MCG PO (05:48)
[2023-08-10] MEDS: LOW STRENGTH ASPIRIN 81 MG PO (08:22)
[2023-08-10] MEDS: TEGRETOL 200 MG PO (08:22)
[2023-08-10] MEDS: NORVASC 10 MG PO (08:23)
[2023-08-10] MEDS: DEPAKOTE (12 HR RELEASE) 500 MG PO ×2 (08:23→21:34)
[2023-08-10] MEDS: ZESTRIL 20 MG PO ×2 (08:23→21:27)
[2023-08-10] MEDS: APRESOLINE 25 MG PO ×2 (08:23→21:28)
[2023-08-10] MEDS: TOPROL XL PO (08:24)
[2023-08-10] MEDS: NICODERM TRANSDERMAL 21 MG TRANSDERM (08:24)
--- NOTE | 2023-08-10 08:37 | PTCARENOTE ---
report received, assessments per work list. assisted to bathroom, had loose stool(not seen, reported by patient). alert and oriented. flat affect. monitor sinus bradycardia, lungs diminished. abdomen round, nontender. hyperactive bowel sounds. no
edema. labs sent. oob to chair. chair alarm activated. call reyes in reach
--- NOTE | 2023-08-10 08:50 | W.PN.NEPH.PH ---
Today's Communication / Plan
-
Add back salt tablet
Electrolytes at 1500
Maintain fluid restrict
Assessment/Plan
-
IMP:
Acute on chronic Hyponatremia 110
h/o CAD s/p stent
HTN (on metop, lisinopril, hydralazine, norvasc, spironolactone)
DLD
Hypothyroidism (last TSH wnl)
Schizophrenia
alcohol abuse (in remission)
active smoker
Plan:
A/w hyponatremia found in out pt labs, 115, repeat in ER at 110, now 119, s/p 3 % given last evening
For transfer out of ICU
acute on chronic -highly suspect from polydipsia
known SIADH from carbamazepine?, check TSH, old CXR was neg
checked U osmo 116 consistent with polydipsia
mike being placed for retention uop ~1475cc
suggest ICU monitoring till sodium stabilized
maintain FR 48 ounces/day for now
Add back salt tablets today
BP are stable, continue home meds
Psychiatry suggesting titrating back Tegretol given recurrence of hyponatremia
Recheck lytes at 1500
-
-
Date of Service: August 10, 2023
CC / HPI / ROS
-
Chief Complaint:
Hyponatremia
History of Present Illness:
Serum sodium now at 119
Hemodynamically stable
Review of Systems:
Mental status stable
Nonoliguric via Mike
No fever
Labs
-
Labs:
WBC 9.6 10^3/uL (4.8-10.8) 08/09/23 03:31
RBC 4.60 10^6/uL (4.70-6.10) L 08/09/23 03:31
Hgb 13.5 g/dL (13.0-18.0) 08/09/23 03:31
Hct 37.8 % (39.0-52.0) L 08/09/23 03:31
Plt Count 318 10^3/uL (130-400) D 08/09/23 03:31
eGFR > 60.00 08/10/23 03:33
Albumin 4.5 g/dl (3.5-5.0) 08/08/23 10:12
Physical Exam
-
Vital Signs:
Vital Signs
Temp Pulse Resp BP Pulse Ox
98.0 F 48 12 123/76 97
08/10/23 07:42 08/10/23 08:24 08/10/23 06:00 08/10/23 08:23 08/10/23 06:00
Cardiovascular:: Regular rate and rhythm
Respiratory:: Bilateral: CTA
Lung Excursion:: Normal
Abdomen:: Nontender and Soft
Bowel Sounds:: Normal
Extremity Edema:: None: Bilateral:
Mike Catheter: Yes
--- NOTE | 2023-08-10 09:47 | W.PN.INTV ---
Today's Communication / Plan
Recommendations
Continue to monitor sodium
3% saline as needed
Fluid restriction
Increase activity as able
Transfer to telemetry
Sign off
Assessment
-
Severe hyponatremia sodium 110
Differential diagnoses include psychogenic polydipsia/SIADH.
Conditions present prior admission:
Coronary artery disease with history of a stent
Hypertension
Controlled
Hyperlipidemia
Hypothyroidism
Schizophrenia
Compensated
Former alcohol use
Active smoker
Assessment and plan:
Presentation with a symptomatic severe hyponatremia with sodium 110.
Denies any complaints.
- Given low urine osmolality and low urine sodium level, this is likely psychogenic polydipsia VS SIADH from poor adherence to fluid restriction and salt tabs outpatient.
Other likely etiology include but not limited to psych medication side effects.
-
Discussed with nephrology.
Sodium slowly increasing.
Continue fluid restriction
3% saline as needed
Continue with close monitoring, BMP today at 3 PM.
He continues to remain mostly asymptomatic
Psychiatry has seen the patient, some of the medication will be adjusted.
- Fluid restriction, 48 ounces/day per nephrology.
- Hold standing Lasix and salt tabs
- Maintain Hutchinson catheter as the patient unable to void.
- Frequent neurological checks.
Hypertension:
- Controlled.
- Hold diuretics.
- Okay to continue home antihypertensives.
Hypothyroidism:
- TSH within normal limits
Schizophrenia:
- Seems to be compensated.
- Monitor Pain and Valproic Acid Levels within Normal Limits.
Psychiatry has evaluated the patient. Medication to be adjusted.
Active [employer] abuse
- Nicotine patch.
- Smoking cessation advised.
DVT prophylaxis: Lovenox
-
No additional recommendation from the critical care perspective.
Discussed with nephrology. Will transfer to telemetry.
Critical care team will sign off.
Please call pulmonary if any respiratory issues arise.
Subjective Dataa
Subjective Data
Date of Service:
Date of Service: August 10, 2023
Chief Complaint: Coordinator Of Rehabilitation Services Follow Up
Subjective:
Denies headache, blurry vision, nausea or vomiting.
Complaining of some diarrhea.
Review of Systems
General: Fever (n)
Cardiopulmonary: Dyspnea (n)
GI: Abdominal Pain (n), Nausea (n) and Vomiting (n)
Neuro: Headache (n)
Objective Data
Data Reviewed
Vital Signs / I&O / Oxygen:
Vital Signs
Temp Pulse Resp BP Pulse Ox
98.0 F 57 17 123/76 94
08/10/23 07:42 08/10/23 09:00 08/10/23 09:00 08/10/23 08:23 08/10/23 09:00
Intake and Output
08/09/23 08/10/23 08/11/23
06:59 06:59 06:59
Intake Total 1180 / 1245 785 / 785 240 / 240
Output Total 775 / 775 1475 / 1475
Balance 405 / 470 -690 / -690 240 / 240
SaO2 94
Physical Exam
General: Comfortable
HEENT: Normocephalic
Cardiovascular: S1-S2, Regular Rhythm and Murmur (Negative)
Respiratory: Clear and Non-Labored Respirations
GI: Soft, Non Distended, Non Tender and Normal Bowel Sounds
Neurology: Awake, Alert, Oriented and AO x 3
Skin: Warm and Dry
Labs/Micro/Reports
Lab Data
08/09/23 03:31
--- NOTE | 2023-08-10 10:09 | PTCARENOTE ---
Addendum entered by Yudy Salazar RN 08/10/23 11:07:
still not resulted. call to chemistry. they state they just placed specimen on instrument. awaiting results
Original Note:
labs hemolyzed, redrawn and sent. results pending
--- NOTE | 2023-08-10 10:43 | W.PN.UPDATE ---
Update Note
Progress Note Update
patient seen chart reviewed. received an email re edison's housing from [facility] personnel. where he resides quarters b there is very little supervision and there is concern he needs a higher level of care. unfortunately his living situation is not
likely to change while he is here and that will have to be something [facility] does for him after he is dc. i explained to him that i had cut back his tegretol to 200 q day and it would stop in four more days. the sodium is 119 today which is up a bit.
we shall see. will continue to follow
[2023-08-10 11:10] LABS: Blood Urea Nitrogen 10 mg/dl (9-20); Calcium 8.7 mg/dl (8.4-10.2); Carbon Dioxide 20 mmol/L (22-30); Chloride 93 mmol/L (98-107); Estimated Creatinine Clearance 124 ml/min; Glucose 137 mg/dl (70-99); Potassium 5.1 mmol/L (3.5-5.1); Sodium 121 mmol/L (135-145); eGFR > 60.00
[2023-08-10 15:25] LABS: Carbon Dioxide 19 mmol/L (22-30); Chloride 94 mmol/L (98-107); Potassium 5.1 mmol/L (3.5-5.1); Sodium 123 mmol/L (135-145)
--- NOTE | 2023-08-10 15:25 | PTCARENOTE ---
Addendum entered by Yudy Salazar RN 08/10/23 15:55:
transfer to by PCT and all belongings
Original Note:
report called to Sonia GARCIA on . awaiting bed to be cleaned
[2023-08-10] MEDS: LOVENOX 40 MG SC (17:20)
--- NOTE | 2023-08-10 17:43 | W.PN.HOSP.TC ---
Today's Communication/Plan
-
Monitor sodium levels
Adjust psychiatric regimen.
Assessment / Plan
Assessment / Plan
IMPRESSION:
Recurrent severe acute on chronic hyponatremia sodium level 110.
Acute intervention with PVR over 600
PLAN:
CAD status post stent
Essential hypertension
Dyslipidemia
Hypothyroidism on replacement
Schizophrenia.
Former alcohol use disorder sober over 2 years.
Active smoker.
Plan:
Severe hyponatremia sodium 110 upon presentation
Admit to ICU
Fortunately patient is not symptomatic other than mild tremor that could be related to his psychiatric medication regimen.
States to be compliant with oral diuretic and SoluTab as outpatient.
If reliable, denies excessive water intake, although with reasonable risk factors given his psychiatric condition.
Most recent admission with hyponatremia was consistent with high ADH state.
Urine osmolarity is low, consistent with water intoxication.
Possibly component of SIADH secondary to psychiatric medications including carbamazepine.
TSH within normal limits
Initiated on 3% in ED.
Status post single dose of DDAVP on 08/07
Free water restriction with 48 ounces
Reintroduce salt tablets
Discussed with nephrology
Acute urine retention
Hutchinson catheter placed in ED on 08/07
Plan is for voiding trial once sodium level stabilized.
CAD with stent.
Continue preadmission DAPT and statin.
Continue beta-santana
Essential hypertension
Continue preadmission metoprolol, lisinopril, hydralazine
Hold furosemide and spironolactone pending further workup for hyponatremia
Schizophrenia
Psychiatric status stable upon presentation
Psychiatry input appreciated.
Continue Depakote
Plan is to wean off Tegretol
Continue Risperdal
Psychiatric input on adjustment of psychiatric regimen given recurrent admissions with hyponatremia
Former alcohol use disorder states to be sober over 2 years
Tobacco use disorder. Counseled on quitting. May need nicotine patch.
Full code
DVT prophylaxis heparin.
Anticipated Discharge: 24 - 48 hours
Subjective/Interval History
-
Date of Service: August 10, 2023
Objective Data
-
Labs:
Laboratory Results
08/10/23 08/10/23 08/10/23
08:21 09:47 14:59
Sodium Cancelled 121 L 123 L
Potassium Cancelled 5.1 5.1
Chloride Cancelled 93 L 94 L
Carbon Dioxide Cancelled 20 L 19 L
BUN Cancelled 10
Creatinine Cancelled 0.6 L
Glucose Cancelled 137 H
Calcium Cancelled 8.7
Vital Signs:
Vital Signs
Temp Pulse Resp BP Pulse Ox
98.2 F 62 22 118/70 96
08/10/23 16:25 08/10/23 16:25 08/10/23 16:25 08/10/23 16:25 08/10/23 16:25
I&O
08/09/23 08/10/23 08/11/23
06:59 06:59 06:59
Intake Total 1180 / 1245 785 / 785 600 / 600
Output Total 775 / 775 1475 / 1475 250 / 250
Balance 405 / 470 -690 / -690 350 / 350
Physical Exam
-
General: Well Developed and No Apparent Distress
HEENT: Normocephalic, Atraumatic and Moist Mucous Membranes
Respiratory: Clear to Auscultation
Cardiac: Regular Rhythm and S1/S2; Negative Murmur, Rub or Gallop
GI: Soft, Nontender, Nondistended and Normal Bowel Sounds; Negative Organomegaly
Rectal: Deferred by Provider
Musculoskeletal: No Clubbing, No Cyanosis and No Edema
Skin: Negative Rash
Neuro: Nonfocal/Grossly Intact
[2023-08-10] MEDS: TOPROL XL 25 MG PO (21:27)
[2023-08-10] MEDS: PLAVIX 75 MG PO (21:27)
[2023-08-10] MEDS: LIPITOR 80 MG PO (21:27)
[2023-08-10] MEDS: RISPERDAL 3 MG PO (21:33)
[2023-08-10] MEDS: SODIUM CHLORIDE 1 GRAM PO (21:34)
[2023-08-11] VITALS (8 sets, daily range): BP systolic 116–149; BP diastolic 66–75; PULSE 57
[2023-08-11] MEDS: SYNTHROID 25 MCG PO (05:52)
[2023-08-11 09:02] LABS: Blood Urea Nitrogen 13 mg/dl (9-20); Calcium 9.2 mg/dl (8.4-10.2); Carbon Dioxide 19 mmol/L (22-30); Chloride 96 mmol/L (98-107); Estimated Creatinine Clearance 124 ml/min; Glucose 83 mg/dl (70-99); Potassium 5.5 mmol/L (3.5-5.1); Sodium 126 mmol/L (135-145); eGFR > 60.00
--- NOTE | 2023-08-11 10:36 | CM ---
Patient seen bedside, reports no needs to CM at this time. CM will continue to follow for discharge planning needs.
Plan; return back to [facility] home with Baudilio PATEL when medically stable.
[2023-08-11] MEDS: LOW STRENGTH ASPIRIN 81 MG PO (10:45)
[2023-08-11] MEDS: NICODERM TRANSDERMAL 21 MG TRANSDERM (10:45)
[2023-08-11] MEDS: SODIUM CHLORIDE 1 GRAM PO ×2 (10:46→21:03)
[2023-08-11] MEDS: NORVASC 10 MG PO (10:46)
[2023-08-11] MEDS: TOPROL XL 25 MG PO (10:47)
[2023-08-11] MEDS: DEPAKOTE (12 HR RELEASE) 500 MG PO ×2 (10:47→21:03)
[2023-08-11] MEDS: ZESTRIL PO (10:47)
[2023-08-11] MEDS: TEGRETOL 200 MG PO (10:58)
[2023-08-11] MEDS: APRESOLINE 25 MG PO ×2 (10:58→21:03)
[2023-08-11 11:04] LABS: Blood Urea Nitrogen 12 mg/dl (9-20); Calcium 9.1 mg/dl (8.4-10.2); Carbon Dioxide 20 mmol/L (22-30); Chloride 94 mmol/L (98-107); Estimated Creatinine Clearance 124 ml/min; Glucose 120 mg/dl (70-99); Sodium 123 mmol/L (135-145); eGFR > 60.00
--- NOTE | 2023-08-11 12:52 | W.PN.UPDATE ---
Update Note
Progress Note Update
patient seen chart reviewed. patient is pleasant and cooperative serum sodium is headed in the right direction not at 126. not clear if this is secondary to taper and eventual dc of tegretol but would continue with this as it is doubtful dc of
tegretol will be deleterious to him. edison has been ambulating. he is looking forward to returning to [facility]. it will be up to [facility] personnel to decide if he can remain there. hopefully if he remains medically stable that will be a possibility
no changes made in his medications.
--- NOTE | 2023-08-11 12:58 | W.PN.NEPH.PH ---
Today's Communication / Plan
-
3% saline, likely resume lasix soon
Assessment/Plan
-
IMP:
Acute on chronic Hyponatremia 110
h/o CAD s/p stent
HTN (on metop, lisinopril, hydralazine, norvasc, spironolactone)
DLD
Hypothyroidism (last TSH wnl)
Schizophrenia
alcohol abuse (in remission)
active smoker
Plan:
A/w hyponatremia found in out pt labs, 115, repeat in ER at 110,
acute on chronic - from polydipsia, U osmo 116
known SIADH from carbamazepine?, normal TSH, old CXR was neg
mike being placed for retention, for VT
maintain FR 48 ounces/day for now
sodium remains low at 123 with salt tablets
will give 3% saline again today and likely resume lasix soon
mild hyperkalemia now k at 5
BP are stable, continue home meds
Psychiatry suggesting titrating back Tegretol given recurrence of hyponatremia
Recheck lytes at 1700
-
-
Date of Service: August 11, 2023
CC / HPI / ROS
-
Chief Complaint:
Hyponatremia
History of Present Illness:
Serum sodium now at 123
Hemodynamically stable
k was at 5.5 earlier, now at 5
Review of Systems:
Mental status stable
Nonoliguric via Mike
No fever
Labs
-
Labs:
WBC 9.6 10^3/uL (4.8-10.8) 08/09/23 03:31
RBC 4.60 10^6/uL (4.70-6.10) L 08/09/23 03:31
Hgb 13.5 g/dL (13.0-18.0) 08/09/23 03:31
Hct 37.8 % (39.0-52.0) L 08/09/23 03:31
Plt Count 318 10^3/uL (130-400) D 08/09/23 03:31
Sodium 123 mmol/L (135-145) L 08/11/23 09:39
Potassium 5.0 mmol/L (3.5-5.1) 08/11/23 09:39
Chloride 94 mmol/L (98-107) L 08/11/23 09:39
Carbon Dioxide 20 mmol/L (22-30) L 08/11/23 09:39
BUN 12 mg/dl (9-20) 08/11/23 09:39
Creatinine 0.6 mg/dL (0.7-1.3) L 08/11/23 09:39
eGFR > 60.00 08/11/23 09:39
Glucose 120 mg/dl (70-99) H 08/11/23 09:39
Calcium 9.1 mg/dl (8.4-10.2) 08/11/23 09:39
Albumin 4.5 g/dl (3.5-5.0) 08/08/23 10:12
Physical Exam
-
Vital Signs:
Vital Signs
Temp Pulse Resp BP Pulse Ox
98.0 F 51 18 149/75 98
08/11/23 11:13 08/11/23 11:13 08/11/23 11:13 08/11/23 11:13 08/11/23 11:13
Cardiovascular:: Regular rate and rhythm
Respiratory:: Bilateral: CTA
Lung Excursion:: Normal
Abdomen:: Nontender and Soft
Extremity Edema:: None: Bilateral:
Mike Catheter: No
--- NOTE | 2023-08-11 13:50 | W.PN.HOSP.TC ---
Today's Communication/Plan
-
3% solution to
Hold ACEi for hyperkalemia
Wean off Tegretol as per psychiatry.
Follow BMP
Assessment / Plan
Assessment / Plan
IMPRESSION:
Recurrent severe acute on chronic hyponatremia sodium level 110.
Acute intervention with PVR over 600
PLAN:
CAD status post stent
Essential hypertension
Dyslipidemia
Hypothyroidism on replacement
Schizophrenia.
Former alcohol use disorder sober over 2 years.
Active smoker.
Plan:
Severe hyponatremia sodium 110 upon presentation
Admit to ICU
Fortunately patient is not symptomatic other than mild tremor that could be related to his psychiatric medication regimen.
States to be compliant with oral diuretic and SoluTab as outpatient.
If reliable, denies excessive water intake, although with reasonable risk factors given his psychiatric condition.
Most recent admission with hyponatremia was consistent with high ADH state.
Urine osmolarity is low, consistent with water intoxication.
Possibly component of SIADH secondary to psychiatric medications including carbamazepine.
TSH within normal limits
Initiated on 3% in ED.
Status post single dose of DDAVP on 08/07
Serum sodium improved 126�123 today.
Continue Free water restriction with 48 ounces
Continue SoluTab
Reinstated on 3% infusion on 08/10
Mild hyperkalemia potassium 5.5 noted
Hold lisinopril and follow BMP.
Acute urine retention
Hutchinson catheter placed in ED on 08/07
Plan is for voiding trial once sodium level stabilized.
CAD with stent.
Continue preadmission DAPT and statin.
Continue beta-santana
Essential hypertension
Continue preadmission metoprolol, lisinopril, hydralazine
Hold furosemide and spironolactone pending further workup for hyponatremia
Schizophrenia
Psychiatric status stable upon presentation
Psychiatry input appreciated.
Continue Depakote
Plan is to wean off Tegretol as per psychiatry
Continue Risperdal
Psychiatric input on adjustment of psychiatric regimen given recurrent admissions with hyponatremia
Former alcohol use disorder states to be sober over 2 years
Tobacco use disorder. Counseled on quitting. May need nicotine patch.
Full code
DVT prophylaxis heparin.
Anticipated Discharge: 24 - 48 hours
Subjective/Interval History
-
Date of Service: August 11, 2023
Objective Data
-
Labs:
Laboratory Results
08/11/23 08/11/23 08/11/23
07:51 09:39 17:00
Sodium 126 L 123 L Pending
Potassium 5.5 H 5.0
Chloride 96 L 94 L
Carbon Dioxide 19 L 20 L
BUN 13 12
Creatinine 0.6 L 0.6 L
Glucose 83 120 H
Calcium 9.2 9.1
Vital Signs:
Vital Signs
Temp Pulse Resp BP Pulse Ox
98.0 F 51 18 149/75 98
08/11/23 11:13 08/11/23 11:13 08/11/23 11:13 08/11/23 11:13 08/11/23 11:13
I&O
08/10/23 08/11/23 08/12/23
06:59 06:59 06:59
Intake Total 785 / 785 1440 / 1440
Output Total 1475 / 1475 750 / 750
Balance -690 / -690 690 / 690
Physical Exam
-
General: Well Developed and No Apparent Distress
HEENT: Normocephalic, Atraumatic and Moist Mucous Membranes
Respiratory: Clear to Auscultation
Cardiac: Regular Rhythm and S1/S2; Negative Murmur, Rub or Gallop
GI: Soft, Nontender, Nondistended and Normal Bowel Sounds; Negative Organomegaly
Rectal: Deferred by Provider
Musculoskeletal: No Clubbing, No Cyanosis and No Edema
Skin: Negative Rash
Neuro: Nonfocal/Grossly Intact
[2023-08-11] MEDS: SODIUM CHLORIDE 3% 250 IV (14:14)
[2023-08-11 17:32] LABS: Sodium 124 mmol/L (135-145)
--- NOTE | 2023-08-11 18:21 | PTCARENOTE ---
patiet refused to wash anything but his face when offered washing x3.
[2023-08-11] MEDS: LOVENOX 40 MG SC (19:24)
[2023-08-11] MEDS: TOPROL XL PO (21:04)
[2023-08-11] MEDS: LIPITOR 80 MG PO (21:04)
[2023-08-11] MEDS: RISPERDAL 3 MG PO (21:04)
[2023-08-11] MEDS: PLAVIX 75 MG PO (21:04)
[2023-08-12 03:00] VITALS: BP 134/73
[2023-08-12] MEDS: SYNTHROID 25 MCG PO (06:01)
[2023-08-12 07:00] VITALS: BP 148/71
[2023-08-12] MEDS: NICODERM TRANSDERMAL 21 MG TRANSDERM (08:40)
[2023-08-12] MEDS: APRESOLINE 25 MG PO ×2 (08:40→20:05)
[2023-08-12] MEDS: LOW STRENGTH ASPIRIN 81 MG PO (08:40)
[2023-08-12] MEDS: DEPAKOTE (12 HR RELEASE) 500 MG PO ×2 (08:40→20:05)
[2023-08-12] MEDS: NORVASC 10 MG PO (08:41)
[2023-08-12] MEDS: SODIUM CHLORIDE 1 GRAM PO ×2 (08:41→20:05)
[2023-08-12] MEDS: TEGRETOL 200 MG PO (08:41)
[2023-08-12] MEDS: TOPROL XL PO ×2 (08:43→20:05)
[2023-08-12 09:45] LABS: Blood Urea Nitrogen 11 mg/dl (9-20); Calcium 9.7 mg/dl (8.4-10.2); Carbon Dioxide 22 mmol/L (22-30); Chloride 96 mmol/L (98-107); Estimated Creatinine Clearance 124 ml/min; Glucose 116 mg/dl (70-99); Potassium 4.9 mmol/L (3.5-5.1); Sodium 128 mmol/L (135-145); eGFR > 60.00
--- NOTE | 2023-08-12 10:24 | W.PN.HOSP.TC ---
Today's Communication/Plan
-
see A/P
Assessment / Plan
Assessment / Plan
IMPRESSION:
Recurrent severe acute on chronic hyponatremia, sodium level 110 on admission
Acute urinary retention with PVR over 600
PLAN:
CAD status post stent
Essential hypertension
Dyslipidemia
Hypothyroidism on replacement
Schizophrenia.
Former alcohol use disorder sober over 2 years.
Active smoker.
Plan:
Severe hyponatremia with sodium 110 upon presentation
Fortunately patient is not symptomatic other than mild tremor that could be related to his psychiatric medication regimen.
States to be compliant with oral diuretic and SoluTab as outpatient.
If reliable, denies excessive water intake, although with reasonable risk factors given his psychiatric condition.
Most recent admission with hyponatremia was consistent with high ADH state.
Urine osmolarity was low, consistent with water intoxication.
Possibly component of SIADH secondary to psychiatric medications including carbamazepine.
TSH within normal limits
Initiated on 3% in ED.
Status post single dose of DDAVP on 08/07
Serum sodium improved to 128 today.
Continue Free water restriction at 48 ounces
Continue SoluTab
Reinstated on 3% infusion on 08/10 per renal
Pt is out of ICU
Cont to monitor BMP
Mild hyperkalemia potassium 5.5 noted
Hold lisinopril and follow BMP for K level
Acute urine retention
Hutchinson catheter placed in ED on 08/07
Plan is for voiding trial once sodium level stabilized.
CAD with stent.
Continue preadmission DAPT and statin.
Continue beta-santana
Essential hypertension
Continue preadmission metoprolol, hydralazine, Norvasc
Hold furosemide and spironolactone pending further workup for hyponatremia
Lisinopril on hold due to hyperkalemia
Schizophrenia
Psychiatric status stable upon presentation
Psychiatry input appreciated.
Continue Depakote
Plan is to wean off Tegretol as per psychiatry
Continue Risperdal
Psychiatric input on adjustment of psychiatric regimen given recurrent admissions with hyponatremia
Former alcohol use disorder states to be sober over 2 years
Tobacco use disorder. Counseled on quitting. May need nicotine patch.
Full code
DVT prophylaxis heparin.
Anticipated Discharge: > 48 hours
Subjective/Interval History
-
Date of Service: August 12, 2023
Objective Data
-
Labs:
Laboratory Results
08/12/23
09:18
Sodium 128 L
Potassium 4.9
Chloride 96 L
Carbon Dioxide 22
BUN 11
Creatinine 0.6 L
Glucose 116 H
Calcium 9.7
Vital Signs:
Vital Signs
Temp Pulse Resp BP Pulse Ox
36.8 C 54 18 148/71 99
08/12/23 07:00 08/12/23 08:43 08/12/23 07:00 08/12/23 07:00 08/12/23 07:00
I&O
08/11/23 08/12/23 08/13/23
06:59 06:59 06:59
Intake Total 1440 / 1440 1250 / 1250
Output Total 750 / 750
Balance 690 / 690 1250 / 1250
Review of Systems
-
All other systems: Reviewed and negative
Physical Exam
-
General: Well Developed, Well Nourished, No Apparent Distress, Comfortable and Conversant
HEENT: Normocephalic, Atraumatic and Moist Mucous Membranes
Respiratory: Clear to Auscultation and Non Labored Respirations; Negative Accessory Resp Muscle Use
Cardiac: Regular Rhythm and S1/S2; Negative Murmur, Rub or Gallop
GI: Soft, Nontender, Nondistended and Normal Bowel Sounds; Negative Organomegaly
Rectal: Deferred by Provider
Musculoskeletal: No Clubbing, No Cyanosis and No Edema
Skin: Negative Rash
Neuro: Awake
Psych: Calm
Data Reviewed
-
Labs: Labs Reviewed by me
[2023-08-12] MEDS: LASIX 40 MG PO (12:47)
--- NOTE | 2023-08-12 14:24 | W.PN.NEPH.PH ---
Today's Communication / Plan
-
lasix, salt tab and FR
Assessment/Plan
-
IMP:
Acute on chronic Hyponatremia 110
h/o CAD s/p stent
HTN (on metop, lisinopril, hydralazine, norvasc, spironolactone)
DLD
Hypothyroidism (last TSH wnl)
Schizophrenia
alcohol abuse (in remission)
active smoker
Plan:
A/w hyponatremia found in out pt labs, 115, repeat in ER at 110,
acute on chronic - from polydipsia, U osmo 116
known SIADH from carbamazepine?-now plan of weaning per psych
normal TSH, old CXR was neg
VT, follow bladder scan
maintain FR 48 ounces/day for now even at d/c
sodium better at 128 s/p 3% saline
cont sakt tab, resumed lasix today
BP are stable, continue home meds
d/c plan
-
-
Date of Service: August 12, 2023
CC / HPI / ROS
-
Chief Complaint:
Hyponatremia
History of Present Illness:
Serum sodium now at 128
Hemodynamically stable
k at 4.9
Review of Systems:
Mental status stable
Nonoliguric via Hutchinson
No fever
Labs
-
Labs:
WBC 9.6 10^3/uL (4.8-10.8) 08/09/23 03:31
RBC 4.60 10^6/uL (4.70-6.10) L 08/09/23 03:31
Hgb 13.5 g/dL (13.0-18.0) 08/09/23 03:31
Hct 37.8 % (39.0-52.0) L 05/01/24 03:31
Plt Count 318 10^3/uL (130-400) D 08/09/23 03:31
Sodium 128 mmol/L (135-145) L 08/12/23 09:18
Potassium 4.9 mmol/L (3.5-5.1) 08/12/23 09:18
Chloride 96 mmol/L (98-107) L 08/12/23 09:18
Carbon Dioxide 22 mmol/L (22-30) 08/12/23 09:18
BUN 11 mg/dl (9-20) 08/12/23 09:18
Creatinine 0.6 mg/dL (0.7-1.3) L 08/12/23 09:18
eGFR > 60.00 08/12/23 09:18
Glucose 116 mg/dl (70-99) H 08/12/23 09:18
Calcium 9.7 mg/dl (8.4-10.2) 08/12/23 09:18
Albumin 4.5 g/dl (3.5-5.0) 08/08/23 10:12
Physical Exam
-
Vital Signs:
Vital Signs
Temp Pulse Resp BP Pulse Ox
98.2 F 54 18 148/71 99
08/12/23 07:00 08/12/23 08:43 08/12/23 07:00 08/12/23 07:00 08/12/23 08:45
Cardiovascular:: Regular rate and rhythm
Respiratory:: Bilateral: CTA
Lung Excursion:: Normal
Abdomen:: Nontender and Soft
Extremity Edema:: None: Bilateral:
Hutchinson Catheter: No
[2023-08-12 15:00] VITALS: BP 129/76
[2023-08-12] MEDS: LOVENOX 40 MG SC (17:07)
--- NOTE | 2023-08-12 17:15 | W.PN.UPDATE ---
Update Note
Progress Note Update
Pt seen at bedside. Is resting comfortably, pleasant and cooperative. Oriented - able to discuss his sodium labs meaningfully. Does not notice any changes in mood with trileptal decrease and is agreeable to completely tapering off over next few
days. Is aware to report any mood changes if they do occur. Reports sleeping well and feeling hopeful that sodium will normalize over next couple of days so he can be discharged.
Continue tegretol once daily, to be discontinued in 2 days
no other medication changes at this time
[2023-08-12 19:00] VITALS: BP 136/82
[2023-08-12] MEDS: PLAVIX 75 MG PO (20:06)
[2023-08-12] MEDS: LIPITOR 80 MG PO (20:06)
[2023-08-12] MEDS: RISPERDAL 3 MG PO (20:07)
[2023-08-12 22:54] VITALS: BP 146/76
[2023-08-13 03:09] VITALS: BP 126/70
[2023-08-13] MEDS: SYNTHROID 25 MCG PO (06:09)
[2023-08-13 06:21] LABS: Blood Urea Nitrogen 17 mg/dl (9-20); Calcium 9.6 mg/dl (8.4-10.2); Carbon Dioxide 25 mmol/L (22-30); Chloride 94 mmol/L (98-107); Estimated Creatinine Clearance 93 ml/min; Glucose 88 mg/dl (70-99); Potassium 5.2 mmol/L (3.5-5.1); Sodium 128 mmol/L (135-145); eGFR > 60.00
[2023-08-13 07:08] VITALS: BP 143/75
[2023-08-13] MEDS: TEGRETOL 200 MG PO (08:12)
[2023-08-13] MEDS: APRESOLINE 25 MG PO ×2 (08:12→20:30)
[2023-08-13] MEDS: SODIUM CHLORIDE 1 GRAM PO ×2 (08:13→20:30)
[2023-08-13] MEDS: LOW STRENGTH ASPIRIN 81 MG PO (08:13)
[2023-08-13] MEDS: TOPROL XL PO ×2 (08:13→20:30)
[2023-08-13] MEDS: NICODERM TRANSDERMAL 21 MG TRANSDERM (08:13)
[2023-08-13] MEDS: NORVASC 10 MG PO (08:13)
[2023-08-13] MEDS: LASIX 40 MG PO (08:13)
[2023-08-13] MEDS: DEPAKOTE (12 HR RELEASE) 500 MG PO ×2 (08:13→20:30)
[2023-08-13 11:00] VITALS: BP 118/75
--- NOTE | 2023-08-13 11:15 | W.PN.HOSP.TC ---
Addendum entered and electronically signed by Moni Batres MD 08/13/23 12:03:
per CM, pt cannot return to [facility] today (/Monday).
Group can only accept pt back / Monday.
Original Note:
Today's Communication/Plan
-
see A/P
Assessment / Plan
Assessment / Plan
IMPRESSION:
Recurrent severe acute on chronic hyponatremia, sodium level 110 on admission
Acute urinary retention with PVR over 600 on admission, resolved
PLAN:
CAD status post stent
Essential hypertension
Dyslipidemia
Hypothyroidism on replacement
Schizophrenia.
Former alcohol use disorder sober over 2 years.
Active smoker.
Plan:
Severe hyponatremia with sodium 110 upon presentation
Fortunately patient is not symptomatic other than mild tremor that could be related to his psychiatric medication regimen.
States to be compliant with oral diuretic and SoluTab as outpatient.
If reliable, denies excessive water intake, although with reasonable risk factors given his psychiatric condition.
Most recent admission with hyponatremia was consistent with high ADH state.
Urine osmolarity was low, consistent with water intoxication.
Possibly component of SIADH secondary to psychiatric medications including carbamazepine.
TSH within normal limits
Initiated on 3% in ED.
Status post single dose of DDAVP on 08/07
Serum sodium improved to 128 today.
Continue Free water restriction at 48 ounces
Continue SoluTab
Reinstated on 3% infusion on 08/10 per renal
Pt is out of ICU
Cont to monitor BMP
Mild hyperkalemia potassium noted, today at 5.2
Hold lisinopril and follow BMP for K level outpt
Acute urine retention
Hutchinson catheter placed in ED on 08/07
Passed voiding trial and Hutchinson removed
CAD with stent.
Continue preadmission DAPT and statin.
Continue beta-santana
Essential hypertension
Continue preadmission metoprolol, hydralazine, Norvasc
Hold furosemide and spironolactone pending further workup for hyponatremia
Lisinopril on hold due to hyperkalemia
Schizophrenia
Psychiatric status stable upon presentation
Psychiatry input appreciated.
Plan is to wean off Tegretol as per psychiatry: Cont Tegretol once daily, to be discontinued in 2 days
Continue Depakote
Continue Risperdal
Former alcohol use disorder states to be sober over 2 years
Tobacco use disorder. Counseled on quitting. May need nicotine patch.
Full code
DVT prophylaxis heparin.
Called primary contact Briana, call not answered and mail box is full hence cannot leave voicemail
Anticipated Discharge: Today
Subjective/Interval History
-
Date of Service: August 13, 2023
Objective Data
-
Labs:
Laboratory Results
08/13/23
05:42
Sodium 128 L
Potassium 5.2 H
Chloride 94 L
Carbon Dioxide 25
BUN 17
Creatinine 0.8
Glucose 88
Calcium 9.6
Vital Signs:
Vital Signs
Temp Pulse Resp BP Pulse Ox
36.8 C 78 16 118/75 94
08/13/23 11:00 08/13/23 11:00 08/13/23 11:00 08/13/23 11:00 08/13/23 11:00
I&O
08/12/23 08/13/23 08/14/23
06:59 06:59 06:59
Intake Total 1250 / 1250 840 / 840
Output Total 0 / 0
Balance 1250 / 1250 840 / 840
Review of Systems
-
All other systems: Reviewed and negative
Physical Exam
-
General: Well Developed, Well Nourished, No Apparent Distress, Comfortable and Conversant
HEENT: Normocephalic, Atraumatic and Moist Mucous Membranes
Respiratory: Clear to Auscultation and Non Labored Respirations; Negative Accessory Resp Muscle Use
Cardiac: Regular Rhythm and S1/S2; Negative Murmur, Rub or Gallop
GI: Soft, Nontender, Nondistended and Normal Bowel Sounds; Negative Organomegaly
Rectal: Deferred by Provider
Musculoskeletal: No Clubbing, No Cyanosis and No Edema
Skin: Negative Rash
Neuro: Awake
Psych: Calm
Data Reviewed
-
Labs: Labs Reviewed by me
--- NOTE | 2023-08-13 11:46 | CM ---
Per Hospitalist, patient clear for discharge today. CM placed call to [facility] disability case manager [phone], left voicemail requesting return call to confirm patient is able to return. CM called [facility] [phone],
spoke with Luz Marina, awaiting return call to confirm patient can return. CM will continue to follow for discharge planning needs.
CM received call from Re at [facility] ([phone]), reports patient needs higher level of care than where he is currently living, will be transitioning patient to [facility] in [place] which provides staffing 24 hours a day. Re
reports patient resides in what is called [facility] which is completely independent. Re reports they are unable to accept over the weekend but can accept for tomorrow, can contact Re tomorrow with patient discharge information.
CM will continue to follow for discharge planning needs.
Plan; halfway unable to accept today, can accept tomorrow to [facility], call Re at [facility] [phone]
--- NOTE | 2023-08-13 12:44 | W.PN.NEPH.PH ---
Today's Communication / Plan
-
see plan
Assessment/Plan
-
IMP:
Acute on chronic Hyponatremia 110
h/o CAD s/p stent
HTN (on metop, lisinopril, hydralazine, norvasc, spironolactone)
DLD
Hypothyroidism (last TSH wnl)
Schizophrenia
alcohol abuse (in remission)
active smoker
Plan:
A/w hyponatremia found in out pt labs, 115, repeat in ER at 110,
acute on chronic - from polydipsia, U osmo 116
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
normal TSH, old CXR was neg
maintain FR 48 ounces/day
sodium better at 128 possibly is his baseline
cont salt tab and lasix
BP are stable on Amlodipine, hydralazine and BB , off ACEI and Aldactone-may resume in future
mild intermittent hyperkalemia-low potassium diet and lasix. dose LOkelma
on d/c, BMP with in 1 week
f/u Dr Bermudez
-
-
Date of Service: August 13, 2023
CC / HPI / ROS
-
Chief Complaint:
Hyponatremia
History of Present Illness:
Serum sodium stable at 128
Hemodynamically stable
k at 5.2
Review of Systems:
Mental status stable
Nonoliguric via [place]
No fever
Labs
-
Labs:
WBC 9.6 10^3/uL (4.8-10.8) 08/09/23 03:31
RBC 4.60 10^6/uL (4.70-6.10) L 08/09/23 03:31
Hgb 13.5 g/dL (13.0-18.0) 08/09/23 03:31
Hct 37.8 % (39.0-52.0) L 08/09/23 03:31
Plt Count 318 10^3/uL (130-400) D 08/09/23 03:31
Sodium 128 mmol/L (135-145) L 08/13/23 05:42
Potassium 5.2 mmol/L (3.5-5.1) H 08/13/23 05:42
Chloride 94 mmol/L (98-107) L 08/13/23 05:42
Carbon Dioxide 25 mmol/L (22-30) 08/13/23 05:42
BUN 17 mg/dl (9-20) 08/13/23 05:42
Creatinine 0.8 mg/dL (0.7-1.3) 08/13/23 05:42
eGFR > 60.00 08/13/23 05:42
Glucose 88 mg/dl (70-99) 08/13/23 05:42
Calcium 9.6 mg/dl (8.4-10.2) 08/13/23 05:42
Albumin 4.5 g/dl (3.5-5.0) 08/08/23 10:12
Physical Exam
-
Vital Signs:
Vital Signs
Temp Pulse Resp BP Pulse Ox
98.3 F 78 16 118/75 94
08/13/23 11:00 08/13/23 11:00 08/13/23 11:00 08/13/23 11:00 08/13/23 11:00
Cardiovascular:: Regular rate and rhythm
Respiratory:: Bilateral: CTA
Lung Excursion:: Normal
Abdomen:: Nontender and Soft
Extremity Edema:: None: Bilateral:
Hutchinson Catheter: No
[2023-08-13] MEDS: LOKELMA 10 GRAM PO (13:02)
[2023-08-13 15:09] VITALS: BP 118/70
[2023-08-13] MEDS: LOVENOX 40 MG SC (17:07)
--- NOTE | 2023-08-13 19:14 | W.PN.UPDATE ---
Update Note
Progress Note Update
Pt seen at bedside. Is resting in bed comfortably, pleasant and cooperative. Oriented - able to discuss his sodium labs meaningfully. Continues to report stable mood with no change since decreasing tegretol. It seems that his long term does not
accept transfers on weekends but he is hopeful he will be able to go back home tomorrow morning.
Continue tegretol once daily, can be discontinued tomorrow (can receive dose tomorrow and then d/c)
no other medication changes at this time
[2023-08-13] MEDS: PLAVIX 75 MG PO (21:26)
[2023-08-13] MEDS: LIPITOR 80 MG PO (21:26)
[2023-08-13] MEDS: RISPERDAL 3 MG PO (21:27)
[2023-08-13 23:58] VITALS: BP 134/68
[2023-08-14] MEDS: SYNTHROID 25 MCG PO (05:31)
[2023-08-14 06:50] LABS: Blood Urea Nitrogen 22 mg/dl (9-20); Carbon Dioxide 22 mmol/L (22-30); Chloride 96 mmol/L (98-107); Estimated Creatinine Clearance 124 ml/min; Glucose 84 mg/dl (70-99); Potassium 5.3 mmol/L (3.5-5.1); Sodium 128 mmol/L (135-145); eGFR > 60.00
[2023-08-14 07:30] VITALS: BP 124/76
[2023-08-14] MEDS: TOPROL XL 25 MG PO (10:27)
[2023-08-14] MEDS: LASIX 40 MG PO (10:28)
[2023-08-14] MEDS: LOW STRENGTH ASPIRIN 81 MG PO (10:28)
[2023-08-14] MEDS: NORVASC 10 MG PO (10:28)
[2023-08-14] MEDS: DEPAKOTE (12 HR RELEASE) 500 MG PO (10:28)
[2023-08-14] MEDS: NICODERM TRANSDERMAL 21 MG TRANSDERM (10:28)
[2023-08-14] MEDS: APRESOLINE 25 MG PO (10:28)
[2023-08-14] MEDS: SODIUM CHLORIDE 1 GRAM PO (10:29)
--- NOTE | 2023-08-14 11:24 | W.PN.NEPH.PH ---
Today's Communication / Plan
-
Sodium stable
Maintain fluid restriction and Lasix salt tablets
Assessment/Plan
-
IMP:
Acute on chronic Hyponatremia 110
h/o CAD s/p stent
HTN (on metop, lisinopril, hydralazine, norvasc, spironolactone)
DLD
Hypothyroidism (last TSH wnl)
Schizophrenia
alcohol abuse (in remission)
active smoker
Plan:
A/w hyponatremia found in out pt labs, 115, repeat in ER at 110,
Sodium now at 128
acute on chronic - from polydipsia, U osmo 116
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
normal TSH, old CXR was neg
maintain FR 48 ounces/day
cont salt tab and lasix
BP are stable on Amlodipine, hydralazine and BB , off ACEI and Aldactone-due to ongoing hyperkalemia
mild intermittent hyperkalemia-low potassium diet and lasix. dose LOkelma
on d/c, BMP with in 1 week
f/u Dr Bermudez
-
-
Date of Service: August 14, 2023
CC / HPI / ROS
-
Chief Complaint:
Hyponatremia
History of Present Illness:
Serum sodium stable at 128
Hemodynamically stable
k at 5.3
Review of Systems:
Mental status stable
Nonoliguric via [place]
No fever
Labs
-
Labs:
WBC 9.6 10^3/uL (4.8-10.8) 08/09/23 03:31
RBC 4.60 10^6/uL (4.70-6.10) L 08/09/23 03:31
Hgb 13.5 g/dL (13.0-18.0) 08/09/23 03:31
Hct 37.8 % (39.0-52.0) L 08/09/23 03:31
Plt Count 318 10^3/uL (130-400) D 08/09/23 03:31
Sodium 128 mmol/L (135-145) L 08/14/23 04:38
Potassium 5.3 mmol/L (3.5-5.1) H 08/14/23 04:38
Chloride 96 mmol/L (98-107) L 08/14/23 04:38
Carbon Dioxide 22 mmol/L (22-30) 08/14/23 04:38
BUN 22 mg/dl (9-20) H 08/14/23 04:38
Creatinine 0.6 mg/dL (0.7-1.3) L 08/14/23 04:38
eGFR > 60.00 08/14/23 04:38
Glucose 84 mg/dl (70-99) 08/14/23 04:38
Calcium 9.0 mg/dl (8.4-10.2) 08/14/23 04:38
Albumin 4.5 g/dl (3.5-5.0) 08/08/23 10:12
Physical Exam
-
Vital Signs:
Vital Signs
Temp Pulse Resp BP Pulse Ox
98.4 F 62 18 124/76 96
08/14/23 07:30 08/14/23 07:30 08/14/23 07:30 08/14/23 07:30 08/14/23 07:30
Cardiovascular:: Regular rate and rhythm
Respiratory:: Bilateral: CTA
Lung Excursion:: Normal
Abdomen:: Nontender and Soft
Bowel Sounds:: Normal
Extremity Edema:: None: Bilateral:
Hutchinson Catheter: No
--- NOTE | 2023-08-14 11:33 | CM ---
a p manager reviewed patient's chart and met with patient and patient lives at [facility] but since patient's needs are greater plan is for patient to switch to another [facility] at [address] [place] [address], [place] [phone], case
charge manager spoke with Re, director of programming and they will pick patient up today at 1pm, all new prescriptions need to be sent to [facility], physician is aware. Patient will be set up with [facility] visiting nurses.
[facility] Visiting Nurses [phone]

Report to Re at [facility],
--- NOTE | 2023-08-14 11:43 | W.DS.TRANS ---
DC Summary - Fringe [facility]
-
Discharge Instructions:
Discharge Diagnosis/Procedures Recurrent severe acute on chronic hyponatremia (
sodium level 110 on admission, improved to 128
on admission); Acute urinary retention- resolved
; Schizophrenia.
Diet Restrict fluids to 48 oz,Regular
Activity As tolerated
Driving Restrictions No driving
Blood Work BMP in 1 week, result to PCP
Instructions:
Stand-Alone Forms:
Changes to Home Medications: Yes
Discharge Medications:
DC Medications w/original date entered in [employer]
levothyroxine 25 mcg tablet 25 mcg PO DAILY Thyroid 08/22/20
risperidone 3 mg tablet (Risperdal) 3 mg PO HS Neurological Condition 08/22/20
amlodipine 10 mg tablet (Norvasc) 10 mg PO DAILY Blood Pressure 07/07/23
aspirin 81 mg chewable tablet 81 mg PO DAILY Blood Clot Prevention/Tx 07/07/23
atorvastatin 80 mg tablet 80 mg PO HS High Cholesterol 07/07/23
clopidogrel 75 mg tablet 75 mg PO HS Blood Clot Prevention/Tx 07/07/23
divalproex 500 mg tablet,delayed release 500 mg PO BID seizure and psych 07/07/23
metoprolol succinate 25 mg tablet,extended release 24 hr 25 mg PO BID Heart Condition 07/07/23
acetaminophen 325 mg tablet 650 mg PO Q4HPRN PRN mild pain 08/08/23
furosemide 40 mg tablet 40 mg PO DAILY Fluid Retention/Swelling 08/08/23
hydralazine 25 mg tablet 25 mg PO BID Blood Pressure 08/08/23
melatonin 5 mg tablet 5 mg PO HS PRN sleep 08/08/23
sodium chloride 1,000 mg soluble tablet 1,000 mg PO BID Kidney Disease 08/08/23
Home Medication Changes
Aldactone, lisinopril had been discontinued due to hyperkalemia.
Tegretol had been discontinued due to hyponatremia.
Pending Results: No
[2023-08-14] MEDS: LOKELMA 10 GRAM PO (11:51)
--- NOTE | 2023-08-14 12:18 | PTCARENOTE ---
Report given to Re at [facility]. Iv access removed. Discharge instructions reviewed with patient. All pt belongings accounted for.
--- NOTE | 2023-08-14 13:33 | W.PN.UPDATE ---
Update Note
Progress Note Update
Pt seen this morning prior to discharge. Pt alert, oriented, with no signs of active psychosis. He appears stable after tapered off of Tegretol due to hyponatremia. Review of record shows Tegretol was added in 2019 in consult with psychiatrist
[facility], after alcohol withdrawal seizure. Pt denies feeling slowed/sedated, shows no EPS, gait is steady.
Imp: Schizophrenia, stable on existing Risperidone and Depakote
Rec: continue current psychotropic medications, return to outpatient treatment upon discharge
== END 2023-08-14 13:13 | disposition home health service (06) | DRG 645 ==
LOC: 4 WEST ACU 13:43
PROVIDERS: Emergency Medicine; Nurse Practitioner Primary Care; Physician Assistant; Specialist; Student in an Organized Health Care Education/Training Program; ADMITTING PHYSICIAN Internal Medicine; CONSULT PHYSICIAN Internal Medicine; CONSULT PHYSICIAN Internal Medicine Critical Care Medicine; EMERGENCY PHYSICIAN Emergency Medicine; FAMILY PHYSICIAN Family Medicine
DX: E22.2 Syndrome of inappropriate secretion of antidiuretic hormone (principal); F17.210 Nicotine dependence, cigarettes, uncomplicated; Z79.82 Long term (current) use of aspirin; F20.9 Schizophrenia, unspecified; E03.9 Hypothyroidism, unspecified; Z95.5 Presence of coronary angioplasty implant and graft; I25.10 Atherosclerotic heart disease of native coronary artery without angina pectoris; I10 Essential (primary) hypertension; E78.00 Pure hypercholesterolemia, unspecified; E87.5 Hyperkalemia
CPT/HCPCS: 71045; 80048; 80051; 80053; 80156; 80164; 81003; 83735; 83930; 83935; 84295; 84300; 84443; 85025; 85610; 85730; 93005; 96360; 96361; 97163; 97166; 97530; 97535; 99285; 99406; J2597

== ENCOUNTER 2024-04-09 09:25 | Outpatient (RCR) | payer MEDICARE, SELFPAY ==
[2024-04-09 09:55] LABS: Hematocrit 48.8 % (39.0-52.0); Hemoglobin 17.1 g/dL (13.0-18.0)
[2024-04-09 11:22] VITALS: BP 122/69
[2024-04-09 12:42] VITALS: BP 116/76; BP 130/72
== END 2024-04-09 23:59 | disposition home or self-care (01) ==
LOC: OID 09:25
PROVIDERS: ATTENDING PHYSICIAN Internal Medicine Hematology & Oncology; FAMILY PHYSICIAN Family Medicine
DX: D45 Polycythemia vera (principal); Z72.0 Tobacco use
CPT/HCPCS: 36415; 85014; 85018; 99195

== ENCOUNTER → 2024-08-22 09:11 | Outpatient (REF) | payer MEDICARE, SELFPAY ==
[2024-08-22 09:46] LABS: % Basophils 0.5 % (0-2); % Eosinophils 1.7 % (0-6); % Immature Granulocytes 0.9 % (0-0.5); % Lymphocytes 24.9 % (20.5-51.1); % Monocytes 12.8 % (1.7-9.3); % Neutrophils 59.2 % (42.2-75.2); Absolute Eosinophils 0.1 10^3/uL (0-0.7); Absolute Immature Granulocytes 0.1 10^3/uL (0-0.05); Absolute Neutrophils 4.8 10^3/uL (1.4-6.5); Hematocrit 48.1 % (39.0-52.0); Hemoglobin 16.5 g/dL (13.0-18.0); Mean Corp Hgb Conc. 34.3 g/dL (33.0-37.0); Mean Corpuscular Hgb 31.6 pg (27.0-31.0); Mean Corpuscular Volume 92.1 fL (80.0-94.0); Mean Platelet Volume 8.5 fL (7.4-10.4); Platelet Count 228 10^3/uL (130-400); Red Blood Cell Count 5.22 10^6/uL (4.70-6.10); Red Cell Dist. Width 15.9 % (11.5-14.5); White Blood Cell Count 8.2 10^3/uL (4.8-10.8)
== END ==
LOC: OIDL 09:11
PROVIDERS: ATTENDING PHYSICIAN Internal Medicine Hematology & Oncology; FAMILY PHYSICIAN Family Medicine
DX: D45 Polycythemia vera (principal)
CPT/HCPCS: 36415; 85025

== ENCOUNTER → 2024-09-25 09:40 | Outpatient (REF) | payer MEDICARE, SELFPAY ==
[2024-09-25 11:12] LABS: Blood Urea Nitrogen 4 mg/dl (9-20); Carbon Dioxide 21 mmol/L (22-30); Chloride 89 mmol/L (98-107); Glucose 97 mg/dl (70-99); Potassium 4.1 mmol/L (3.5-5.1); Sodium 122 mmol/L (135-145); eGFR > 60.00
== END ==
LOC: OIDL 09:40
PROVIDERS: ATTENDING PHYSICIAN Specialist; FAMILY PHYSICIAN Family Medicine
DX: E87.1 Hypo-osmolality and hyponatremia (principal)
CPT/HCPCS: 36415; 80048

== ENCOUNTER → 2024-10-08 10:48 | Outpatient (REF) | payer MEDICARE, SELFPAY | LOC: HWRAD 10:48 | PROVIDERS: ATTENDING PHYSICIAN Internal Medicine Hematology & Oncology; FAMILY PHYSICIAN Family Medicine | DX: Z87.891 Personal history of nicotine dependence (principal) | CPT/HCPCS: 71271 ==

== ENCOUNTER → 2024-10-10 10:37 | Outpatient (REF) | payer MEDICARE, SELFPAY ==
[2024-10-10 11:05] LABS: Hematocrit 42.2 % (39.0-52.0); Hemoglobin 14.7 g/dL (13.0-18.0); Mean Corp Hgb Conc. 34.8 g/dL (33.0-37.0); Mean Corpuscular Volume 96.1 fL (80.0-94.0); Platelet Count 195 10^3/uL (130-400); Red Cell Dist. Width 16.1 % (11.5-14.5)
== END ==
LOC: OIDL 10:37
PROVIDERS: ATTENDING PHYSICIAN Internal Medicine Hematology & Oncology; FAMILY PHYSICIAN Family Medicine; REFERRING PHYSICIAN Specialist
DX: D45 Polycythemia vera (principal); Z72.0 Tobacco use
CPT/HCPCS: 36415; 85025

== ENCOUNTER → 2024-10-23 11:55 | Outpatient (REF) | payer MEDICARE, SELFPAY ==
[2024-10-23 12:16] LABS: Hematocrit 43.0 % (39.0-52.0); Hemoglobin 15.1 g/dL (13.0-18.0); Mean Corp Hgb Conc. 35.1 g/dL (33.0-37.0); Mean Corpuscular Volume 97.1 fL (80.0-94.0); Platelet Count 172 10^3/uL (130-400); Red Cell Dist. Width 14.7 % (11.5-14.5)
== END ==
LOC: OIDL 11:55
PROVIDERS: ATTENDING PHYSICIAN Internal Medicine Hematology & Oncology
DX: D45 Polycythemia vera (principal); Z72.0 Tobacco use
CPT/HCPCS: 36415; 85025

== ENCOUNTER → 2024-11-12 10:21 | Outpatient (REF) | payer MEDICARE, SELFPAY ==
[2024-11-12 11:44] LABS: Hematocrit 45.6 % (39.0-52.0); Hemoglobin 16.4 g/dL (13.0-18.0); Mean Corp Hgb Conc. 36.0 g/dL (33.0-37.0); Mean Corpuscular Volume 95.2 fL (80.0-94.0); Platelet Count 157 10^3/uL (130-400); Red Cell Dist. Width 13.5 % (11.5-14.5)
== END ==
LOC: OIDL 10:21
PROVIDERS: ATTENDING PHYSICIAN Internal Medicine Hematology & Oncology; FAMILY PHYSICIAN Family Medicine
DX: D45 Polycythemia vera (principal); Z72.0 Tobacco use
CPT/HCPCS: 85025

== ENCOUNTER → 2024-12-10 14:26 | Outpatient (REF) | payer MEDICARE, SELFPAY ==
[2024-12-10 15:32] LABS: Hematocrit 38.2 % (39.0-52.0); Hemoglobin 13.8 g/dL (13.0-18.0); Mean Corp Hgb Conc. 36.1 g/dL (33.0-37.0); Mean Corpuscular Volume 97.2 fL (80.0-94.0); Platelet Count 162 10^3/uL (130-400); Red Cell Dist. Width 13.5 % (11.5-14.5)
== END ==
LOC: OID 14:26
PROVIDERS: ATTENDING PHYSICIAN Internal Medicine Hematology & Oncology
DX: D45 Polycythemia vera (principal)
CPT/HCPCS: 36415; 85025

== ENCOUNTER → 2024-12-31 09:31 | Outpatient (REF) | payer MEDICARE, SELFPAY ==
[2024-12-31 09:53] LABS: Hematocrit 43.1 % (39.0-52.0); Hemoglobin 15.4 g/dL (13.0-18.0); Mean Corp Hgb Conc. 35.7 g/dL (33.0-37.0); Mean Corpuscular Volume 98.4 fL (80.0-94.0); Platelet Count 205 10^3/uL (130-400); Red Cell Dist. Width 13.4 % (11.5-14.5)
== END ==
LOC: OIDL 09:31
PROVIDERS: ATTENDING PHYSICIAN Internal Medicine Hematology & Oncology
DX: D45 Polycythemia vera (principal); Z72.0 Tobacco use
CPT/HCPCS: 36415; 85025

== ENCOUNTER → 2025-01-16 09:17 | Outpatient (REF) | payer MEDICARE, SELFPAY ==
[2025-01-16 09:33] LABS: Hematocrit 43.7 % (39.0-52.0); Hemoglobin 15.6 g/dL (13.0-18.0); Mean Corp Hgb Conc. 35.7 g/dL (33.0-37.0); Mean Corpuscular Volume 98.2 fL (80.0-94.0); Platelet Count 228 10^3/uL (130-400); Red Cell Dist. Width 13.1 % (11.5-14.5)
== END ==
LOC: OIDL 09:17
PROVIDERS: ATTENDING PHYSICIAN Internal Medicine Hematology & Oncology
DX: D45 Polycythemia vera (principal); Z72.0 Tobacco use
CPT/HCPCS: 36415; 85025

== ENCOUNTER → 2025-01-28 10:10 | Outpatient (REF) | payer MEDICARE, SELFPAY ==
[2025-01-28 10:32] LABS: Hematocrit 40.9 % (39.0-52.0); Hemoglobin 14.7 g/dL (13.0-18.0); Mean Corp Hgb Conc. 35.9 g/dL (33.0-37.0); Mean Corpuscular Volume 96.9 fL (80.0-94.0); Platelet Count 289 10^3/uL (130-400); Red Cell Dist. Width 12.9 % (11.5-14.5)
== END ==
LOC: OIDL 10:10
PROVIDERS: ATTENDING PHYSICIAN Internal Medicine Hematology & Oncology
DX: D45 Polycythemia vera (principal); Z72.0 Tobacco use
CPT/HCPCS: 36415; 85025

== ENCOUNTER → 2025-02-18 09:22 | Outpatient (REF) | payer MEDICARE, SELFPAY ==
[2025-02-18 09:41] LABS: Hematocrit 42.1 % (39.0-52.0); Hemoglobin 15.1 g/dL (13.0-18.0); Mean Corp Hgb Conc. 35.9 g/dL (33.0-37.0); Mean Corpuscular Volume 98.1 fL (80.0-94.0); Platelet Count 235 10^3/uL (130-400); Red Cell Dist. Width 13.3 % (11.5-14.5)
== END ==
LOC: OIDL 09:22
PROVIDERS: ATTENDING PHYSICIAN Internal Medicine Hematology & Oncology
DX: D45 Polycythemia vera (principal); Z72.0 Tobacco use
CPT/HCPCS: 36415; 85025

== ENCOUNTER → 2025-03-04 09:15 | Outpatient (REF) | payer MEDICARE, SELFPAY ==
[2025-03-04 09:35] LABS: Hematocrit 40.1 % (39.0-52.0); Hemoglobin 14.4 g/dL (13.0-18.0); Mean Corp Hgb Conc. 35.9 g/dL (33.0-37.0); Mean Corpuscular Volume 98.0 fL (80.0-94.0); Platelet Count 271 10^3/uL (130-400); Red Cell Dist. Width 13.3 % (11.5-14.5)
== END ==
LOC: OIDL 09:15
PROVIDERS: ATTENDING PHYSICIAN Internal Medicine Hematology & Oncology
DX: D45 Polycythemia vera (principal); Z72.0 Tobacco use
CPT/HCPCS: 36415; 85025

== ENCOUNTER → 2025-03-25 09:15 | Outpatient (REF) | payer MEDICARE, SELFPAY ==
[2025-03-25 09:29] LABS: Hematocrit 44.0 % (39.0-52.0); Hemoglobin 14.9 g/dL (13.0-18.0); Mean Corp Hgb Conc. 33.9 g/dL (33.0-37.0); Mean Corpuscular Volume 103.5 fL (80.0-94.0); Platelet Count 260 10^3/uL (130-400); Red Cell Dist. Width 13.8 % (11.5-14.5)
== END ==
LOC: OIDL 09:15
PROVIDERS: ATTENDING PHYSICIAN Internal Medicine Hematology & Oncology
DX: D45 Polycythemia vera (principal); Z72.0 Tobacco use
CPT/HCPCS: 36415; 85025